=== PATIENT | male | born 1945 | race Caucasian/White ===

== ENCOUNTER 2017-02-09 19:57 | Observation (INO) ==
--- NOTE | 2017-02-09 20:14 | Emergency Department Note ---
Disposition Clinical Impression: Chest pain Qualifiers: Chest pain type: unspecified Qualified Code(s): R07.9 - Chest pain, unspecified Disposition: Admitted As Inpatient Condition: Undetermined Referrals: Aureliano Salamanca MD [Primary Care Provider] - Time of Disposition: 21:57 Chest Pain HPI - General Chief Complaint: ED Chest Pain Stated Complaint: chest pain Time Seen by Provider: 02/09/17 20:10 Source: patient, family Mode of arrival: ambulatory Limitations: no limitations Vital Signs Reviewed: Yes Nursing Notes Reviewed: Yes - History of Present Illness HPI Narrative: 71-year-old male with history of cardiac disease, hyperlipidemia, hypertension, diabetes arrives [facility] emergency department complaining of right sided chest discomfort after eating dinner this evening. The patient states he felt palpitations at the same time. The patient states is similar to his previous history of atrial fibrillation. The patient recently had a cardiac catheter with a stent placed roughly 3 weeks ago. The patient states, felt like his previous NV. The patient denies any other complaints at this time is resting comfortably in the room. The patient took 4 baby aspirin prior to arrival to the emergency department as well as 1 spray of his nitroglycerin spray. The patient states that did help his pain at that time. The patient is resting comfortably. Pt complaint: chest pain Onset (ago): hour(s) (1.5) Time: 19:30 Pain Location: substernal, right chest Severity: mild Severity scale (1-10): 2 Quality: tightness Pain Radiation: RUE Improves with: nothing Worsens with: nothing Associated symptoms: Reports: dyspnea, palpitations. Denies: diaphoresis Treatments prior to arrival chest pain: aspirin, nitroglycerin - Related Data On Oral Contraceptives: No Home Medications Medication Instructions Recorded Confirmed Atorvastatin [Lipitor] 40 mg PO HS 01/01/15 01/18/17 Canagliflozin [Invokana] 300 mg PO QAM 01/01/15 01/18/17 Esomeprazole Magnesium [Nexium] 40 mg PO QAM 01/01/15 01/18/17 Isosorbide MONOnitrate (24 HR) 30 mg PO BID 01/01/15 01/18/17 [Imdur] Glimepiride [Amaryl] 4 mg PO DAILY 10/08/15 01/18/17 Apixaban [Eliquis] 2.5 mg PO BID 01/18/17 01/18/17 Carvedilol 12.5 mg PO BID 01/18/17 01/18/17 Fenofibrate Nanocrystallized 48 mg PO DAILY 01/18/17 01/18/17 [Tricor] Gabapentin [Neurontin] 600 mg PO TID 01/18/17 01/18/17 Sitagliptin Phosphate [Januvia] 50 mg PO DAILY 01/18/17 01/18/17 Previous Rx's Medication Instructions Recorded Clopidogrel [Plavix] 75 mg PO DAILY #30 tablet 01/22/16 Aspirin 81 mg PO DAILY #30 01/20/17 Diltiazem CD (24hr) [Cardizem CD] 120 mg PO DAILY #30 01/20/17 Allergies Allergy/AdvReac Type Severity Reaction Status Date / Time bacitracin Allergy Intermediate Blister Verified 01/18/17 16:57 [From Neosporin ([id number])] Neomycin Allergy Intermediate Blister Verified 01/18/17 16:57 [From Neosporin ([id number])] polymyxin B Allergy Intermediate Blister Verified 01/18/17 16:57 [From Neosporin ([id number])] All systems ED: reviewed and negative except as stated. Constitutional: Denies: fever, chills Cardiovascular: Reports: chest pain, palpitations, dyspnea on exertion. Denies : edema, syncope Respiratory: Reports: dyspnea. Denies: cough, wheezes, hemoptysis, sputum production Gastrointestinal: Denies: abdominal pain, nausea, vomiting Genitourinary: Denies: urgency, dysuria Musculoskeletal: Denies: back pain Neurological: Denies: headache Chest Pain PMH - Past Medical History Medical history: Reports: arthritis, atrial fibrillation, cancer, coronary artery disease, diabetes, GERD, hyperlipidemia, hypertension, myocardial infarction Surgical history: Reports: angioplasty/stent, cataract, cholecystectomy, coronary bypass (CABG), other (AF ablation 2010 outside hospital) Psychiatric history: Reports: no psych history - Social History Smoking Status: Former smoker Alcohol use: Reports: none Drug use: Reports: none Physical Exam - General Limitations: no limitations General appearance: alert, in no apparent distress - Head Head exam: atraumatic, normocephalic, normal inspection - Eye Eye exam: Present: normal appearance, PERRL, EOMI - ENT ENT exam: normal exam, normal oropharynx, mucous membranes moist - Neck Neck exam: Present: normal inspection, full ROM, trachea midline - Chest Chest inspection: Present: normal inspection, symmetric chest wall rise - Respiratory Respiratory exam: Present: normal lung sounds bilaterally - Cardiovascular Cardiovascular exam: Present: regular rate, normal rhythm, normal heart sounds - Abdominal Exam Abdominal exam: Present: soft, Non-Tender. Absent: tenderness, distention, guarding, rebound, rigidity - Extremities Exam Extremities exam: Present: normal inspection, full ROM. Absent: tenderness, pedal edema Course Vital Signs Temperature 98.1 F 02/09/17 20:00 Pulse Rate 100 02/09/17 20:00 Respiratory Rate 16 02/09/17 20:00 Blood Pressure 164/89 02/09/17 20:00 O2 Sat by Pulse Oximetry 95 02/09/17 20:00 Temperature 98.1 F 02/09/17 20:00 Pulse Rate 93 02/09/17 20:47 Respiratory Rate 18 02/09/17 20:47 Blood Pressure 145/76 02/09/17 20:47 O2 Sat by Pulse Oximetry 94 02/09/17 20:47 Oxygen Delivery Oxygen Delivery Room Air Chest Pain - MDM Narrative Medical decision making narrative: Patient's symptoms are resolved with nitroglycerin. Given the patient's previous stent and history, and the relief of nitroglycerin we will admit the patient to the hospitalist for further care and workup. Patient made aware and agrees to plan. Active and no EKG changes noted from previous EKG. We will admit the patient to the hospitalists for ACS rule out, accepted by Dr. Marrero. - Medical Records Medical records reviewed: Yes I reviewed the patient's medical records. - Lab Data Lab results reviewed: Yes I reviewed the patient's lab results. Result diagrams: 02/09/17 20:49 02/09/17 20:49 Lab Results 02/09/17 02/09/17 02/09/17 Range/Units 20:49 20:49 20:49 WBC 9.6 (4.3-11.1) K/mcL RBC 4.64 (4.19-5.50) M/mcL Hgb 11.1 L (12.9-16.9) g/dL Hct 34.0 L (37.5-50.1) % MCV 73.3 L (83.0-100.0) fL MCH 23.9 L (28.0-33.3) pg MCHC 32.6 (31.6-35.5) g/dL RDW 17.6 H (11.5-14.5) % Plt Count 231 (140-400) K/mcL MPV 8.8 L (9.4-12.4) fL Immature Gran % 0.6 (0-4) % Seg Neutrophils % 73.0 % Lymphocytes % 16.8 % Monocytes % 7.1 % Eosinophils % 2.1 % Basophils % 0.4 % Neutrophils # 7.0 (1.6-8.9) K/mcL Lymphocytes # 1.6 (0.6-4.6) K/mcL Monocytes # 0.7 (0.0-1.3) K/mcL Eosinophils # 0.2 (0.0-0.6) K/mcL Basophils # 0.0 (0.0-0.2) K/mcL PT 14.0 H (9.4-12.1) Seconds INR 1.3 APTT 35.6 (26.0-36.0) Seconds Sodium 134 L (136-145) mEq/L Potassium 4.1 (3.5-4.5) mEq/L Chloride 100 (98-109) mEq/L Carbon Dioxide 21 (19-29) mEq/L BUN 19 (8-26) mg/dL Creatinine 1.44 H (0.72-1.25) mg/dL Est GFR ( Amer) 59 L (> 60) Est GFR (Non-Af Amer) 49 L (> 60) BUN/Creatinine Ratio 13 (6-26) Glucose 231 H (70-99) mg/dL Calculated Osmolality 288 (280-300) Calcium 9.8 (8.6-10.8) mg/dL Troponin I (0-0.03) ng/mL 02/09/17 Range/Units 20:49 WBC (4.3-11.1) K/mcL RBC (4.19-5.50) M/mcL Hgb (12.9-16.9) g/dL Hct (37.5-50.1) % MCV (83.0-100.0) fL MCH (28.0-33.3) pg MCHC (31.6-35.5) g/dL RDW (11.5-14.5) % Plt Count (140-400) K/mcL MPV (9.4-12.4) fL Immature Gran % (0-4) % Seg Neutrophils % % Lymphocytes % % Monocytes % % Eosinophils % % Basophils % % Neutrophils # (1.6-8.9) K/mcL Lymphocytes # (0.6-4.6) K/mcL Monocytes # (0.0-1.3) K/mcL Eosinophils # (0.0-0.6) K/mcL Basophils # (0.0-0.2) K/mcL PT (9.4-12.1) Seconds INR APTT (26.0-36.0) Seconds Sodium (136-145) mEq/L Potassium (3.5-4.5) mEq/L Chloride (98-109) mEq/L Carbon Dioxide (19-29) mEq/L BUN (8-26) mg/dL Creatinine (0.72-1.25) mg/dL Est GFR ( Amer) (> 60) Est GFR (Non-Af Amer) (> 60) BUN/Creatinine Ratio (6-26) Glucose (70-99) mg/dL Calculated Osmolality (280-300) Calcium (8.6-10.8) mg/dL Troponin I 0.01 (0-0.03) ng/mL - Radiology Data Radiology results reviewed: Yes I reviewed the patient's radiology results. - EKG Data EKG attestation: Yes I reviewed and interpreted this EKG. EKG results narrative: Heart rate 97 bpm. DC interval 192 ms. QTc 462 ms. Sinus rhythm with marketed right axis deviation and right bundle branch pattern noted on EKG. No ST elevation or ST depression noted. No consistent findings was Garcia criteria. Attestation Statement - Attestation Attestation: I examined this patient and my medical decision-making was reviewed with the Resident Physician. I agree with the documented findings, disposition and treatment plan as described except to the extent set forth below. Patient to ED complaining of chest pain. Right-sided onset this evening after eating. Improve with the nitroglycerin spray home. History coronary disease with last stent placement 3 weeks ago. On exam he is in no acute distress with clear lungs. Plan. Cardiac workup. EKG unchanged from prior. Likely observation.
[2017-02-09] MEDS ORDERED: Nitroglycerin 0.4 MG TAB.SUBL SL ONE (20:23)
[2017-02-09 20:55] LABS: Basophils % 0.4 %; Eosinophils # 0.2 K/mcL (0.0-0.6); Eosinophils % 2.1 %; Hemoglobin 11.1 g/dL (12.9-16.9); Immature Granulocytes % 0.6 % (0-4); Lymphocytes # 1.6 K/mcL (0.6-4.6); Lymphocytes % 16.8 %; Mean Corpuscular HGB Conc 32.6 g/dL (31.6-35.5); Mean Corpuscular Hemoglobin 23.9 pg (28.0-33.3); Mean Corpuscular Volume 73.3 fL (83.0-100.0); Mean Platelet Volume 8.8 fL (9.4-12.4); Monocytes # 0.7 K/mcL (0.0-1.3); Monocytes % 7.1 %; Platelet Count 231 K/mcL (140-400); Red Blood Count 4.64 M/mcL (4.19-5.50); Red Cell Distribution Width 17.6 % (11.5-14.5)
[2017-02-09 21:02] LABS: INR 1.3
[2017-02-09 21:05] LABS: Activated Partial Thrombo Time 35.6 Seconds (26.0-36.0)
[2017-02-09 21:09] LABS: Calcium 9.8 mg/dL (8.6-10.8); Potassium 4.1 mEq/L (3.5-4.5)
[2017-02-09] MEDS ORDERED: Naloxone 0.4 MG/ML INJ IVP PRN (23:08)
[2017-02-09] MEDS ORDERED: Dextrose Gel 15 GM PO PRN ×2 (23:10)
[2017-02-09] MEDS ORDERED: *HR* Dextrose 50 % in Water (Syg) 50 ML SYRINGE IVP PRN (23:10)
[2017-02-09] MEDS ORDERED: D5% in Water 1,000 ML IVC PRN (23:10)
[2017-02-09] MEDS ORDERED: Isosorbide MONOnitrate (24 HR) 30 MG TAB.ER.24H PO SCH (23:15)
[2017-02-09] MEDS ORDERED: APIXABAN 2.5 MG TABLET PO SCH ×3 (23:15→23:45)
[2017-02-09] MEDS ORDERED: LIPITOR 40 MG PO SCH (23:27)
--- NOTE | 2017-02-09 23:30 | Internal Med History&Physical ---
<Mine David M - Last Filed: 02/10/17 00:00> Date of Encounter: 02/10/17 Time of Encounter: 23:26 Assessment and Plan (1) Chest pain Current visit: Yes Status: Acute Patient reporting right sided chest pain accompanied by palpitations and relieved by nitro and aspirin this evening. EKG showed sinus rhythm with right bundle branch block and no ST elevations or depressions. Troponin was negative at 0.01. Patient had LHC 3 weeks ago with stent to SVG-1st diag. Echocardiogram at that time showed LVEF 45-50%, mild LV systolic dysfunction, moderate LV diastolic dysfunction and a small to moderate pericardial effusion at the right atrium. Continuous threat monitoring analyst serial troponins. echocardiogram to re-evaluate pericardial effusion cardiology consulted, will need to be called in the morning. NPO after midnight in case of possible testing per cardiology. Qualifiers: Chest pain type: precordial pain Qualified Code(s): R07.2 - Precordial pain (2) Coronary artery disease Current visit: Yes Status: Chronic Patient has CAD s/p CABG in 1999 and recent stents to Left main in May ( [facility]) and to the SVG-1st diag 3 weeks ago. He experienced chest pain today which was relieved by nitro and aspirin. Continue home doses of aspirin, plavix, atorvastatin, imdur. Qualifiers: Coronary Disease-Associated Artery/Lesion type: [place] artery [place] vs. transplanted heart: [place] heart Associated angina: with unstable angina Qualified Code(s): I25.110 - Atherosclerotic heart disease of [place] coronary artery with unstable angina pectoris (3) PAF (paroxysmal atrial fibrillation) Current visit: Yes Status: Acute Patient has history of paroxysmal atrial fibrillation, he is on diltiazem for rhythm control and Eliquis for anti-coagulation. EKG today shows sinus rhythm with right bundle branch block. Continuous threat monitoring analyst. Continue home doses of Eliquis and diltiazem. (4) Type 2 diabetes mellitus Current visit: Yes Status: Chronic Hold invokana, januvia and Amaryl. Given patient's CKD, should consider change to therapy, discuss with PCP as outpatient. Check Hgb A1c diabetic, heart healthy diet. Check blood sugars ACHS Sliding scale correction dose ACHS hypoglycemic protocol. Qualifiers: Diabetes mellitus complication status: with hyperglycemia Diabetes mellitus prison insulin use: without prison use Qualified Code(s): E11.65 - Type 2 diabetes mellitus with hyperglycemia (5) CKD (chronic kidney disease) Current visit: Yes Status: Acute Patient has CKD, but reports he does no follow with a intern retail. Creatinine of 1.44 today is consistent with recent values. Consider outpatient referral to Nephrology. Qualifiers: Chronic kidney disease stage: stage 3 (moderate) Qualified Code(s): N18.3 - Chronic kidney disease, stage 3 (moderate) (6) DVT prophylaxis Current visit: Yes Status: Acute anti-embolic stockings Patient on Eliquis for paroxysmal Afib, additional pharmacologic prophylaxis not warranted. Internal Medicine - H&P: HPI Chief complaint: chest pain Admitted From: Emergency Dept Plans for Post Hospital Care: Home History of present illness: Mr. Tiwari is a 71 year old male with history of hypertension, hyperlipidemia, atrial fibrillation chronic kidney disease, type 2 diabetes, coronary artery disease status post CABG and status post recent stent placements presented to the emergency department today with complaints of chest pain. Patient reports that he experienced right-sided chest pain after dinner this evening accompanied by palpitations. The pain radiated down his right arm. He describes the pain as sharp, and was relieved by aspirin and nitroglycerin he took at home. He is concerned about his atrial fibrillation since he was experiencing the palpitations. Patient denies any lightheadedness, nausea, vomiting, fever, chills or sweats. Patient reports mild headache on and off all week. He reports shortness of breath which he describes as chronic in nature and not worse from baseline. Patient was recently admitted 3 weeks ago at which time he had A. fib with RVR which required cardioversion and an NSTEMI resulting in left heart catheter with stent to one of his bypass grafts. Evaluation in the emergency department today including EKG which showed sinus rhythm with right bundle branch block and no ST elevations or depressions. Chest x-ray showed no acute cardiopulmonary abnormality. Troponin was negative at 0.01. Creatinine was elevated 1.44, but this seems to be consistent with his baseline. He is hyperglycemic with glucose of 231. On exam, patient alert and oriented, in no acute distress. Heart had regular rate and rhythm. Lungs are clear bilaterally to auscultation. Abdomen soft, obese, nontender, with positive bowel sounds. No peripheral edema. Past Med Surg Social Fam HX - Past Medical History Medical history: arthritis, atrial fibrillation, cancer, coronary artery disease , diabetes, GERD, hyperlipidemia, hypertension, myocardial infarction, renal disease Psychiatric history: no psych history - Past Surgical History Surgical History: angioplasty/stent, cataract, cholecystectomy, coronary bypass (CABG), other - Social History Smoking Status: Former smoker Smokeless Tobacco Status: No Alcohol use: none Drug use: none - Family History Father Adopted: No Family Member Ethnicity: Non- Living Status: Hx Family Cardiac Disorders: Yes (CAD) Hx Family Endocrine Disorder: Yes (Diabetes) Mother Living Status: Hx Family Endocrine Disorder: Yes (Diabetes) Internal Medicine - H&P: Meds Atorvastatin [Lipitor] 40 mg PO HS 01/01/15 [History] Canagliflozin [Invokana] 300 mg PO QAM 01/01/15 [History] Esomeprazole Magnesium [Nexium] 40 mg PO QAM 01/01/15 [History] Isosorbide MONOnitrate (24 HR) [Imdur] 30 mg PO BID 01/01/15 [History] Glimepiride [Amaryl] 4 mg PO DAILY 10/08/15 [History] Clopidogrel [Plavix] 75 mg PO DAILY #30 tablet 01/22/16 [Rx] Apixaban [Eliquis] 2.5 mg PO BID 01/18/17 [History] Carvedilol 12.5 mg PO BID 01/18/17 [History] Fenofibrate Nanocrystallized [Tricor] 48 mg PO DAILY 01/18/17 [History] Gabapentin [Neurontin] 600 mg PO TID 01/18/17 [History] Sitagliptin Phosphate [Januvia] 50 mg PO DAILY 01/18/17 [History] Aspirin 81 mg PO DAILY #30 01/20/17 [Rx] Diltiazem CD (24hr) [Cardizem CD] 120 mg PO DAILY #30 01/20/17 [Rx] 3 Allergy/AdvReac Type Severity Reaction Status Date / Time bacitracin Allergy Intermediate Blister Verified 01/18/17 16:57 [From Neosporin ([id number])] Neomycin Allergy Intermediate Blister Verified 01/18/17 16:57 [From Neosporin ([id number])] polymyxin B Allergy Intermediate Blister Verified 01/18/17 16:57 [From Neosporin ([id number])] All Systems PM: A 10-system review of systems was performed and is negative for pertinent findings except as documented above in the HPI. - Constitutional Constitutional: no chills, no fever(s), no night sweats - EENT Eyes: no change in vision, no discharge, no pain, no photophobia Ears: no ear discharge, no ear pain, no tinnitus Nose, mouth and throat: no dysphagia, no nasal discharge, no neck pain, no sore throat - Cardiovascular Cardiovascular ROS IM: chest pain, dyspnea, palpitations, no diaphoresis, no lightheadedness, no syncope - Respiratory Respiratory: dyspnea, no cough, no wheezing, no excessive phlegm production - Gastrointestinal Gastrointestinal: no abdominal pain, no diarrhea, no hematemesis, no hematochezia, no melena, no nausea, no vomiting - Musculoskeletal Musculoskeletal ROS IM: no numbness, no tingling - Integumentary Integumentary IM: no rash, no unusual bruising - Neurological Neurological ROS: headache(s), no confusion, no convulsions, no focal weakness, no numbness, no tingling, no tremor(s) - Hematologic/Lymphatic Hematologic/Lymphatic: no easy bruising - Constitutional Vitals: Temp Pulse Resp BP Pulse Ox 98.1 F 88 18 144/81 95 02/09/17 22:31 02/09/17 22:17 02/09/17 22:31 02/09/17 22:31 02/09/17 22:17 General appearance: Present: A&O X 3, morbidly obese, pleasant, no acute distress - Head Head exam: Present: atraumatic, normocephalic - Eye Eye exam: Present: PERRL, conjuntiva pink, sclera anicteric Pupils: Present: PERRL - Neck Neck exam general surgery: Present: supple, trachea midline. Absent: lymphadenopathy - Respiratory Respiratory exam: Present: CTAB. Absent: accessory muscle use, rales, rhonchi, wheezes - Cardiovascular Cardiovascular exam: Present: RRR, +S1, +S2. Absent: diastolic murmur, gallop, rubs, systolic murmur - GI/Abdominal GI/Abdominal exam: Present: normal bowel sounds, soft, no peritoneal signs. Absent: distended, tenderness - Extremities Exam Extremities exam: Present: warm, radial pulses palpable and symmetrical. Absent : calf tenderness, cyanotic, pedal edema - Neurological Exam Neurological exam: Present: CN II-XII intact, oriented X3, no focal deficits. Absent: pronater drift, facial droop, speech deficit - Skin Skin exam: Present: dry, intact Internal Med - H&P Results - Labs CBC & Chem 7: 02/09/17 20:49 02/09/17 20:49 Labs: All Lab Results (24 Hours) 02/09/17 02/09/17 02/09/17 Range/Units 20:49 20:49 20:49 WBC 9.6 (4.3-11.1) K/mcL RBC 4.64 (4.19-5.50) M/mcL Hgb 11.1 L (12.9-16.9) g/dL Hct 34.0 L (37.5-50.1) % MCV 73.3 L (83.0-100.0) fL MCH 23.9 L (28.0-33.3) pg MCHC 32.6 (31.6-35.5) g/dL RDW 17.6 H (11.5-14.5) % Plt Count 231 (140-400) K/mcL MPV 8.8 L (9.4-12.4) fL Immature Gran % 0.6 (0-4) % Seg Neutrophils % 73.0 % Lymphocytes % 16.8 % Monocytes % 7.1 % Eosinophils % 2.1 % Basophils % 0.4 % Neutrophils # 7.0 (1.6-8.9) K/mcL Lymphocytes # 1.6 (0.6-4.6) K/mcL Monocytes # 0.7 (0.0-1.3) K/mcL Eosinophils # 0.2 (0.0-0.6) K/mcL Basophils # 0.0 (0.0-0.2) K/mcL PT 14.0 H (9.4-12.1) Seconds INR 1.3 APTT 35.6 (26.0-36.0) Seconds Sodium 134 L (136-145) mEq/L Potassium 4.1 (3.5-4.5) mEq/L Chloride 100 (98-109) mEq/L Carbon Dioxide 21 (19-29) mEq/L BUN 19 (8-26) mg/dL Creatinine 1.44 H (0.72-1.25) mg/dL Est GFR ( Amer) 59 L (> 60) Est GFR (Non-Af Amer) 49 L (> 60) BUN/Creatinine Ratio 13 (6-26) Glucose 231 H (70-99) mg/dL Calculated Osmolality 288 (280-300) Calcium 9.8 (8.6-10.8) mg/dL Troponin I (0-0.03) ng/mL 02/09/17 Range/Units 20:49 WBC (4.3-11.1) K/mcL RBC (4.19-5.50) M/mcL Hgb (12.9-16.9) g/dL Hct (37.5-50.1) % MCV (83.0-100.0) fL MCH (28.0-33.3) pg MCHC (31.6-35.5) g/dL RDW (11.5-14.5) % Plt Count (140-400) K/mcL MPV (9.4-12.4) fL Immature Gran % (0-4) % Seg Neutrophils % % Lymphocytes % % Monocytes % % Eosinophils % % Basophils % % Neutrophils # (1.6-8.9) K/mcL Lymphocytes # (0.6-4.6) K/mcL Monocytes # (0.0-1.3) K/mcL Eosinophils # (0.0-0.6) K/mcL Basophils # (0.0-0.2) K/mcL PT (9.4-12.1) Seconds INR APTT (26.0-36.0) Seconds Sodium (136-145) mEq/L Potassium (3.5-4.5) mEq/L Chloride (98-109) mEq/L Carbon Dioxide (19-29) mEq/L BUN (8-26) mg/dL Creatinine (0.72-1.25) mg/dL Est GFR ( Amer) (> 60) Est GFR (Non-Af Amer) (> 60) BUN/Creatinine Ratio (6-26) Glucose (70-99) mg/dL Calculated Osmolality (280-300) Calcium (8.6-10.8) mg/dL Troponin I 0.01 (0-0.03) ng/mL - Diagnostic Studies Chest x-ray Additional comments: Chest X-Ray 02/09/17 20:23 IMPRESSION: No acute cardiopulmonary abnormality. D/ / Reinaldo Garcia MD / Reinaldo Garcia MD Interpreting Provider: Reinaldo Garcia MD <James Ryan - Last Filed: 02/10/17 04:17> Date of Encounter: 02/10/17 Time of Encounter: 02:40 - Cardiovascular Cardiovascular ROS IM: chest pain, dyspnea - Respiratory Respiratory: no cough, no hemoptysis, no chest congestion - Genitourinary Genitourinary ROS male: no dysuria, no flank pain, no hematuria - Musculoskeletal Musculoskeletal ROS IM: no arthralgias, no back pain - Neurological Neurological ROS: no focal weakness - Endocrine Endocrine IM: no polydipsia, no polyuria - Constitutional Vitals: Temp Pulse Resp BP Pulse Ox 98.2 F 83 16 161/79 97 02/09/17 23:38 02/09/17 23:38 02/09/17 23:38 02/09/17 23:38 02/09/17 23:38 General appearance: Present: A&O X 3, pleasant, no acute distress - Head Head exam: Present: normal inspection - Eye Eye exam: Present: PERRL. Absent: scleral icterus Pupils: Present: normal accommodation - ENT ENT exam: Present: mucous membranes dry, normal exam - Neck Neck exam general surgery: Present: supple. Absent: tenderness - Expanded Neck Exam Neck exam: Absent: carotid bruit - Respiratory Respiratory exam: Present: CTAB. Absent: rales, rhonchi, wheezes - Cardiovascular Cardiovascular exam: Present: RRR, +S1, +S2. Absent: systolic murmur - GI/Abdominal GI/Abdominal exam: Present: soft. Absent: tenderness - Back Exam Back exam: Absent: CVA tenderness (L), CVA tenderness (R) - Psychiatric Psychiatric exam: Present: normal affect, normal mood - Skin Skin exam: Present: dry, warm. Absent: rash Internal Med - H&P Results - Labs CBC & Chem 7: 02/09/17 20:49 02/09/17 20:49 - EKG Data -: EKG Interpreted by Myself EKG shows normal: sinus rhythm - EKG Data EKG comments: 02/10/17 04:12 NSR; no acute changes - Diagnostic Studies Chest x-ray Status: image reviewed by me (negative) - Attending Attestation I discussed the patient [place], PMH, ROS, lab data, and exam findings with Mine David CNP. I then saw and examined patient independently as well. Patient and confirm the above history. He is chest pain free now. He took aspirin and SL NTG en route to ER. By the time he arrived to ER, he was chest pain free. I reviewed his old records and recent ECHO report where he had a mild to moderate pericardial effusion. We will cycle troponins, repeat ECHO in the morning, and consult cardiology. He may need further cardiac work-up/ intervention. Other than my comments above and noted exam findings, I agree with Mine's assessment and plan.
[2017-02-09] MEDS: IMDUR 30 MG PO SCH (23:54)
[2017-02-09] MEDS: Gabapentin 300 MG CAPSULE PO SCH (23:55)
[2017-02-09] MEDS: COREG 25 MG PO SCH (23:59)
[2017-02-10 02:15] LABS: Hemoglobin A1C 6.5 %
[2017-02-10 04:15] LABS: Basophils # 0.1 K/mcL (0.0-0.2); Basophils % 0.7 %; Eosinophils # 0.2 K/mcL (0.0-0.6); Eosinophils % 2.7 %; Hematocrit 33.1 % (37.5-50.1); Hemoglobin 10.7 g/dL (12.9-16.9); Immature Granulocytes % 0.6 % (0-4); Lymphocytes # 1.7 K/mcL (0.6-4.6); Lymphocytes % 24.3 %; Mean Corpuscular HGB Conc 32.3 g/dL (31.6-35.5); Mean Corpuscular Hemoglobin 24.2 pg (28.0-33.3); Mean Corpuscular Volume 74.7 fL (83.0-100.0); Mean Platelet Volume 9.1 fL (9.4-12.4); Monocytes # 0.6 K/mcL (0.0-1.3); Monocytes % 8.4 %; Neutrophils # 4.5 K/mcL (1.6-8.9); Platelet Count 215 K/mcL (140-400); Red Blood Count 4.43 M/mcL (4.19-5.50); Segmented Neutrophils % 63.3 %
[2017-02-10 04:28] LABS: BUN/Creatinine Ratio 15 (6-26); Blood Urea Nitrogen 19 mg/dL (8-26); Calcium 9.4 mg/dL (8.6-10.8); Carbon Dioxide 25 mEq/L (19-29); Chloride 100 mEq/L (98-109); Glucose 176 mg/dL (70-99); Osmolality,Calculated 285 (280-300); Sodium 134 mEq/L (136-145); eGFR For African Americans > 60 (> 60); eGFR For Non-African Americans 57 (> 60)
[2017-02-10] MEDS ORDERED: Aspirin 325 MG TABLET PO ONE (04:46)
--- NOTE | 2017-02-10 04:52 | Event Note ---
Date of Encounter: 02/10/17 Time of Encounter: 04:49 Second serial troponin elevated from 0.01 to 0.14, patient denies CP and is resting comfortably in bed. Patient took last dose of Eliquis 2.5mg and ASA 325mg PO last night. Will order repeat EKG and start low dose Heparin drip. Trend serial troponin and await cardiology consultation.
[2017-02-10] MEDS ORDERED: NEXIUM 40MG PO SCH (06:30)
[2017-02-10] MEDS: COREG 25 MG PO SCH ×2 (08:16→16:22)
[2017-02-10] MEDS: Gabapentin 300 MG CAPSULE PO SCH ×2 (08:16→15:47)
[2017-02-10] MEDS: IMDUR 30 MG PO SCH (08:17)
[2017-02-10] MEDS: Insulin LISPRO 300 UNITS/3 ML VIAL SQ SCH ×3 (08:22→16:24)
[2017-02-10] MEDS ORDERED: 0.9 % Sodium Chloride 250 ML IVC ONE (08:34)
--- NOTE | 2017-02-10 08:57 | Cardiology Consult Note ---
Date of Encounter: 02/10/17 Time of Encounter: 08:55 Assessment and Plan (1) PAF (paroxysmal atrial fibrillation) Current Visit: Yes Status: Chronic Per Cardiology: Known history of paroxysmal atrial fibrillation. reviewed from last visit the patient presented with A. fib with RVR requiring 1 fibrillation for conversion. During hospital stay Cardizem CD 120 mg by mouth daily was initiated. Patient remains on Coreg 12 and half milligrams by mouth twice a day. No further events noted on telemetry. Patient appears to have brief episode of A. fib with RVR based on his presentation. Will increase Cardizem CD to 240 mg by mouth daily. Regarding long-term anticoagulation, currently taking Eliquis 2.5 mg by mouth twice a day-- reports following with Dr. Dominguez in currently taking aspirin and Plavix with his anticoagulation for one month since his stent. They report plans to eventually discontinue aspirin in the near future and have further discussion regarding increasing dose of his Eliquis. Assuming no significant findings on echo, would discontinue heparin drip and resume his anticoagulation. (2) Chest pain Current Visit: Yes Status: Acute Per Cardiology: Currently chest pain-free. Symptoms occurred and what appears to be setting of A. fib with RVR that lasted for about 10 minutes. Prior to event has not been having chest pain since recent stenting and not requiring nitroglycerin pills. Qualifiers: Chest pain type: precordial pain Qualified Code(s): R07.2 - Precordial pain (3) Troponin level elevated Current Visit: No Status: Acute Per Cardiology: Recent non-STEMI January 2017 with peak troponin 3.56. Initial troponin negative and second troponin mild elevation of 0.14 and now 0.09. Of note has mild troponin elevations January 2016 and December 2014 as well. Currently on IV heparin drip. Do not suspect non-STEMI, suspect demand ischemia in apparent setting of A. fib with RVR. Echo pending. Further recommendations pending echo results. (4) Coronary artery disease Current Visit: Yes Status: Chronic Per Cardiology: Known history of CAD with previous stenting and CABG 3 in 1999. Last heart catheterization in January 2017 in setting of non-STEMI showed patent CHATMAN to mid LAD, patent SVG to OM1, patent SVG to right PDA, SVG to diagonal 1 with 80- 90% lesion status post PTCA and bare-metal stent placement. Patient currently taking his home medications of Imdur 30 mg by mouth daily, Lipitor 40 mg by mouth daily, Coreg 12-1/2 mg by mouth twice a day, Plavix 75 mg by mouth daily, Cardizem CD 120 mg by mouth daily. Qualifiers: Coronary Disease-Associated Artery/Lesion type: [place] artery [place] vs. transplanted heart: [place] heart Associated angina: with unstable angina Qualified Code(s): I25.110 - Atherosclerotic heart disease of [place] coronary artery with unstable angina pectoris (5) CKD (chronic kidney disease) Current Visit: Yes Status: Chronic Per Cardiology: History of CK D stage IIIa, currently about baseline. Qualifiers: Chronic kidney disease stage: stage 3 (moderate) Qualified Code(s): N18.3 - Chronic kidney disease, stage 3 (moderate) Discussion w patient/family: The assessment and plan as outlined above was discussed with the patient and/or family members who expressed understanding and agreement. All questions were answered. Thank you for involving us in the care of your patient. Please call with any questions. History of Present Illness Consult date: 02/10/17 Requesting physician: James Ryan Consult reason: CP Chief complaint: R sided CP with HR 160's (I was in afib) History of present illness: Mr. Tiwari is a 71 year old male with a relevant past medical history of CAD with stenting and CABG, paroxysmal atrial fibrillation with ablation in 2009, hypertension, hyperlipidemia, diabetes mellitus type 2, GERD, CKD 3a. Recently seen by cardiology during hospital stay January 2017 and underwent left heart catheterization with bare metal stent to SVG to right PDA. Cardiology consult for chest pain and concerns of previous pericardial effusion. Patient seen today with at bedside. Reports all Dr. Dominguez after last hospitalization for his non-STEMI and stenting and since that visit has been asymptomatic until yesterday evening. He reports while eating dinner yesterday he developed sudden onset of right-sided chest tightness. He reports he checked his blood pressures systolically when the 150s initially noted a heart rate about 110 and repeat was in the 160s. He felt he was back in his A. fib. He reports symptoms lasted for a total of about 10 minutes and eventually subsided. He denies any recurrence during hospital stay. He reports compliance with medications and has not missed his Plavix or aspirin. He reports he continues on Eliquis 2.5 mg by mouth twice a day with pending discontinuation of aspirin in the next week. He denies any active bleeding or blood loss. He denies any recent infectious process. Has not utilized nitroglycerin. Past Med Surg Social Fam HX - Past Medical History Attestation: Yes The following information was validated with the patient. Source: patient, old records reviewed, obtained from family Medical history: arthritis, atrial fibrillation, cancer, coronary artery disease , diabetes, GERD, hyperlipidemia, hypertension, myocardial infarction, renal disease Psychiatric history: no psych history - Past Surgical History Surgical History: angioplasty/stent, cataract, cholecystectomy, coronary bypass (CABG), other - Social History Smoking Status: Former smoker Smokeless Tobacco Status: No Alcohol use: none Drug use: none - Family History Father Adopted: No Family Member Ethnicity: Non- Living Status: Hx Family Cardiac Disorders: Yes (CAD) Hx Family Endocrine Disorder: Yes (Diabetes) Mother Living Status: Hx Family Endocrine Disorder: Yes (Diabetes) Medications and Allergies Atorvastatin [Lipitor] 40 mg PO HS 01/01/15 [History] Canagliflozin [Invokana] 300 mg PO QAM 01/01/15 [History] Esomeprazole Magnesium [Nexium] 40 mg PO QAM 01/01/15 [History] Isosorbide MONOnitrate (24 HR) [Imdur] 30 mg PO BID 01/01/15 [History] Glimepiride [Amaryl] 4 mg PO DAILY 10/08/15 [History] Clopidogrel [Plavix] 75 mg PO DAILY #30 tablet 01/22/16 [Rx] Apixaban [Eliquis] 2.5 mg PO BID 01/18/17 [History] Carvedilol 12.5 mg PO BID 01/18/17 [History] Fenofibrate Nanocrystallized [Tricor] 48 mg PO DAILY 01/18/17 [History] Gabapentin [Neurontin] 600 mg PO TID 01/18/17 [History] Sitagliptin Phosphate [Januvia] 50 mg PO DAILY 01/18/17 [History] Aspirin 81 mg PO DAILY #30 01/20/17 [Rx] Diltiazem CD (24hr) [Cardizem CD] 120 mg PO DAILY #30 01/20/17 [Rx] 3 Allergy/AdvReac Type Severity Reaction Status Date / Time bacitracin Allergy Intermediate Blister Verified 01/18/17 16:57 [From Neosporin ([id number])] Neomycin Allergy Intermediate Blister Verified 01/18/17 16:57 [From Neosporin ([id number])] polymyxin B Allergy Intermediate Blister Verified 01/18/17 16:57 [From Neosporin ([id number]-[id number]-[id number])] All Systems Review: A 10-system review of systems was performed and is negative for pertinent findings except as documented above in the HPI. - Cardiovascular Cardiovascular: as per HPI, chest pain at rest, irregular heart rhythm, rapid heart rate Physical Examination Vital Signs, Last 4 Hours Temp Pulse Resp BP Pulse Ox 02/10/17 06:58 97.4 F L 77 18 93/60 96 General: Conversant, No Apparent Distress HEENT: Atraumatic, Normocephaly, Mucus Membranes Moist Neck: No JVD, Normal carotid pulses Cardiac: Reg Rate and Rhythm, Normal S1 and S2, No Murmur Lungs: Normal Breath Sounds, No Wheeze, Rales, Rhonchi Neuro: Alert and responsive, No focal deficits noted Abdomen: Soft, Non-Tender Skin: No rashes noted on visualized skin Musculoskeletal: No Chest Wall Tenderness Extremities: No Clubbing, No Cyanosis, No Edema, Normal Pulses Results 02/10/17 03:41 02/10/17 03:41 Lab Results Laboratory Tests 01/20/17 02/09/17 02/09/17 05:23 20:49 20:49 INR 1.3 Creatinine 1.44 H Est GFR (Non-Af Amer) 52 L 49 L Magnesium 2.0 Troponin I 02/09/17 02/10/17 02/10/17 20:49 03:41 03:41 INR Creatinine 1.25 Est GFR (Non-Af Amer) 57 L Magnesium Troponin I 0.01 0.14 H* ITS Impressions Chest X-Ray 02/09/17 20:23 IMPRESSION: No acute cardiopulmonary abnormality. D/ / Reinaldo Garcia MD / Reinaldo Garcia MD Interpreting Provider: Reinaldo Garcia MD Active Medications Dextrose/Water (Dextrose 50% (Syg)) 25 ml IVP AD PRN PRN Reason: Hypoglycemia Stop: 08/11/17 23:11 Docusate Sodium (Colace) 100 mg PO BID PRN PRN Reason: Constipation Stop: 08/11/17 23:09 Gabapentin (Neurontin) 600 mg PO TID KAELA Stop: 08/11/17 23:16 Last Admin: 02/10/17 08:16 Dose: Not Given Glucagon (Glucagen) 1 mg IM ONCE PRN PRN Reason: Hypoglycemia Stop: 08/11/17 23:11 Glucose (Gluctose) 15 gm PO ONCE PRN PRN Reason: Hypoglycemia Stop: 08/11/17 23:11 Glucose (Gluctose) 30 gm PO ONCE PRN PRN Reason: Hypoglycemia Stop: 08/11/17 23:11 Heparin Sodium (Porcine) (Heparin) 4,000 unit IVP ONCE ONE Stop: 02/10/17 11:01 Heparin Sodium (Porcine) (Heparin) 4,000 unit IVP Q6HR PRN PRN Reason: SEE COMMENTS Stop: 08/12/17 11:01 Heparin Sodium (Porcine) (Heparin) 2,000 unit IVP Q6H PRN PRN Reason: SEE COMMENTS Stop: 08/12/17 11:01 Dextrose (Dextrose 5%) 1,000 mls @ 100 mls/hr IVC .Q10H PRN PRN Reason: HYPOGLYCEMIA Stop: 08/11/17 23:11 Heparin Sodium/Dextrose (Heparin 25,000 Unit/500 Ml D5w) 25,000 unit in 500 mls @ 20.044 mls/hr IVC .Q24H KAELA; 9 UNIT/KG/HR PRN Reason: Protocol Stop: 08/12/17 11:01 Insulin Human Lispro (Humalog) 0 units SQ TIDAC KAELA PRN Reason: Protocol Stop: 08/12/17 07:31 Last Admin: 02/10/17 08:22 Dose: 2 units Insulin Human Lispro (Humalog) 0 units SQ HS KAELA PRN Reason: Protocol Stop: 08/12/17 21:01 Naloxone HCl (Narcan) 0.4 mg IVP Q2MIN PRN PRN Reason: Opioid Reversal Stop: 08/11/17 23:09 Pharmacy Profile Note (Patient Taking Own Medication) 1 each PO DAILY KAELA Stop: 08/12/17 09:01 Last Admin: 02/10/17 08:17 Dose: 1 each Pharmacy Profile Note (Patient Taking Own Medication) 1 each PO DAILY KAELA Stop: 08/12/17 09:01 Last Admin: 02/10/17 08:18 Dose: 1 each Pharmacy Profile Note (Patient Taking Own Medication) 1 each PO DAILY KAELA Stop: 08/12/17 09:01 Last Admin: 02/10/17 08:17 Dose: 1 each Pharmacy Profile Note (Patient Taking Own Medication) 1 each PO 0630 KAELA Stop: 08/12/17 06:31 Last Admin: 02/10/17 06:10 Dose: 1 each Pharmacy Profile Note (Patient Taking Own Medication) 1 each PO DAILY KAELA Stop: 08/12/17 09:01 Last Admin: 02/10/17 08:18 Dose: 1 each Pharmacy Profile Note (Patient Taking Own Medication) 1 each PO HS KAELA Stop: 08/11/17 23:28 Last Admin: 02/09/17 23:54 Dose: 1 each Pharmacy Profile Note (Patient Taking Own Medication) 1 each PO BID KAELA Stop: 08/11/17 23:16 Last Admin: 02/10/17 08:17 Dose: 1 each Pharmacy Profile Note (Patient Taking Own Medication) 0.5 each PO BIDWM KAELA Stop: 08/11/17 23:46 Last Admin: 02/10/17 08:16 Dose: Not Given - Imaging and Cardiology Chest Xray: report reviewed Echo: pending, report reviewed Cardiac cath: report reviewed - EKG Interpretation EKG results cardiology: personally reviewed (ECG shows sinus rhythm with right bundle-branch block, comparable to baseline ECG.), normal ECG, sinus rhythm, no diagnostic ischemia, other (24-hour telemetry shows heart rate 78, sinus rhythm , no significant events noted) Consult Discharge Plan - Plan Referrals: Aureliano Salamanca MD [Primary Care Provider] - 02/16/17 2:00 pm
[2017-02-10] MEDS ORDERED: Aspirin 81 MG TAB.CHEW PO SCH (09:00)
[2017-02-10] MEDS ORDERED: DILTIAZEM 120 MG PO SCH (09:00)
[2017-02-10] MEDS ORDERED: ASPIRIN 81 MG PO SCH (09:00)
[2017-02-10] MEDS ORDERED: FENOFIBRATE 48 MG PO SCH (09:00)
[2017-02-10] MEDS ORDERED: *HR* Heparin 5,000 UNIT/ML VIAL IVP ONE (11:00)
[2017-02-10] MEDS ORDERED: *HR* Heparin 5,000 UNIT/ML VIAL IVP PRN ×2 (11:00)
[2017-02-10] MEDS ORDERED: Heparin 25,000 UNIT/500 ML D5W 25,000 UNIT/500 ML MLS IVC SCH (11:00)
[2017-02-10 14:55] VITALS: BP 135/71
--- NOTE | 2017-02-10 16:28 | Discharge Summary ---
Date of Encounter: 02/10/17 Time of Encounter: 16:24 - Discharge Medications Home Medications: Atorvastatin [Lipitor] 40 mg PO HS 01/01/15 [History] Canagliflozin [Invokana] 300 mg PO QAM 01/01/15 [History] Esomeprazole Magnesium [Nexium] 40 mg PO QAM 01/01/15 [History] Isosorbide MONOnitrate (24 HR) [Imdur] 30 mg PO BID 01/01/15 [History] Glimepiride [Amaryl] 4 mg PO DAILY 10/08/15 [History] Clopidogrel [Plavix] 75 mg PO DAILY #30 tablet 01/22/16 [Rx] Apixaban [Eliquis] 2.5 mg PO BID 01/18/17 [History] Carvedilol 12.5 mg PO BID 01/18/17 [History] Fenofibrate Nanocrystallized [Tricor] 48 mg PO DAILY 01/18/17 [History] Gabapentin [Neurontin] 600 mg PO TID 01/18/17 [History] Sitagliptin Phosphate [Januvia] 50 mg PO DAILY 01/18/17 [History] Aspirin 81 mg PO DAILY #30 01/20/17 [Rx] Diltiazem CD (24hr) [Cardizem CD] 120 mg PO DAILY #30 01/20/17 [Rx] Allergies/Adverse Reactions: 3 Allergy/AdvReac Type Severity Reaction Status Date / Time bacitracin Allergy Intermediate Blister Verified 01/18/17 16:57 [From Neosporin ([id number])] Neomycin Allergy Intermediate Blister Verified 01/18/17 16:57 [From Neosporin (eon-voe-awmbf)] polymyxin B Allergy Intermediate Blister Verified 01/18/17 16:57 [From Neosporin ([id number]-hzt-[id number])] Procedures/tests Complete & Pending: Procedures Performed prior 72 hours Category Date Time Status ECG 12 lead ECG [ECG] Routine Y 02/09/17 20:02 Completed EKG [ECG 12 lead ECG] [ECG] Stat Y 02/10/17 04:46 Completed EV limited echocardiogram Routine Y 02/09/17 23:57 Completed Date of admission: 02/09/17 22:21 Primary care physician: Aureliano Salamanca MD Consults: 02/09/17 23:57 Consult to Cardiology [CONS] Routine Comment: Consulting Provider: Cardiology Kathy Reason for Consult: 71M with chest pain, had LHC with stent to bypass graft 3 weeks ago. also small - moderate pericardial effusion seen on echo 3 weeks ago. Call Completed: No 02/10/17 11:18 Consult to Environmental Services Worker [CONS] Routine Reason for SW Consult: Re-admit Discharging clinician: Susan Zarate Anticipated date of discharge: 02/10/17 - Patient Status Condition: Undetermined - Discharge Instructions Follow Up With: Aureliano Salamanca MD [Primary Care Provider] - 02/16/17 2:00 pm Forms: ED Satisfaction Letter Hospital course: Mr. Tiwari is a 71 year old male - Time Spent with Patient Total time spent providing and/or coordinating discharge services: - Constitutional Vitals: Temp Pulse Resp BP Pulse Ox 97.5 F L 81 20 135/71 96 02/10/17 14:52 02/10/17 14:52 02/10/17 14:52 02/10/17 14:52 02/10/17 14:52 General appearance: Present: A&O X 3, pleasant, no acute distress
--- NOTE | 2017-02-10 16:57 | Event Note ---
Date of Encounter: 02/10/17 Time of Encounter: 16:29 Jon Tiwari is a 71-year-old male with past medical history CAD status post recent PCI, A. fib on Xarelto, diabetes and suspected CTD who presented to [facility] on 02/10/2017 with complaints of chest pain. He was placed in observation status for ACS rule out. He was evaluated by cardiology and underwent a repeat echo which showed no significant changes. Cardiology suspects breakthrough episode of A. fib is the cause of chest pain and troponin leak. His home Cardizem was increased and he was discharged home in stable condition with outpatient cardiology follow-up 1. CAD: with previous stenting and CABG 3 in 1999. [facility] 01/2017 in setting of non -STEMI showed patent CHATMAN to mid LAD, patent SVG to OM1, patent SVG to right PDA , SVG to diagonal 1 with 80-90% lesion status post PTCA and bare-metal stent placement. Troponin peaked at 0.14 and trended down. Evaluated by cardiology who suspected troponin leak secondary to breakthrough episode of A. fib. No further cardiac workup indicated at this time. Continue home ASA, Plavix, Xarelto, nitrate, BB. Will need to follow-up with cardiology in 2-3 weeks 2. A-fib: Required cardioversion during 01/2017 hospitalization. Patient reported palpitations prior to episode of chest pain. Repeat echo 02/10/17 with EF 40-45%, stable pericardial effusion. Evaluated by cardiology who suspects breakthrough episode of A. fib. Home diltiazem increase. Played a follow-up with cardiology in 2-3 weeks. 3. Diabetes: Hgb A1c 6.5%. Continue home medication regimen 4. DVT prophylaxis: Xarelto
--- NOTE | 2017-02-10 17:01 | Discharge Summary ---
Date of Encounter: 02/10/17 Time of Encounter: 16:57 - Discharge Diagnosis (1) Afib Priority: Primary Status: Chronic Comments: Jon Tiwari is a 71-year-old male with past medical history CAD status post recent PCI, A. fib on Xarelto, diabetes and suspected CTD who presented to [facility] on 02/10/2017 with complaints of chest pain. He was placed in observation status for ACS rule out. He was evaluated by cardiology and underwent a repeat echo which showed no significant changes. Cardiology suspects breakthrough episode of A. fib is the cause of chest pain and troponin leak. His home Cardizem was increased and he was discharged home in stable condition with outpatient cardiology follow-up 1. CAD: with previous stenting and CABG 3 in 1999. [facility] 01/2017 in setting of non -STEMI showed patent CHATMAN to mid LAD, patent SVG to OM1, patent SVG to right PDA , SVG to diagonal 1 with 80-90% lesion status post PTCA and bare-metal stent placement. Troponin peaked at 0.14 and trended down. Evaluated by cardiology who suspected troponin leak secondary to breakthrough episode of A. fib. No further cardiac workup indicated at this time. Continue home ASA, Plavix, Xarelto, nitrate, BB. Will need to follow-up with cardiology in 2-3 weeks 2. A-fib: Required cardioversion during 01/2017 hospitalization. Patient reported palpitations prior to episode of chest pain. Repeat echo 02/10/17 with EF 40-45%, stable pericardial effusion. Evaluated by cardiology who suspects breakthrough episode of A. fib. Home diltiazem increase. Played a follow-up with cardiology in 2-3 weeks. 3. Diabetes: Hgb A1c 6.5%. Continue home medication regimen 4. DVT prophylaxis: Xarelto Qualifiers: Atrial fibrillation type: paroxysmal Qualified Code(s): I48.0 - Paroxysmal atrial fibrillation (2) Chest pain Priority: Primary Status: Acute Qualifiers: Chest pain type: precordial pain Qualified Code(s): R07.2 - Precordial pain (3) NSTEMI (non-ST elevated myocardial infarction) Priority: Primary Status: Acute - Discharge Medications Prescriptions: Diltiazem CD (24hr) [Cardizem CD] 180 mg PO DAILY #30 cap.er.24h Home Medications: Atorvastatin [Lipitor] 40 mg PO HS 01/01/15 [History] Canagliflozin [Invokana] 300 mg PO QAM 01/01/15 [History] Esomeprazole Magnesium [Nexium] 40 mg PO QAM 01/01/15 [History] Isosorbide MONOnitrate (24 HR) [Imdur] 30 mg PO BID 01/01/15 [History] Glimepiride [Amaryl] 4 mg PO DAILY 10/08/15 [History] Clopidogrel [Plavix] 75 mg PO DAILY #30 tablet 01/22/16 [Rx] Apixaban [Eliquis] 2.5 mg PO BID 01/18/17 [History] Carvedilol 12.5 mg PO BID 01/18/17 [History] Fenofibrate Nanocrystallized [Tricor] 48 mg PO DAILY 01/18/17 [History] Gabapentin [Neurontin] 600 mg PO TID 01/18/17 [History] Sitagliptin Phosphate [Januvia] 50 mg PO DAILY 01/18/17 [History] Aspirin 81 mg PO DAILY #30 01/20/17 [Rx] Diltiazem CD (24hr) [Cardizem CD] 120 mg PO DAILY #30 01/20/17 [Rx] Diltiazem CD (24hr) [Cardizem CD] 180 mg PO DAILY #30 cap.er.24h 02/10/17 [Rx] Allergies/Adverse Reactions: 3 Allergy/AdvReac Type Severity Reaction Status Date / Time bacitracin Allergy Intermediate Blister Verified 01/18/17 16:57 [From Neosporin ([id number])] Neomycin Allergy Intermediate Blister Verified 01/18/17 16:57 [From Neosporin ([id number]-auf-[id number])] polymyxin B Allergy Intermediate Blister Verified 01/18/17 16:57 [From Neosporin (gma-idl-[id number])] Procedures/tests Complete & Pending: Procedures Performed prior 72 hours Category Date Time Status ECG 12 lead ECG [ECG] Routine Y 02/09/17 20:02 Completed EKG [ECG 12 lead ECG] [ECG] Stat Y 02/10/17 04:46 Completed EV limited echocardiogram Routine Y 02/09/17 23:57 Completed Date of admission: 02/09/17 22:21 Primary care physician: Aureliano Salamanca MD Consults: 02/09/17 23:57 Consult to Cardiology [CONS] Routine Comment: Consulting Provider: Cardiology Kathy Reason for Consult: 71M with chest pain, had LHC with stent to bypass graft 3 weeks ago. also small - moderate pericardial effusion seen on echo 3 weeks ago. Call Completed: No 02/10/17 11:18 Consult to Fancy Stitcher [CONS] Routine Reason for SW Consult: Re-admit Discharging clinician: Susan Zarate Anticipated date of discharge: 02/10/17 - Patient Status Disposition: Home, Self-Care Condition: Good Functional capacity at discharge: independent ambulation Overall status at discharge: patient is back to baseline - Discharge Instructions Follow Up With: Aureliano Salamanca MD [Primary Care Provider] - 02/16/17 2:00 pm Forms: ED Satisfaction Letter - Diet and Activity Activity: resume usual activities as tolerated Diet: low fat, low cholesterol Interval History: Patient was admitted earlier today for chest pain. Please see full H&P for further details. Hospital course: See assessment and plan for hospital course - Time Spent with Patient Total time spent providing and/or coordinating discharge services: Less than 30 minutes - Constitutional Vitals: Temp Pulse Resp BP Pulse Ox 97.5 F L 81 20 135/71 96 02/10/17 14:52 02/10/17 14:52 02/10/17 14:52 02/10/17 14:52 02/10/17 14:52 General appearance: Present: A&O X 3, morbidly obese, pleasant, no acute distress - Head Head exam: Present: atraumatic, normocephalic - Eye Eye exam: Present: PERRL, conjuntiva pink, sclera anicteric Pupils: Present: PERRL - Neck Neck exam general surgery: Present: supple, trachea midline. Absent: lymphadenopathy - Respiratory Respiratory exam: Present: CTAB. Absent: accessory muscle use, rales, rhonchi, wheezes - Cardiovascular Cardiovascular exam: Present: RRR, +S1, +S2. Absent: diastolic murmur, gallop, rubs, systolic murmur - GI/Abdominal GI/Abdominal exam: Present: normal bowel sounds, soft, no peritoneal signs. Absent: distended, tenderness - Extremities Exam Extremities exam: Present: warm, radial pulses palpable and symmetrical. Absent : calf tenderness, cyanotic, pedal edema - Neurological Exam Neurological exam: Present: CN II-XII intact, oriented X3, no focal deficits. Absent: pronater drift, facial droop, speech deficit - Skin Skin exam: Present: dry, intact
[2017-02-10] MEDS ORDERED: Insulin LISPRO 300 UNITS/3 ML VIAL SQ SCH (21:00)
--- NOTE | 2017-02-11 08:30 | Electrocardiograph Report ---
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
[2017-02-11] MEDS ORDERED: Diltiazem CD (24hr) 180 MG CAPSULE PO SCH (09:00)
--- NOTE | 2017-02-11 09:07 | Electrocardiograph Report ---
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
== END 2017-02-10 18:30 | disposition home or self-care (01) ==
LOC: EMEROO 19:57 → 3BNU 19:57
PROVIDERS: ADMIT Pediatrics; ATTEND Registered Nurse

== ENCOUNTER 2017-09-15 10:38 | Observation (INO) ==
--- NOTE | 2017-09-15 10:58 | Emergency Department Note ---
Disposition Clinical Impression: Symptomatic bradycardia, Prolonged QT interval Disposition: Admitted As Inpatient Condition: Fair General Adult HPI - General Chief complaint: ED Chest Pain Stated complaint: NATALI,Chest congestion Time Seen by Provider: 09/15/17 10:45 Source: patient, EMS Limitations: language barrier - History of Present Illness Pain Scale: 0 - Related Data Home Medications Medication Instructions Recorded Confirmed Atorvastatin [Lipitor] 40 mg PO HS 01/01/15 09/15/17 Canagliflozin [Invokana] 300 mg PO QAM 01/01/15 09/15/17 Esomeprazole Magnesium [Nexium] 40 mg PO HS 01/01/15 09/15/17 Isosorbide MONOnitrate (24 HR) 30 mg PO BID 01/01/15 09/15/17 [Imdur] Glimepiride [Amaryl] 4 mg PO HS 10/08/15 09/15/17 Carvedilol 12.5 mg PO BID 01/18/17 09/15/17 Fenofibrate Nanocrystallized 48 mg PO DAILY 01/18/17 09/15/17 [Tricor] Gabapentin [Neurontin] 600 mg PO TID 01/18/17 09/15/17 Sitagliptin Phosphate [Januvia] 50 mg PO DAILY 01/18/17 09/15/17 Amiodarone [Cordarone] 200 mg PO BID 09/15/17 09/15/17 Apixaban [Eliquis] 5 mg PO BID 09/15/17 09/15/17 Azithromycin [Azithromycin 6-Tab 250 mg PO PER PKG DI 09/15/17 09/15/17 Pack] Bumetanide [Bumex] 1 mg PO DAILY 09/15/17 09/15/17 Finasteride [Proscar] 5 mg PO HS 09/15/17 09/15/17 Potassium Chloride [Klor-Con 10] 10 meq PO HS 09/15/17 09/15/17 Previous Rx's Medication Instructions Recorded Clopidogrel [Plavix] 75 mg PO DAILY #30 tablet 01/22/16 Allergies Allergy/AdvReac Type Severity Reaction Status Date / Time bacitracin Allergy Intermediate Blister Verified 09/15/17 13:52 [From Neosporin ([id number])] Neomycin Allergy Intermediate Blister Verified 09/15/17 13:52 [From Neosporin ([id number])] polymyxin B Allergy Intermediate Blister Verified 09/15/17 13:52 [From Neosporin ([id number])] Past Medical History - Past Medical History Medical history: Reports: arthritis, atrial fibrillation, cancer, coronary artery disease, diabetes, GERD, hypertension, myocardial infarction Surgical history: Reports: angioplasty/stent, cataract, cholecystectomy, coronary bypass (CABG), other Psychiatric history: Reports: no psych history - Social History Smoking Status: Former smoker Smokeless Tobacco Status: No Alcohol use: Reports: none Drug use: Reports: none Physical Exam - General Limitations: language barrier General appearance: alert, in no apparent distress Course Vital Signs Temperature 97.9 F 09/15/17 10:40 Pulse Rate 90 09/15/17 10:40 Respiratory Rate 22 09/15/17 10:40 Blood Pressure 123/61 09/15/17 10:40 O2 Sat by Pulse Oximetry 95 09/15/17 10:40 Temperature 97.9 F 09/15/17 10:50 Pulse Rate 57 09/15/17 13:02 Respiratory Rate 20 09/15/17 13:02 Blood Pressure 136/68 09/15/17 13:02 O2 Sat by Pulse Oximetry 97 09/15/17 13:02 Oxygen Delivery Oxygen Delivery Room Air Medical Decision Making - Lab Data Result diagrams: 09/15/17 11:15 09/15/17 11:15 Lab Results 09/15/17 09/15/17 09/15/17 Range/Units 11:15 11:15 11:15 WBC 7.2 (4.3-11.1) K/mcL RBC 4.86 (4.19-5.50) M/mcL Hgb 12.7 L (12.9-16.9) g/dL Hct 38.0 (37.5-50.1) % MCV 78.2 L (83.0-100.0) fL MCH 26.1 L (28.0-33.3) pg MCHC 33.4 (31.6-35.5) g/dL RDW 17.1 H (11.5-14.5) % Plt Count 217 (140-400) K/mcL MPV 9.6 (9.4-12.4) fL Immature Gran % 0.7 (0-4) % Seg Neutrophils % 67.8 % Lymphocytes % 22.3 % Monocytes % 5.2 % Eosinophils % 3.2 % Basophils % 0.8 % Neutrophils # 4.9 (1.6-8.9) K/mcL Lymphocytes # 1.6 (0.6-4.6) K/mcL Monocytes # 0.4 (0.0-1.3) K/mcL Eosinophils # 0.2 (0.0-0.6) K/mcL Basophils # 0.1 (0.0-0.2) K/mcL PT 15.9 H (9.4-12.1) Seconds INR 1.5 APTT 34.8 (26.0-36.0) Seconds D-Dimer < 215 (0-500) ng/mLFEU Sodium (136-145) mEq/L Potassium (3.5-5.1) mEq/L Chloride (98-107) mEq/L Carbon Dioxide (23-29) mEq/L BUN (8-23) mg/dL Creatinine (0.70-1.30) mg/dL Est GFR ( Amer) (> 60) Est GFR (Non-Af Amer) (> 60) BUN/Creatinine Ratio (6-26) Glucose (70-105) mg/dL Calculated Osmolality (280-300) Calcium (8.6-10.3) mg/dL Magnesium (1.6-2.6) mg/dL Troponin I (< 0.04) ng/mL B-Natriuretic Peptide 160 H (Less than 100) pg/mL TSH (0.340-5.600) mcIU/mL 09/15/17 09/15/17 Range/Units 11:15 15:17 WBC (4.3-11.1) K/mcL RBC (4.19-5.50) M/mcL Hgb (12.9-16.9) g/dL Hct (37.5-50.1) % MCV (83.0-100.0) fL MCH (28.0-33.3) pg MCHC (31.6-35.5) g/dL RDW (11.5-14.5) % Plt Count (140-400) K/mcL MPV (9.4-12.4) fL Immature Gran % (0-4) % Seg Neutrophils % % Lymphocytes % % Monocytes % % Eosinophils % % Basophils % % Neutrophils # (1.6-8.9) K/mcL Lymphocytes # (0.6-4.6) K/mcL Monocytes # (0.0-1.3) K/mcL Eosinophils # (0.0-0.6) K/mcL Basophils # (0.0-0.2) K/mcL PT (9.4-12.1) Seconds INR APTT (26.0-36.0) Seconds D-Dimer (0-500) ng/mLFEU Sodium 135 L (136-145) mEq/L Potassium 4.0 (3.5-5.1) mEq/L Chloride 102 (98-107) mEq/L Carbon Dioxide 24 (23-29) mEq/L BUN 24 H (8-23) mg/dL Creatinine 1.33 H (0.70-1.30) mg/dL Est GFR ( Amer) > 60 (> 60) Est GFR (Non-Af Amer) 53 L (> 60) BUN/Creatinine Ratio 18 (6-26) Glucose 221 H (70-105) mg/dL Calculated Osmolality 291 (280-300) Calcium 8.9 (8.6-10.3) mg/dL Magnesium 2.3 (1.6-2.6) mg/dL Troponin I < 0.03 < 0.03 (< 0.04) ng/mL B-Natriuretic Peptide (Less than 100) pg/mL TSH 4.472 (0.340-5.600) mcIU/mL Attestation Statement - Attestation Attestation: I examined this patient and my medical decision-making was reviewed with the EDUCATIONAL THERAPIST/PA/Advanced Practice Nurse/Resident Physician. I agree with the documented findings, disposition and treatment plan as described except to the extent set forth below. I did see the patient and also spoke with his and reviewed the previous record and the patient does have a history of significant cardiac disease and presents today with shortness of breath and chest pain which began this morning at home around 7:30 and he has been treated with Zithromax for a productive cough for the last 4 days without improvement in symptoms. He denies any radiation to the back. He denies any pleuritic aspect of the chest pain. According to his and sounds like he does have a history of a pericardial effusion in the past. No pain or swelling of the lower extremities. EKG is been done at this time and additional test results including blood work and chest x-ray are pending. The patient will be watched closely on the media monitor and pulse oximeter. 1058 I did review the EKG showing sinus bradycardia with right bundle branch block and there are new inferior lateral T-wave inversions concerning for ischemia 1102 I did review the repeat EKG showing sinus bradycardia with a rate of 59 bpm as well as continued anterior ST depression. Patient will be admitted for further evaluation. 1322
--- NOTE | 2017-09-15 11:41 | Emergency Department Note ---
Disposition Clinical Impression: Symptomatic bradycardia, Prolonged QT interval Disposition: Admitted As Inpatient Condition: Fair Referrals: Aureliano Salamanca MD [Primary Care Provider] - Forms: ED Satisfaction Letter Time of Disposition: 13:17 Chest Pain HPI - General Chief Complaint: ED Chest Pain Stated Complaint: NATALI,Chest congestion Time Seen by Provider: 09/15/17 10:45 Source: patient, EMS Limitations: language barrier Vital Signs Reviewed: Yes Nursing Notes Reviewed: Yes - History of Present Illness HPI Narrative: Patient presents to the ED with the chief complaint of fatigue, cough and chest pain. Family reports that the patient has been having chest congestion for the last 2 weeks. Has had a mild non-productive cough. Was prescribed azithromycin last week and is on day 3 of this, but is not feeling any better. Denies any fever or chills. States that he just feels very weak and rundown. Is having some left-sided chest discomfort that is nonradiating, pleuritic, intermittent. Has a history of coronary artery disease, but states this is completely different. No history of DVT, PE or malignancy. States that he just does not feel well. No abdominal pain, nausea, vomiting, diarrhea or rash. Severity scale (1-10): 0 - Related Data Home Medications Medication Instructions Recorded Confirmed Atorvastatin [Lipitor] 40 mg PO HS 01/01/15 02/09/17 Canagliflozin [Invokana] 300 mg PO QAM 01/01/15 02/09/17 Esomeprazole Magnesium [Nexium] 40 mg PO QAM 01/01/15 02/09/17 Isosorbide MONOnitrate (24 HR) 30 mg PO BID 01/01/15 02/09/17 [Imdur] Glimepiride [Amaryl] 4 mg PO DAILY 10/08/15 02/09/17 Carvedilol 12.5 mg PO BID 01/18/17 02/09/17 Fenofibrate Nanocrystallized 48 mg PO DAILY 01/18/17 02/09/17 [Tricor] Gabapentin [Neurontin] 600 mg PO TID 01/18/17 02/09/17 Sitagliptin Phosphate [Januvia] 50 mg PO DAILY 01/18/17 02/09/17 Amiodarone [Cordarone] 200 mg PO BID 09/15/17 09/15/17 Apixaban [Eliquis] 5 mg PO BID 09/15/17 09/15/17 Bumetanide [Bumex] 1 mg PO DAILY 09/15/17 09/15/17 Finasteride [Proscar] 5 mg PO HS 09/15/17 09/15/17 Potassium Chloride [Klor-Con 10] 10 meq PO HS 09/15/17 09/15/17 Previous Rx's Medication Instructions Recorded Clopidogrel [Plavix] 75 mg PO DAILY #30 tablet 01/22/16 Aspirin 81 mg PO DAILY #30 01/20/17 Allergies Allergy/AdvReac Type Severity Reaction Status Date / Time bacitracin Allergy Intermediate Blister Verified 09/15/17 13:52 [From Neosporin ([id number])] Neomycin Allergy Intermediate Blister Verified 09/15/17 13:52 [From Neosporin ([id number]-pit-[id number])] polymyxin B Allergy Intermediate Blister Verified 09/15/17 13:52 [From Neosporin ([id number]-uoh-xzikw)] Review of Systems: As reviewed in the HPI. All other systems reviewed are negative or normal. Chest Pain PMH - Past Medical History Medical history: Reports: arthritis, atrial fibrillation, cancer, coronary artery disease, diabetes, GERD, hypertension, myocardial infarction Surgical history: Reports: angioplasty/stent, cataract, cholecystectomy, coronary bypass (CABG), other Psychiatric history: Reports: no psych history - Social History Smoking Status: Former smoker Alcohol use: Reports: none Drug use: Reports: none Physical Exam CONSTITUTIONAL: [well appearing in no acute distress] SKIN: [Warm, dry, and intact without rash] EYES: [extraocular movements are grossly intact, clear conjunctiva] HENT: [Normocephalic, atraumatic, moist mucus membranes] NECK: [no obvious swelling, normal range of motion] PULMONARY: [normal chest rise and fall, no respiratory distress or stridor, no wheezes or rales CARDIOVASCULAR: [Bradycardia, distal extremities are warm and well perfused] GASTROINSTESTINAL: [nondistended, non-tender] GENITOURINARY: [deferred] NEUROLOGIC: [normal speech, moves all extremities] MUSCULOSKELETAL: [no gross deformities, atraumatic] PSYCHIATRIC: [normal mood and affect] - General Limitations: language barrier General appearance: alert, in no apparent distress Course Course Narrative: Patient presenting with fatigue, cough, chest pain. Was treated with azithromycin and states he has felt worse since starting that. We will get cardiac workup and a chest x-ray to evaluate for pneumonia. Most concerning is his EKG does show prolonged QTC at 551. Being placed on azithromycin can prolonged QT interval and is now also bradycardic. We will place him on the pacing pads in case he does start to decline. His blood pressure is stable, but he does remain bradycardic. He overall looks well and does not seem to be symptomatic currently. - Reevaluation(s) Reevaluation #1: Patient's workup is back and we do not find any significant abnormalities and his lab work. However, he has had persistent bradycardia between the mid 30s and 60s. He is asymptomatic when he is above 60, but he states when his heart rate drops into the 30s or 40s. He has that feeling of weakness and shortness of breath. We do have him hooked up to the pacer pads. His blood pressure has remained normal. He has not been hypotensive. He does not get diaphoretic or altered with bradycardia. He states that he has seen a plastics fabricator in the past and they have told him he may end up needing a pacemaker at some point, so this was not necessarily new to them. He was just unaware his heart rate was at low. Patient admitted to the hospitalist service under Dr. Jorge. He did request that we speak with cardiology, so we have paged Dr. Feldman at [phone]. Reevaluation #2: Spoke with the on-call plastics fabricator, Dr. Feldman. He did recommend holding Cardizem and beta gavino until they can evaluate him. Patient may end up needing a pacemaker placed. Patient's blood pressure does remain stable. Patient admitted and stable for transfer to the floor. Vital Signs Temperature 97.9 F 09/15/17 10:40 Pulse Rate 90 09/15/17 10:40 Respiratory Rate 22 09/15/17 10:40 Blood Pressure 123/61 09/15/17 10:40 O2 Sat by Pulse Oximetry 95 09/15/17 10:40 Temperature 97.9 F 09/15/17 10:50 Pulse Rate 57 09/15/17 13:02 Respiratory Rate 20 09/15/17 13:02 Blood Pressure 136/68 09/15/17 13:02 O2 Sat by Pulse Oximetry 97 05/10/18 13:02 Oxygen Delivery Oxygen Delivery Room Air Chest Pain - Medical Records Medical records reviewed: Yes I reviewed the patient's medical records. - Lab Data Lab results reviewed: Yes I reviewed the patient's lab results. Result diagrams: 09/15/17 11:15 09/15/17 11:15 Lab Results 09/15/17 09/15/17 09/15/17 Range/Units 11:15 11:15 11:15 WBC 7.2 (4.3-11.1) K/mcL RBC 4.86 (4.19-5.50) M/mcL Hgb 12.7 L (12.9-16.9) g/dL Hct 38.0 (37.5-50.1) % MCV 78.2 L (83.0-100.0) fL MCH 26.1 L (28.0-33.3) pg MCHC 33.4 (31.6-35.5) g/dL RDW 17.1 H (11.5-14.5) % Plt Count 217 (140-400) K/mcL MPV 9.6 (9.4-12.4) fL Immature Gran % 0.7 (0-4) % Seg Neutrophils % 67.8 % Lymphocytes % 22.3 % Monocytes % 5.2 % Eosinophils % 3.2 % Basophils % 0.8 % Neutrophils # 4.9 (1.6-8.9) K/mcL Lymphocytes # 1.6 (0.6-4.6) K/mcL Monocytes # 0.4 (0.0-1.3) K/mcL Eosinophils # 0.2 (0.0-0.6) K/mcL Basophils # 0.1 (0.0-0.2) K/mcL PT 15.9 H (9.4-12.1) Seconds INR 1.5 APTT 34.8 (26.0-36.0) Seconds D-Dimer < 215 (0-500) ng/mLFEU Sodium (136-145) mEq/L Potassium (3.5-5.1) mEq/L Chloride (98-107) mEq/L Carbon Dioxide (23-29) mEq/L BUN (8-23) mg/dL Creatinine (0.70-1.30) mg/dL Est GFR ( Amer) (> 60) Est GFR (Non-Af Amer) (> 60) BUN/Creatinine Ratio (6-26) Glucose (70-105) mg/dL Calculated Osmolality (280-300) Calcium (8.6-10.3) mg/dL Magnesium (1.6-2.6) mg/dL Troponin I (< 0.04) ng/mL B-Natriuretic Peptide 160 H (Less than 100) pg/mL TSH (0.340-5.600) mcIU/mL 09/15/17 Range/Units 11:15 WBC (4.3-11.1) K/mcL RBC (4.19-5.50) M/mcL Hgb (12.9-16.9) g/dL Hct (37.5-50.1) % MCV (83.0-100.0) fL MCH (28.0-33.3) pg MCHC (31.6-35.5) g/dL RDW (11.5-14.5) % Plt Count (140-400) K/mcL MPV (9.4-12.4) fL Immature Gran % (0-4) % Seg Neutrophils % % Lymphocytes % % Monocytes % % Eosinophils % % Basophils % % Neutrophils # (1.6-8.9) K/mcL Lymphocytes # (0.6-4.6) K/mcL Monocytes # (0.0-1.3) K/mcL Eosinophils # (0.0-0.6) K/mcL Basophils # (0.0-0.2) K/mcL PT (9.4-12.1) Seconds INR APTT (26.0-36.0) Seconds D-Dimer (0-500) ng/mLFEU Sodium 135 L (136-145) mEq/L Potassium 4.0 (3.5-5.1) mEq/L Chloride 102 (98-107) mEq/L Carbon Dioxide 24 (23-29) mEq/L BUN 24 H (8-23) mg/dL Creatinine 1.33 H (0.70-1.30) mg/dL Est GFR ( Amer) > 60 (> 60) Est GFR (Non-Af Amer) 53 L (> 60) BUN/Creatinine Ratio 18 (6-26) Glucose 221 H (70-105) mg/dL Calculated Osmolality 291 (280-300) Calcium 8.9 (8.6-10.3) mg/dL Magnesium 2.3 (1.6-2.6) mg/dL Troponin I < 0.03 (< 0.04) ng/mL B-Natriuretic Peptide (Less than 100) pg/mL TSH 4.472 (0.340-5.600) mcIU/mL - Radiology Data Radiology results reviewed: Yes I reviewed the patient's radiology results. - EKG Data EKG attestation: Yes I reviewed and interpreted this EKG. EKG results narrative: Sinus bradycardia, rate 47, [place] interval 185, QRS 190, QTC 551, right axis deviation, right bundle branch block, similar morphology to previous, but the QTC is widened S.B.Zeke - Gonzalo.Lenny Situation: Demographics, MOA Background: Presenting Complaint, Relevant PMH, Meds, & Allergies Assessment: Vital Signs, Course and respsone to treatment, Exam Concerns, Patient/Family Expectation, Pertinant Lab Results, Outstanding Labs Recommendation: Recommendation based on pending studies, treatments, or consults S.B.A.RTyshawn Report Given to: Dr. Ania Hancock Repor Time: 13:18
[2017-09-15 12:28] LABS: Basophils # 0.1 K/mcL (0.0-0.2); Basophils % 0.8 %; Eosinophils # 0.2 K/mcL (0.0-0.6); Eosinophils % 3.2 %; Hemoglobin 12.7 g/dL (12.9-16.9); Immature Granulocytes % 0.7 % (0-4); Lymphocytes # 1.6 K/mcL (0.6-4.6); Lymphocytes % 22.3 %; Mean Corpuscular HGB Conc 33.4 g/dL (31.6-35.5); Mean Corpuscular Hemoglobin 26.1 pg (28.0-33.3); Mean Corpuscular Volume 78.2 fL (83.0-100.0); Mean Platelet Volume 9.6 fL (9.4-12.4); Monocytes # 0.4 K/mcL (0.0-1.3); Monocytes % 5.2 %; Neutrophils # 4.9 K/mcL (1.6-8.9); Platelet Count 217 K/mcL (140-400); Red Blood Count 4.86 M/mcL (4.19-5.50); Red Cell Distribution Width 17.1 % (11.5-14.5); Segmented Neutrophils % 67.8 %
[2017-09-15 12:31] LABS: Troponin I < 0.03 ng/mL (< 0.04)
[2017-09-15 12:39] LABS: BUN/Creatinine Ratio 18 (6-26); Blood Urea Nitrogen 24 mg/dL (8-23); Calcium 8.9 mg/dL (8.6-10.3); Carbon Dioxide 24 mEq/L (23-29); Chloride 102 mEq/L (98-107); Glucose 221 mg/dL (70-105); Magnesium 2.3 mg/dL (1.6-2.6); Osmolality,Calculated 291 (280-300); Sodium 135 mEq/L (136-145); eGFR For African Americans > 60 (> 60); eGFR For Non-African Americans 53 (> 60)
[2017-09-15 12:43] LABS: INR 1.5; Prothrombin Time 15.9 Seconds (9.4-12.1)
[2017-09-15 12:44] LABS: Thyroid Stimulating Hormone 4.472 mcIU/mL (0.340-5.600)
[2017-09-15 12:45] LABS: Activated Partial Thrombo Time 34.8 Seconds (26.0-36.0)
[2017-09-15 12:52] LABS: D-Dimer < 215 ng/mLFEU (0-500)
--- NOTE | 2017-09-15 13:38 | Electrocardiograph Report ---
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
[2017-09-15] MEDS ORDERED: Naloxone 0.4 MG/ML INJ IVP PRN (13:54)
[2017-09-15] MEDS ORDERED: Dextrose Gel 15 GM/37.5 ML TUBE PO PRN ×2 (14:00)
[2017-09-15] MEDS ORDERED: D5% in Water 1,000 ML IVC PRN (14:00)
[2017-09-15] MEDS ORDERED: *HR* Dextrose 50 % in Water (Syg) 50 ML SYRINGE IVP PRN (14:00)
--- NOTE | 2017-09-15 14:02 | Internal Med History&Physical ---
Date of Encounter: 09/15/17 Time of Encounter: 14:01 Internal Medicine - H&P: HPI Chief complaint: chest pain and dizziness Admitted From: Emergency Dept Plans for Post Hospital Care: Home History of present illness: Mr. Tiwari is a 72 year old male Past Med Surg Social Fam HX - Past Medical History Medical history: arthritis, atrial fibrillation, cancer, coronary artery disease , diabetes, GERD, hypertension, myocardial infarction Psychiatric history: no psych history - Past Surgical History Surgical History: angioplasty/stent, cataract, cholecystectomy, coronary bypass (CABG), other - Social History Smoking Status: Former smoker Smokeless Tobacco Status: No Alcohol use: none Drug use: none - Family History Father Adopted: No Family Member Ethnicity: Non- Living Status: Hx Family Cardiac Disorders: Yes (CAD) Hx Family Endocrine Disorder: Yes (Diabetes) Mother Living Status: Hx Family Endocrine Disorder: Yes (Diabetes) Internal Medicine - H&P: Meds Atorvastatin [Lipitor] 40 mg PO HS 01/01/15 [History] Canagliflozin [Invokana] 300 mg PO QAM 01/01/15 [History] Esomeprazole Magnesium [Nexium] 40 mg PO HS 01/01/15 [History] Isosorbide MONOnitrate (24 HR) [Imdur] 30 mg PO BID 01/01/15 [History] Glimepiride [Amaryl] 4 mg PO HS 10/08/15 [History] Clopidogrel [Plavix] 75 mg PO DAILY #30 tablet 01/22/16 [Rx] Carvedilol 12.5 mg PO BID 01/18/17 [History] Fenofibrate Nanocrystallized [Tricor] 48 mg PO DAILY 01/18/17 [History] Gabapentin [Neurontin] 600 mg PO TID 01/18/17 [History] Sitagliptin Phosphate [Januvia] 50 mg PO DAILY 01/18/17 [History] Amiodarone [Cordarone] 200 mg PO BID 09/15/17 [History] Apixaban [Eliquis] 5 mg PO BID 09/15/17 [History] Azithromycin [Azithromycin 6-Tab Pack] 250 mg PO PER PKG DI 09/15/17 [History] Bumetanide [Bumex] 1 mg PO DAILY 09/15/17 [History] Finasteride [Proscar] 5 mg PO HS 09/15/17 [History] Potassium Chloride [Klor-Con 10] 10 meq PO HS 09/15/17 [History] 3 Allergy/AdvReac Type Severity Reaction Status Date / Time bacitracin Allergy Intermediate Blister Verified 09/15/17 13:52 [From Neosporin ([id number]-knv-[id number])] Neomycin Allergy Intermediate Blister Verified 09/15/17 13:52 [From Neosporin (chz-rha-vncgy)] polymyxin B Allergy Intermediate Blister Verified 09/15/17 13:52 [From Neosporin (hiz-ogk-oepaf)] All Systems PM: A 10-system review of systems was performed and is negative for pertinent findings except as documented above in the HPI. - Constitutional Vitals: Temp Pulse Resp BP Pulse Ox 97.9 F 57 20 136/68 97 09/15/17 10:50 09/15/17 13:02 09/15/17 13:02 09/15/17 13:02 09/15/17 13:02 Internal Med - H&P Results - Labs CBC & Chem 7: 09/15/17 11:15 09/15/17 11:15 Labs: Short CBC 09/15/17 Range/Units 11:15 WBC 7.2 (4.3-11.1) K/mcL Hgb 12.7 L (12.9-16.9) g/dL Hct 38.0 (37.5-50.1) % Plt Count 217 (140-400) K/mcL Neutrophils # 4.9 (1.6-8.9) K/mcL BMP 09/15/17 11:15 Sodium 135 L Potassium 4.0 Chloride 102 Carbon Dioxide 24 BUN 24 H Creatinine 1.33 H Glucose 221 H Calcium 8.9 Cardiac Enzymes 09/15/17 Range/Units 11:15 Troponin I < 0.03 (< 0.04) ng/mL - Impressions ITS Impressions Chest X-Ray 09/15/17 12:04 IMPRESSION: 1. Stable mild enlargement of the cardiac silhouette. No superimposed acute pulmonary abnormality. D/ / Rufino Ba MD / Rufino Ba MD Interpreting Provider: Rufino Ba MD - Assessment and plan (1) Symptomatic bradycardia Current Visit: Yes Status: Acute Assessment and plan: Presented with dizziness and noted that patient's heart rate was less than 50. Patient is known to have A. fib and multiple daniel blockers. Plan: Admit as observation. Cardiology consult. Hold Cardizem/beta gavino. Await for washout. Temporary pacer pads on the patient and atropine at bedside I examined this patient in the emergency department room 25. Plan of care extent to the patient. Patient verbalized understanding (2) Chest pain Current Visit: No Status: Acute Assessment and plan: Patient is off and on chest pain. We will cycle troponin. We will closely monitor patient's EKG Qualifiers: Chest pain type: unspecified Qualified Code(s): R07.9 - Chest pain, unspecified (3) Coronary artery disease Current Visit: No Status: Chronic Assessment and plan: Known to have a coronary artery disease. Coronary artery bypass graft 3 in 1999 Patient had a heart catheter in 01/2017 Presently on Plavix/statin/Imdur Qualifiers: Coronary Disease-Associated Artery/Lesion type: [place] artery [place] vs. transplanted heart: [place] heart Associated angina: without angina Qualified Code(s): I25.10 - Atherosclerotic heart disease of [place] coronary artery without angina pectoris (4) Hypertension Current Visit: No Status: Chronic Assessment and plan: We will resume oral antihypertensive medication Qualifiers: Hypertension type: essential hypertension Qualified Code(s): I10 - Essential (primary) hypertension (5) Type 2 diabetes mellitus Current Visit: No Status: Chronic Assessment and plan: Type 2 diabetes mellitus We will start insulin which is a home dose. We will follow the recommendations from subcutaneous tenderness insulin order set Qualifiers: Diabetes mellitus senior living insulin use: with senior living use Diabetes mellitus complication status: with unspecified complications Qualified Code(s) : E11.8 - Type 2 diabetes mellitus with unspecified complications; Z79.4 - halfway (current) use of insulin (6) DVT prophylaxis Current Visit: No Status: Acute Assessment and plan: Eliquis Prolonged QT likely secondary to azithromycin. Medical decision making: This patient is a moderate to severe risk of worsening in spite of being on appropriate medication due to the underlying complex comorbid conditions - Time Spent With Patient Total time spent is greater than 50% in coordination of care (as documented) at patient's floor/unit and/or counseling patient:
--- NOTE | 2017-09-15 15:12 | Cardiology Consult Note ---
Date of Encounter: 09/15/17 Time of Encounter: 15:08 Assessment and Plan (1) Symptomatic bradycardia Current Visit: Yes Status: Acute Presented with symptomatic bradycardia--chest pressure and dyspnea when HR is 46 or below, per pt. Occasional dizziness on standing, denies syncope. On Coreg 12.5mg BID at home, last dose this AM. Hold AV daniel blockers, allow washout. At bedside, lowest HR I saw was 59 and pt is currently asymptomatic. Reports jaw skinner in [place] mentioned he may need a PPM at some point. Follows with Dr. Dominguez when in [place], no mention of PPM in his prior notes. K, Mag and TSH within normal range. TTE 02/2017 EF 45-50%. Recheck TTE. Allow BB washout and continue to monitor. No urgent need for PPM at this time. (2) Coronary artery disease Current Visit: No Status: Chronic Known CAD with previous stenting and CABG 3 in 1999. LHC 01/2017 in setting of non-STEMI showed patent CHATMAN to mid LAD, patent SVG to OM1, patent SVG to right PDA, SVG to diagonal 1 with 80-90% lesion status post PTCA and bare-metal stent placement. Continue Plavix, Statin, Imdur. No BB due to bradycardia. Is not on ASA since he is also on Eliquis for PAF. Qualifiers: Coronary Disease-Associated Artery/Lesion type: [place] artery [place] vs. transplanted heart: [place] heart Associated angina: without angina Qualified Code(s): I25.10 - Atherosclerotic heart disease of [place] coronary artery without angina pectoris (3) PAF (paroxysmal atrial fibrillation) Current Visit: No Status: Chronic Known hx of PAF and prior ablation in 2009. Recurrent episode of A. fib with RVR requiring DCCV in 2017. Currently sinus bradycardia. Stop BB. Continue to monitor HR. Anticoagulated on Eliquis. Will discuss with Dr. Feldman on whether or not to hold in the event a procedure is needed. (4) Prolonged QT interval Current Visit: Yes Status: Acute Recently started on Azithromycin for possible sinus infection. QTc currently 553ms. Stop Azithromycin and hold any other QT prolonging medications. Baseline QTc 02/10/17 494ms. Continue to monitor closely. Discussion w patient/family: The assessment and plan as outlined above was discussed with the patient and/or family members who expressed understanding and agreement. All questions were answered. Thank you for involving us in the care of your patient. Please call with any questions. I will discuss all the above with Dr. Feldman and make changes as necessary. History of Present Illness Consult date: 09/15/17 Requesting physician: Demarcus Bear Consult reason: symptomatic bradycardia Chief complaint: chest pain, dyspnea History of present illness: Mr. Tiwari is a 72 year old male with PMH of CAD, prior 4 vessel CABG, PCI, HTN , HLD, AF (prior AF ablation at [facility], 2009) on Eliquis, RBBB , and DM type II. He also spends time in [place] and follows with a jaw skinner there. Pt reports he began experiencing chest pressure and dyspnea this morning, intermittent, prompting ED evaluation. He was found to be bradycardic on presentation, HR as low as 30s. He has been watching the monitor and states he starts having chest pressure and dyspnea when HR is 46 or lower. HR at bedside is upper 50s-low 60s and pt is asymptomatic currently. Pt states his jaw skinner in [place] mentioned he may need a pacemaker at some point, but that has never been mentioned in [facility] records. He reports being on Coreg 12.5mg BID at home, last dose was this morning. QTc also found to be prolonged, 553ms. He was recently started on Azithromycin for URI, last dose yesterday evening. Pt denies exertional chest pain, denies LE edema. He reports occasional dizziness, only when standing too fast. Previous studies: TTE 01/20/2017: LVEF 45-50%. Mild to moderate dilated LV. Moderate diastolic dysfunction. Normal RV size and function. Moderate LA enlargement. Mild MR. Small to moderate pericardial effusion adjacent to RA. No tamponade. Limited TTE 02/09/2017: LVEF 40-45%. Probable small to moderate pericardial effusion adjacent to the right atrium is not well visualized. Suboptimal image quality. [facility] 01/19/2017: LM patent stents, nl. LAD ostial 100% stenosis. D1 100% stenosis. Cx ostial 100% stenosis. RCA mid 100% stenosis. CHATMAN-mLAD patent. SVG-OM1 patent. SVG-rPDA patent. SVG-D1 90-99% stenosis (BMS x1 placed). Past Med Surg Social Fam HX - Past Medical History Medical history: arthritis, atrial fibrillation, cancer, coronary artery disease , diabetes, GERD, hypertension, myocardial infarction Psychiatric history: no psych history - Past Surgical History Surgical History: angioplasty/stent, cataract, cholecystectomy, coronary bypass (CABG), other - Social History Smoking Status: Former smoker Smokeless Tobacco Status: No Alcohol use: none Drug use: none - Family History Father Adopted: No Family Member Ethnicity: Non- Living Status: Hx Family Cardiac Disorders: Yes (CAD) Hx Family Endocrine Disorder: Yes (Diabetes) Mother Living Status: Hx Family Endocrine Disorder: Yes (Diabetes) Medications and Allergies Atorvastatin [Lipitor] 40 mg PO HS 01/01/15 [History] Canagliflozin [Invokana] 300 mg PO QAM 01/01/15 [History] Esomeprazole Magnesium [Nexium] 40 mg PO HS 01/01/15 [History] Isosorbide MONOnitrate (24 HR) [Imdur] 30 mg PO BID 01/01/15 [History] Glimepiride [Amaryl] 4 mg PO HS 10/08/15 [History] Clopidogrel [Plavix] 75 mg PO DAILY #30 tablet 01/22/16 [Rx] Carvedilol 12.5 mg PO BID 01/18/17 [History] Fenofibrate Nanocrystallized [Tricor] 48 mg PO DAILY 01/18/17 [History] Gabapentin [Neurontin] 600 mg PO TID 01/18/17 [History] Sitagliptin Phosphate [Januvia] 50 mg PO DAILY 01/18/17 [History] Amiodarone [Cordarone] 200 mg PO BID 09/15/17 [History] Apixaban [Eliquis] 5 mg PO BID 09/15/17 [History] Azithromycin [Azithromycin 6-Tab Pack] 250 mg PO PER PKG DI 09/15/17 [History] Bumetanide [Bumex] 1 mg PO DAILY 09/15/17 [History] Finasteride [Proscar] 5 mg PO HS 09/15/17 [History] Potassium Chloride [Klor-Con 10] 10 meq PO HS 09/15/17 [History] 3 Allergy/AdvReac Type Severity Reaction Status Date / Time bacitracin Allergy Intermediate Blister Verified 09/15/17 13:52 [From Neosporin ([id number])] Neomycin Allergy Intermediate Blister Verified 09/15/17 13:52 [From Neosporin ([id number])] polymyxin B Allergy Intermediate Blister Verified 09/15/17 13:52 [From Neosporin ([id number])] All Systems Review: The remainder of the systems were reviewed and are negative - Cardiovascular Cardiovascular: as per HPI, chest pain at rest, dyspnea at rest, dyspnea on exertion - Respiratory Respiratory: dyspnea Physical Examination Vital Signs, Last 4 Hours Pulse Resp BP Pulse Ox 09/15/17 13:02 57 20 136/68 97 09/15/17 11:55 48 20 113/56 98 Vital Signs Temp Pulse Resp BP Pulse Ox 09/15/17 13:02 57 20 136/68 97 09/15/17 11:55 48 20 113/56 98 09/15/17 10:56 46 18 129/65 96 09/15/17 10:50 97.9 F 90 22 123/61 95 09/15/17 10:40 97.9 F 90 22 123/61 95 Intake and Output 09/14/17 09/15/17 09/15/17 23:59 07:59 15:59 Other: Weight 116.12 kg Patient Weight 09/15/17 23:59 Weight 116.12 kg General: Conversant, No Apparent Distress HEENT: Atraumatic, Normocephaly, Mucus Membranes Moist Neck: No JVD, Normal carotid pulses Cardiac: Reg Rate and Rhythm, Normal S1 and S2, No Murmur Lungs: Normal Breath Sounds, No Wheeze, Rales, Rhonchi Neuro: Alert and responsive, No focal deficits noted Abdomen: Soft, Non-Tender Skin: No rashes noted on visualized skin Musculoskeletal: No Chest Wall Tenderness Extremities: No Clubbing, No Cyanosis, No Edema, Normal Pulses Results 09/15/17 11:15 09/15/17 11:15 Lab Results 09/15/17 09/15/17 09/15/17 11:15 11:15 11:15 WBC 7.2 Hgb 12.7 L Hct 38.0 Plt Count 217 INR 1.5 APTT 34.8 D-Dimer < 215 Sodium Potassium Chloride Carbon Dioxide BUN Creatinine Glucose Calcium Magnesium Troponin I B-Natriuretic Peptide 160 H TSH 09/15/17 11:15 WBC Hgb Hct Plt Count INR APTT D-Dimer Sodium 135 L Potassium 4.0 Chloride 102 Carbon Dioxide 24 BUN 24 H Creatinine 1.33 H Glucose 221 H Calcium 8.9 Magnesium 2.3 Troponin I < 0.03 B-Natriuretic Peptide TSH 4.472 Short CBC 09/15/17 Range/Units 11:15 WBC 7.2 (4.3-11.1) K/mcL Hgb 12.7 L (12.9-16.9) g/dL Hct 38.0 (37.5-50.1) % Plt Count 217 (140-400) K/mcL Neutrophils # 4.9 (1.6-8.9) K/mcL BMP 09/15/17 Range/Units 11:15 Sodium 135 L (136-145) mEq/L Potassium 4.0 (3.5-5.1) mEq/L Chloride 102 (98-107) mEq/L Carbon Dioxide 24 (23-29) mEq/L BUN 24 H (8-23) mg/dL Creatinine 1.33 H (0.70-1.30) mg/dL Glucose 221 H (70-105) mg/dL Calcium 8.9 (8.6-10.3) mg/dL Cardiac Enzymes 09/15/17 Range/Units 11:15 Troponin I < 0.03 (< 0.04) ng/mL Impressions Chest X-Ray 09/15/17 12:04 IMPRESSION: 1. Stable mild enlargement of the cardiac silhouette. No superimposed acute pulmonary abnormality. D/ / Rufino Ba MD / Rufino Ba MD Interpreting Provider: Rufino Ba MD Active Medications Apixaban (Eliquis) 5 mg PO BID [facility] Stop: 03/17/18 21:01 Aspirin (Aspirin) 81 mg PO DAILY [facility] Stop: 03/18/18 09:01 Atorvastatin Calcium (Lipitor) 40 mg PO HS [facility] Stop: 03/17/18 21:01 Bumetanide (Bumex) 1 mg PO DAILY [facility] Stop: 03/18/18 09:01 Clopidogrel Bisulfate (Plavix) 75 mg PO DAILY [facility] Stop: 03/18/18 09:01 Dextrose/Water (Dextrose 50% (Syg)) 25 ml IVP AD PRN PRN Reason: Hypoglycemia Stop: 03/17/18 14:01 Fenofibrate (Tricor) 54 mg PO DAILY [facility] Stop: 03/18/18 09:01 Finasteride (Proscar) 5 mg PO HS [facility] PRN Reason: Protocol Stop: 03/17/18 21:01 Glimepiride (Amaryl) 4 mg PO DAILY [facility] Stop: 03/18/18 09:01 Glucagon (Glucagen) 1 mg IM ONCE PRN PRN Reason: Hypoglycemia Stop: 03/17/18 14:01 Glucose (Gluctose) 15 gm PO ONCE PRN PRN Reason: Hypoglycemia Stop: 03/17/18 14:01 Glucose (Gluctose) 30 gm PO ONCE PRN PRN Reason: Hypoglycemia Stop: 03/17/18 14:01 Dextrose (Dextrose 5%) 1,000 mls @ 100 mls/hr IVC .Q10H PRN PRN Reason: HYPOGLYCEMIA Stop: 03/17/18 14:01 Insulin Human Lispro (Humalog) 0 units SQ TIDAC [facility] PRN Reason: Protocol Stop: 03/17/18 16:31 Isosorbide Mononitrate (Imdur) 30 mg PO BID [facility] Stop: 03/17/18 21:01 Naloxone HCl (Narcan) 0.4 mg IVP Q2MIN PRN PRN Reason: SEE COMMENTS Stop: 03/17/18 13:55 Omeprazole (Prilosec) 20 mg PO QAM [facility] Stop: 03/18/18 09:01 Pharmacy Profile Note (Patient Taking Own Medication) 0 each PO QAM [facility] Stop: 03/18/18 09:01 Potassium Chloride (Potassium Chloride) 10 meq PO HS [facility] Stop: 03/17/18 21:01 Sitagliptin Phosphate (Januvia) 50 mg PO DAILY [facility] Stop: 03/18/18 09:01 - Imaging and Cardiology Echo: report reviewed Cardiac cath: report reviewed - EKG Interpretation EKG results cardiology: personally reviewed (Sinus rambo, HR 47, QTc 551ms. Sinus rambo, HR 59, QTc 553ms.) Consult Discharge Plan - Plan Referrals: Aureliano Salamanca MD [Primary Care Provider] -
[2017-09-15] MEDS: Insulin LISPRO 300 UNITS/3 ML VIAL SQ SCH (18:48)
[2017-09-15] MEDS ORDERED: *HR* Atropine Sulfate 1 MG/10 ML SYRINGE ONE (19:12)
[2017-09-15] MEDS: Finasteride 5 MG TABLET PO SCH (22:11)
[2017-09-15] MEDS: Isosorbide MONOnitrate (24 HR) 30 MG TAB.ER.24H PO SCH (22:12)
[2017-09-15] MEDS: Apixaban 5 MG TABLET PO SCH (22:12)
[2017-09-16 01:58] LABS: Basophils % 0.6 %; Eosinophils # 0.4 K/mcL (0.0-0.6); Eosinophils % 5.8 %; Hematocrit 37.3 % (37.5-50.1); Hemoglobin 12.6 g/dL (12.9-16.9); Immature Granulocytes % 0.8 % (0-4); Lymphocytes # 1.8 K/mcL (0.6-4.6); Lymphocytes % 28.8 %; Mean Corpuscular HGB Conc 33.8 g/dL (31.6-35.5); Mean Corpuscular Volume 76.9 fL (83.0-100.0); Monocytes # 0.4 K/mcL (0.0-1.3); Monocytes % 6.6 %; Neutrophils # 3.5 K/mcL (1.6-8.9); Platelet Count 171 K/mcL (140-400); Red Blood Count 4.85 M/mcL (4.19-5.50); Red Cell Distribution Width 16.7 % (11.5-14.5); Segmented Neutrophils % 57.4 %
[2017-09-16 02:13] LABS: Alanine Aminotransferase 28 Units/L (7-52); Albumin 3.9 g/dL (3.5-5.7); Albumin/Globulin Ratio 1.6 (1.1-2.2); Alkaline Phosphatase 50 Units/L (34-104); Aspartate Amino Transferase 21 Units/L (13-39); BUN/Creatinine Ratio 18 (6-26); Bilirubin,Total 0.7 mg/dL (0.3-1.0); Blood Urea Nitrogen 23 mg/dL (8-23); Carbon Dioxide 27 mEq/L (23-29); Chloride 102 mEq/L (98-107); Chol/HDL Ratio 4.3 (0-4.9); Cholesterol 128 mg/dL (< 200); Globulin 2.4 g/dL (2.4-3.5); Glucose 158 mg/dL (70-105); HDL Cholesterol 30 mg/dL (40-59); LDL Cholesterol,Calculated 59 mg/dL (0-99); Magnesium 2.2 mg/dL (1.6-2.6); Osmolality,Calculated 287 (280-300); Phosphorous 3.5 mg/dL (2.7-4.5); Potassium 3.7 mEq/L (3.5-5.1); Sodium 135 mEq/L (136-145); Total Protein 6.3 g/dL (6.4-8.9); Triglycerides 195 mg/dL (< 150); eGFR For African Americans > 60 (> 60); eGFR For Non-African Americans 56 (> 60)
[2017-09-16 02:52] LABS: INR 1.4; Prothrombin Time 15.4 Seconds (9.4-12.1)
[2017-09-16 02:54] LABS: Activated Partial Thrombo Time 34.2 Seconds (26.0-36.0)
[2017-09-16] MEDS: Insulin LISPRO 300 UNITS/3 ML VIAL SQ SCH ×3 (07:27→16:43)
[2017-09-16] MEDS: Fenofibrate 54 MG TABLET PO SCH (07:44)
[2017-09-16] MEDS: Bumetanide 1 MG TABLET PO SCH (07:44)
[2017-09-16] MEDS: *HR* SitaGLIPtin 25 MG TABLET PO SCH (07:44)
[2017-09-16] MEDS: *HR* Glimepiride 4 MG TABLET PO SCH (07:44)
[2017-09-16] MEDS: Isosorbide MONOnitrate (24 HR) 30 MG TAB.ER.24H PO SCH ×2 (07:44→20:06)
[2017-09-16] MEDS: Apixaban 5 MG TABLET PO SCH (07:44)
[2017-09-16] MEDS ORDERED: Perflutren Lipid Microsphere 1.3 ML in 0.9 % Sodium Chloride 8.7 ML IVP ONE (08:34)
[2017-09-16] MEDS ORDERED: Aspirin 81 MG TAB.CHEW PO SCH (09:00)
[2017-09-16] MEDS ORDERED: (Canagliflozin [Invokana] 300 MG) PO SCH (09:00)
--- NOTE | 2017-09-16 10:08 | Cardiology Progress Note ---
Date of Encounter: 09/16/17 Time of Encounter: 10:02 Assessment and Plan (1) Symptomatic bradycardia Current Visit: Yes Status: Acute Presented with symptomatic bradycardia--chest pressure and dyspnea when HR mid 40s or below, per pt. Occasional dizziness on standing, denies syncope. On Coreg 12.5mg BID at home, last dose 09/15/17 AM. Hold AV daniel blockers, allow washout. At bedside HR 70s and pt is currently asymptomatic. 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 Follows with Dr. Dominguez when in [place], no mention of PPM in his prior notes. K, Mag and TSH within normal range. TTE 02/2017 EF 45-50%. Recheck TTE, pending. Allow BB washout and continue to monitor. No urgent need for PPM at this time. Recommend keeping at least another 24 hours for monitoring of HR. (2) Coronary artery disease Current Visit: No Status: Chronic Known CAD with previous stenting and CABG 3 in 1999. LHC 01/2017 in setting of non-STEMI showed patent CHATMAN to mid LAD, patent SVG to OM1, patent SVG to right PDA, SVG to diagonal 1 with 80-90% lesion status post PTCA and bare-metal stent placement. Continue Plavix, Statin, Imdur. No BB due to bradycardia. Is not on ASA since he is also on Eliquis for PAF. Qualifiers: Coronary Disease-Associated Artery/Lesion type: [place] artery [place] vs. transplanted heart: [place] heart Associated angina: without angina Qualified Code(s): I25.10 - Atherosclerotic heart disease of [place] coronary artery without angina pectoris (3) PAF (paroxysmal atrial fibrillation) Current Visit: No Status: Chronic Known hx of PAF and prior ablation in 2009. Recurrent episode of A. fib with RVR requiring DCCV in 2017. Currently sinus rhythm, stopped BB due to bradycardia. Continue to monitor HR. Anticoagulated on Eliquis. Will recommend outpt follow-up with Dr. Pavan Garcia given his PAF hx and bradycardia. (4) Prolonged QT interval Current Visit: Yes Status: Acute Recently started on Azithromycin for possible sinus infection. QTc currently 553ms 09/15/17. Stop Azithromycin and hold any other QT prolonging medications. Baseline QTc 02/10/17 494ms. Continue to monitor closely. Recheck EKG today. Will follow-up on repeat EKG. Discussion w patient/family: The assessment and plan as outlined above was discussed with the patient and/or family members who expressed understanding and agreement. All questions were answered. Thank you for involving us in the care of your patient. Please call with any questions. I will discuss all the above with Dr. Feldman and make changes as necessary. Subjective Principal diagnosis: Symptomatic bradycardia Interval history: Pt reports feeling much better today, still occasional dyspnea and chest pressure overnight. 12 hr tele AVG HR 65, lowest HR noted 55bpm, SR. Echo pending. Troponins negative x 4. Objective Vital Signs, Last 4 Hours Temp Pulse Resp BP Pulse Ox 09/16/17 06:38 98.1 F 70 16 145/77 93 Vital Signs Temp Pulse Resp BP Pulse Ox 09/16/17 06:38 98.1 F 70 16 145/77 93 09/16/17 03:44 98 F 64 16 128/75 98 09/16/17 00:03 62 09/15/17 23:26 98.3 F 72 17 156/78 97 09/15/17 19:59 97.3 F L 64 19 159/83 95 09/15/17 17:35 97.8 F 67 19 152/82 97 09/15/17 16:58 18 158/72 09/15/17 13:02 57 20 136/68 97 09/15/17 11:55 48 20 113/56 98 09/15/17 10:56 46 18 129/65 96 09/15/17 10:50 97.9 F 90 22 123/61 95 09/15/17 10:40 97.9 F 90 22 123/61 95 Intake and Output 09/15/17 09/16/17 09/16/17 23:59 07:59 15:59 Output Total 1225 / 1225 450 / 450 250 / 250 Balance -1225 / -1225 -450 / -450 -250 / -250 Output: Urine 1225 / 1225 450 / 450 250 / 250 Other: Meal NPO Percent of Meal Consumed 0% Weight 114.8 kg Blood Glucose* 154 130 Patient Weight 09/16/17 23:59 Weight 114.8 kg General: Conversant, No Apparent Distress HEENT: Atraumatic, Normocephaly, Mucus Membranes Moist Neck: No JVD, Normal carotid pulses Cardiac: Reg Rate and Rhythm, Normal S1 and S2, No Murmur Lungs: Normal Breath Sounds, No Wheeze, Rales, Rhonchi Neuro: Alert and responsive, No focal deficits noted Abdomen: Soft, Non-Tender Skin: No rashes noted on visualized skin Musculoskeletal: No Chest Wall Tenderness Extremities: No Clubbing, No Cyanosis, No Edema, Normal Pulses Results 09/16/17 01:40 09/16/17 01:40 Lab Results 09/15/17 09/16/17 09/16/17 21:32 01:40 01:40 WBC 6.2 Hgb 12.6 L Hct 37.3 L Plt Count 171 INR APTT Sodium Potassium Chloride Carbon Dioxide BUN Creatinine Glucose Calcium Magnesium Total Bilirubin AST ALT Alkaline Phosphatase Troponin I < 0.03 < 0.03 B-Natriuretic Peptide 09/16/17 09/16/17 09/16/17 01:40 01:40 01:40 WBC Hgb Hct Plt Count INR 1.4 APTT 34.2 Sodium 135 L Potassium 3.7 Chloride 102 Carbon Dioxide 27 BUN 23 Creatinine 1.27 Glucose 158 H Calcium 9.0 Magnesium 2.2 Total Bilirubin 0.7 AST 21 ALT 28 Alkaline Phosphatase 50 Troponin I B-Natriuretic Peptide 114 H Short CBC 09/16/17 09/15/17 Range/Units 01:40 11:15 WBC 6.2 7.2 (4.3-11.1) K/mcL Hgb 12.6 L 12.7 L (12.9-16.9) g/dL Hct 37.3 L 38.0 (37.5-50.1) % Plt Count 171 217 (140-400) K/mcL Neutrophils # 3.5 4.9 (1.6-8.9) K/mcL BMP 09/16/17 09/15/17 Range/Units 01:40 11:15 Sodium 135 L 135 L (136-145) mEq/L Potassium 3.7 4.0 (3.5-5.1) mEq/L Chloride 102 102 (98-107) mEq/L Carbon Dioxide 27 24 (23-29) mEq/L BUN 23 24 H (8-23) mg/dL Creatinine 1.27 1.33 H (0.70-1.30) mg/dL Glucose 158 H 221 H (70-105) mg/dL Calcium 9.0 8.9 (8.6-10.3) mg/dL Cardiac Enzymes 09/16/17 09/15/17 09/15/17 Range/Units 01:40 21:32 15:17 Troponin I < 0.03 < 0.03 < 0.03 (< 0.04) ng/mL 09/15/17 Range/Units 11:15 Troponin I < 0.03 (< 0.04) ng/mL Liver Function 09/16/17 Range/Units 01:40 Total Bilirubin 0.7 (0.3-1.0) mg/dL AST 21 (13-39) Units/L ALT 28 (7-52) Units/L Alkaline Phosphatase 50 (34-104) Units/L Albumin 3.9 (3.5-5.7) g/dL Impressions Chest X-Ray 09/15/17 12:04 IMPRESSION: 1. Stable mild enlargement of the cardiac silhouette. No superimposed acute pulmonary abnormality. D/ / Rufino Ba MD / Rufino Ba MD Interpreting Provider: Rufino Ba MD Active Medications Apixaban (Eliquis) 5 mg PO BID [facility] Stop: 03/17/18 21:01 Last Admin: 09/16/17 07:44 Dose: 5 mg Atorvastatin Calcium (Lipitor) 40 mg PO HS [facility] Stop: 03/17/18 21:01 Last Admin: 09/15/17 22:12 Dose: 40 mg Bumetanide (Bumex) 1 mg PO DAILY [facility] Stop: 03/18/18 09:01 Last Admin: 09/16/17 07:44 Dose: 1 mg Clopidogrel Bisulfate (Plavix) 75 mg PO DAILY [facility] Stop: 03/18/18 09:01 Last Admin: 09/16/17 07:44 Dose: 75 mg Dextrose/Water (Dextrose 50% (Syg)) 25 ml IVP AD PRN PRN Reason: Hypoglycemia Stop: 03/17/18 14:01 Fenofibrate (Tricor) 54 mg PO DAILY [facility] Stop: 03/18/18 09:01 Last Admin: 09/16/17 07:44 Dose: 54 mg Finasteride (Proscar) 5 mg PO HS [facility] PRN Reason: Protocol Stop: 03/17/18 21:01 Last Admin: 09/15/17 22:11 Dose: 5 mg Glimepiride (Amaryl) 4 mg PO DAILY [facility] Stop: 03/18/18 09:01 Last Admin: 09/16/17 07:44 Dose: 4 mg Glucagon (Glucagen) 1 mg IM ONCE PRN PRN Reason: Hypoglycemia Stop: 03/17/18 14:01 Glucose (Gluctose) 15 gm PO ONCE PRN PRN Reason: Hypoglycemia Stop: 03/17/18 14:01 Glucose (Gluctose) 30 gm PO ONCE PRN PRN Reason: Hypoglycemia Stop: 03/17/18 14:01 Dextrose (Dextrose 5%) 1,000 mls @ 100 mls/hr IVC .Q10H PRN PRN Reason: HYPOGLYCEMIA Stop: 03/17/18 14:01 Insulin Human Lispro (Humalog) 0 units SQ TIDAC [facility] PRN Reason: Protocol Stop: 03/17/18 16:31 Last Admin: 09/16/17 07:27 Dose: Not Given Isosorbide Mononitrate (Imdur) 30 mg PO BID [facility] Stop: 03/17/18 21:01 Last Admin: 09/16/17 07:44 Dose: 30 mg Naloxone HCl (Narcan) 0.4 mg IVP Q2MIN PRN PRN Reason: SEE COMMENTS Stop: 03/17/18 13:55 Omeprazole (Prilosec) 20 mg PO QAM [facility] Stop: 03/18/18 09:01 Last Admin: 09/16/17 07:44 Dose: Not Given Pharmacy Profile Note (Patient Taking Own Medication) 1 each PO HS [facility] Stop: 03/18/18 21:01 Potassium Chloride (Potassium Chloride) 10 meq PO HS [facility] Stop: 03/17/18 21:01 Last Admin: 09/15/17 22:11 Dose: 10 meq Sitagliptin Phosphate (Januvia) 50 mg PO DAILY [facility] Stop: 03/18/18 09:01 Last Admin: 09/16/17 07:44 Dose: 50 mg - Imaging and Cardiology Echo: pending - EKG Interpretation EKG results cardiology: other (12 hr tele AVG HR 65, SR, lowest HR 55) Consult Discharge Plan - Plan Referrals: Aureliano Salamanca MD [Primary Care Provider] -
--- NOTE | 2017-09-16 13:33 | Internal Med Progress Note ---
Date of Encounter: 09/16/17 Time of Encounter: 13:30 - Assessment and plan (1) Symptomatic bradycardia Current Visit: Yes Status: Acute Assessment and plan: Symptomatic bradycardia likely secondary to carvedilol next The patient mentions that he has been taking amiodarone 200 mg twice a day since the winter Presented with dizziness and noted that patient's heart rate was less than 50. Carvedilol is on hold, cardiology recommending to start Cardizem, further recommendations appreciated Takes Eliquis Stopped taking azithromycin due to prolonged QT (2) Coronary artery disease Current Visit: No Status: Chronic Assessment and plan: coronary artery disease. CABG 3 in 1999 Patient had a heart catheter in 01/2017 Presently on Plavix/statin/Imdur Qualifiers: Coronary Disease-Associated Artery/Lesion type: [place] artery [place] vs. transplanted heart: [place] heart Associated angina: without angina Qualified Code(s): I25.10 - Atherosclerotic heart disease of [place] coronary artery without angina pectoris (3) Hypertension Current Visit: No Status: Chronic Assessment and plan: Stable Qualifiers: Hypertension type: essential hypertension Qualified Code(s): I10 - Essential (primary) hypertension (4) Chest pain Current Visit: No Status: Acute Assessment and plan: Patient is off and on chest pain. Possibly related to abdominal hernia Qualifiers: Chest pain type: unspecified Qualified Code(s): R07.9 - Chest pain, unspecified (5) Type 2 diabetes mellitus Current Visit: No Status: Chronic Assessment and plan: Insulin Sliding scale Qualifiers: Diabetes mellitus termite treater helper insulin use: with prison use Diabetes mellitus complication status: with unspecified complications Qualified Code(s) : E11.8 - Type 2 diabetes mellitus with unspecified complications; Z79.4 - [facility] (current) use of insulin - Time Spent With Patient Total time spent is greater than 50% in coordination of care (as documented) at patient's floor/unit and/or counseling patient: - Subjective Interval history: Denies any dizziness, note chest pain at the moment no abdominal pain, no dysuria, no diarrhea no fevers, mild cough - Constitutional Vitals: Temp Pulse Resp BP Pulse Ox 98.8 F 76 16 120/78 96 09/16/17 11:16 09/16/17 11:16 09/16/17 11:16 09/16/17 11:16 05/11/18 11:16 General appearance: Present: A&O X 3 - Head Head exam: Present: atraumatic, normocephalic - Eye Eye exam: Present: PERRL, conjuntiva pink, sclera anicteric Pupils: Present: PERRL - Neck Neck exam general surgery: Present: supple, trachea midline. Absent: lymphadenopathy - Respiratory Respiratory exam: Present: CTAB. Absent: accessory muscle use, rales, rhonchi, wheezes Additional comments: Abdominal hernia not incarcerated - Cardiovascular Cardiovascular exam: Present: RRR, +S1, +S2. Absent: diastolic murmur, gallop, rubs, systolic murmur - GI/Abdominal GI/Abdominal exam: Present: normal bowel sounds, soft, no peritoneal signs. Absent: distended, tenderness - Extremities Exam Extremities exam: Present: warm, radial pulses palpable and symmetrical. Absent : calf tenderness, cyanotic, pedal edema - Neurological Exam Neurological exam: Present: CN II-XII intact, oriented X3, no focal deficits. Absent: pronater drift, facial droop, speech deficit - Skin Skin exam: Present: dry, intact Internal Medicine: Result - Labs CBC & Chem 7: 09/16/17 01:40 09/16/17 01:40 Labs: Short CBC 09/16/17 Range/Units 01:40 WBC 6.2 (4.3-11.1) K/mcL Hgb 12.6 L (12.9-16.9) g/dL Hct 37.3 L (37.5-50.1) % Plt Count 171 (140-400) K/mcL Neutrophils # 3.5 (1.6-8.9) K/mcL BMP 09/16/17 01:40 Sodium 135 L Potassium 3.7 Chloride 102 Carbon Dioxide 27 BUN 23 Creatinine 1.27 Glucose 158 H Calcium 9.0 Cardiac Enzymes 09/15/17 09/16/17 Range/Units 21:32 01:40 Troponin I < 0.03 < 0.03 (< 0.04) ng/mL Liver Function 09/16/17 Range/Units 01:40 Total Bilirubin 0.7 (0.3-1.0) mg/dL AST 21 (13-39) Units/L ALT 28 (7-52) Units/L Alkaline Phosphatase 50 (34-104) Units/L Albumin 3.9 (3.5-5.7) g/dL - ABG Interpretation ABG results: PT/INR, D-dimer PT 15.4 Seconds (9.4-12.1) H 09/16/17 01:40 D-Dimer < 215 ng/mLFEU (0-500) 09/15/17 11:15 - Impressions Impressions Echocardiogram 09/16/17 15:26 Impressions: LVEF 40-45%. Mildly dilated left ventricle. Moderate left ventricular diastolic dysfunction. Atypical septal motion consistent with post-operative status. Normal right ventricular structure and function. Mild mitral regurgitation. No evidence of pulmonary hypertension. Left Ventricular Wall Motion: Rest Echo Findings The apex, apical inferior, mid inferior, basal inferior, apical anterior, mid anterior, basal anterior, apical septal, mid inferior septal, basal inferior septal, apical lateral, mid anterior lateral, basal anterior lateral, mid anterior septal, mid inferior lateral, basal anterior septal and basal inferior lateral trotter were hypokinetic. Findings: Study Quality * Technically adequate exam. ECG Findings * Sinus rhythm with BBB. Left Ventricle * LVEF 40-45%. * Mildly dilated left ventricle. * Moderate left ventricular diastolic dysfunction. * Atypical septal motion consistent with post-operative status. Right Ventricle * Normal right ventricular structure and function. Left Atrium * Severely dilated left atrium. Right Atrium * Normal right atrial size. Aortic Valve * Aortic valve not well visualized. * Mildly calcified aortic valve leaflets. * No aortic regurgitation. * No aortic stenosis. Mitral Valve * Mild mitral annular calcification * Mild mitral regurgitation. * No mitral stenosis. Tricuspid Valve * Normal tricuspid valve structure and function. * Trace tricuspid regurgitation. * No evidence of pulmonary hypertension. Pulmonic Valve * Pulmonic valve is not well visualized. * No pulmonic regurgitation. Aorta * Normally sized aortic root. Pericardium * The pericardium appears normal. IVC * Normal IVC dimensions and inspiratory collapse. Pulmonary Artery * Normal visualized portions of the main pulmonary artery. Consult Discharge Plan - Plan Referrals: Aureliano Salamanca MD [Primary Care Provider] - 09/21/17 2:45 pm
[2017-09-16] MEDS: Finasteride 5 MG TABLET PO SCH (20:06)
[2017-09-16] MEDS: (Canagliflozin [Invokana] 300 MG) PO SCH (20:06)
--- NOTE | 2017-09-17 07:59 | Electrocardiograph Report ---
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
[2017-09-17] MEDS: Fenofibrate 54 MG TABLET PO SCH (08:18)
[2017-09-17] MEDS: Bumetanide 1 MG TABLET PO SCH (08:18)
[2017-09-17] MEDS: *HR* Glimepiride 4 MG TABLET PO SCH (08:18)
[2017-09-17] MEDS: Insulin LISPRO 300 UNITS/3 ML VIAL SQ SCH ×3 (08:18→17:16)
[2017-09-17] MEDS: Isosorbide MONOnitrate (24 HR) 30 MG TAB.ER.24H PO SCH ×2 (08:18→21:56)
[2017-09-17] MEDS: *HR* SitaGLIPtin 25 MG TABLET PO SCH (08:18)
--- NOTE | 2017-09-17 09:15 | Cardiology Progress Note ---
Date of Encounter: 09/17/17 Time of Encounter: 09:13 Assessment and Plan (1) Symptomatic bradycardia Current Visit: Yes Status: Acute Presented with symptomatic bradycardia--chest pressure and dyspnea when HR mid 40s or below, per pt. Occasional dizziness on standing, denies syncope. Was on Coreg 12.5mg BID at home and Amiodarone 200mg BID, last doses 09/15/17 AM. Allowed washout of BB and HR improved. Discussed with Dr. Feldman yesterday. Given is PAF hx, started Cardizem 30mg TID and HR is tolerateing well. Will transition to PO Cardizem CD 120mg daily. At bedside HR 70s and pt is currently asymptomatic. 24 hr AVG HR 75, no bradycardia or pauses. Reports principle industrial hygienist in [place] mentioned he may need a PPM at some point. Follows with Dr. Dominguez when in [place]. K, Mag and TSH within normal range. TTE 02/2017 EF 40-45%. Repeat TTE unchanged, EF 40-45%. Cardiology signing off. Reconsult PRN. Will coordinate close outpt follow-up with EP. Recommend repeating EKG this afternoon and if QTc is stable, okay to d/ c home. (2) Coronary artery disease Current Visit: No Status: Chronic Known CAD with previous stenting and CABG 3 in 1999. LHC 01/2017 in setting of non-STEMI showed patent CHATMAN to mid LAD, patent SVG to OM1, patent SVG to right PDA, SVG to diagonal 1 with 80-90% lesion status post PTCA and bare-metal stent placement. Continue Plavix, Statin, Imdur. No BB due to bradycardia. Is not on ASA since he is also on Eliquis for PAF. Qualifiers: Coronary Disease-Associated Artery/Lesion type: [place] artery [place] vs. transplanted heart: [place] heart Associated angina: without angina Qualified Code(s): I25.10 - Atherosclerotic heart disease of [place] coronary artery without angina pectoris (3) PAF (paroxysmal atrial fibrillation) Current Visit: No Status: Chronic Known hx of PAF and prior ablation in 2009. Recurrent episode of A. fib with RVR requiring DCCV in 2017. Was started on Amiodarone 200mg BID by [place] principle industrial hygienist 2-3 months ago. Per pt, was started on Amiodarone due to another medication failing, but unable to give me the name of medication. Will request records from [place]. Currently sinus rhythm, stopped BB due to bradycardia and stopped Amiodarone due to QTc prolongation. Started low dose CCB, Cardizem CD 120mg daily. Anticoagulated on Eliquis. Will recommend outpt follow-up with Dr. Pavan Garcia. (4) Prolonged QT interval Current Visit: Yes Status: Acute Recently started on Azithromycin for possible sinus infection. Was started on Amiodarone by [place] principle industrial hygienist 2-3 months ago. QTc 553ms on admission 09/15/17. Stopped and Amiodarone, hold any other QT prolonging medications. Baseline QTc 02/10/17 494ms. Continue to monitor closely. Repeat EKG today QTc 534ms. I discussed and reviewed with Dr. Feldman. Does not recommend resuming Amiodarone. Repeat EKG this afternoon and if QTc stable, okay to d/c home. Close outpt follow-up with EP. Discussion w patient/family: The assessment and plan as outlined above was discussed with the patient and/or family members who expressed understanding and agreement. All questions were answered. Thank you for involving us in the care of your patient. Please call with any questions. I will discuss all the above with Dr. Feldman and make changes as necessary. Subjective Principal diagnosis: Symptomatic bradycardia Interval history: Pt reports feeling better today, one episode chest pressure overnight that relieved with belching. 24 hr tele AVG HR 75, no bradycardic events. No significant pauses. QTc remains prolonged, but stable and improved since admission--QTc 545ms today. TTE resulted-- LVEF 40-45%. Mildly dilated left ventricle. Moderate LVDD. Mild MR. EF unchanged from limited echo 02/2017. Objective Vital Signs, Last 4 Hours Temp Pulse Resp BP Pulse Ox 09/17/17 07:58 98.3 F 77 16 131/77 93 Vital Signs Temp Pulse Resp BP Pulse Ox 09/17/17 07:58 98.3 F 77 16 131/77 93 09/17/17 03:43 98.5 F 73 16 127/63 97 09/17/17 00:00 71 09/16/17 23:36 98.3 F 72 16 125/63 92 09/16/17 20:00 73 09/16/17 19:40 97.4 F L 77 16 149/83 93 09/16/17 16:11 98.7 F 75 16 145/81 97 09/16/17 11:16 98.8 F 76 16 120/78 96 09/16/17 11:15 93 Intake and Output 09/16/17 09/17/17 09/17/17 23:59 07:59 15:59 Intake Total 480 / 480 200 / 200 120 / 120 Balance 480 / 480 200 / 200 120 / 120 Intake: Oral 480 / 480 200 / 200 120 / 120 Other: Meal Dinner Percent of Meal Consumed 100% Weight 110.6 kg Blood Glucose* 149 153 Patient Weight 09/17/17 23:59 Weight 110.6 kg General: Conversant, No Apparent Distress HEENT: Atraumatic, Normocephaly, Mucus Membranes Moist Neck: No JVD, Normal carotid pulses Cardiac: Reg Rate and Rhythm, Normal S1 and S2, No Murmur Lungs: Normal Breath Sounds, No Wheeze, Rales, Rhonchi Neuro: Alert and responsive, No focal deficits noted Abdomen: Soft, Non-Tender Skin: No rashes noted on visualized skin Musculoskeletal: No Chest Wall Tenderness Extremities: No Clubbing, No Cyanosis, No Edema, Normal Pulses Results 09/16/17 01:40 09/16/17 01:40 Impressions Echocardiogram 09/16/17 15:26 Impressions: LVEF 40-45%. Mildly dilated left ventricle. Moderate left ventricular diastolic dysfunction. Atypical septal motion consistent with post-operative status. Normal right ventricular structure and function. Mild mitral regurgitation. No evidence of pulmonary hypertension. Left Ventricular Wall Motion: Rest Echo Findings The apex, apical inferior, mid inferior, basal inferior, apical anterior, mid anterior, basal anterior, apical septal, mid inferior septal, basal inferior septal, apical lateral, mid anterior lateral, basal anterior lateral, mid anterior septal, mid inferior lateral, basal anterior septal and basal inferior lateral trotter were hypokinetic. Findings: Study Quality * Technically adequate exam. ECG Findings * Sinus rhythm with BBB. Left Ventricle * LVEF 40-45%. * Mildly dilated left ventricle. * Moderate left ventricular diastolic dysfunction. * Atypical septal motion consistent with post-operative status. Right Ventricle * Normal right ventricular structure and function. Left Atrium * Severely dilated left atrium. Right Atrium * Normal right atrial size. Aortic Valve * Aortic valve not well visualized. * Mildly calcified aortic valve leaflets. * No aortic regurgitation. * No aortic stenosis. Mitral Valve * Mild mitral annular calcification * Mild mitral regurgitation. * No mitral stenosis. Tricuspid Valve * Normal tricuspid valve structure and function. * Trace tricuspid regurgitation. * No evidence of pulmonary hypertension. Pulmonic Valve * Pulmonic valve is not well visualized. * No pulmonic regurgitation. Aorta * Normally sized aortic root. Pericardium * The pericardium appears normal. IVC * Normal IVC dimensions and inspiratory collapse. Pulmonary Artery * Normal visualized portions of the main pulmonary artery. Active Medications Apixaban (Eliquis) 5 mg PO BID [facility] Stop: 03/17/18 21:01 Last Admin: 09/16/17 07:44 Dose: 5 mg Atorvastatin Calcium (Lipitor) 40 mg PO HS [facility] Stop: 03/17/18 21:01 Last Admin: 09/16/17 20:06 Dose: 40 mg Bumetanide (Bumex) 1 mg PO DAILY [facility] Stop: 03/18/18 09:01 Last Admin: 09/17/17 08:18 Dose: 1 mg Clopidogrel Bisulfate (Plavix) 75 mg PO DAILY [facility] Stop: 03/18/18 09:01 Last Admin: 09/17/17 08:18 Dose: 75 mg Dextrose/Water (Dextrose 50% (Syg)) 25 ml IVP AD PRN PRN Reason: Hypoglycemia Stop: 03/17/18 14:01 Diltiazem HCl (Cardizem) 30 mg PO Q8H [facility] Stop: 03/18/18 11:31 Last Admin: 09/17/17 04:02 Dose: 30 mg Fenofibrate (Tricor) 54 mg PO DAILY [facility] Stop: 03/18/18 09:01 Last Admin: 09/17/17 08:18 Dose: 54 mg Finasteride (Proscar) 5 mg PO HS [facility] PRN Reason: Protocol Stop: 03/17/18 21:01 Last Admin: 09/16/17 20:06 Dose: 5 mg Glimepiride (Amaryl) 4 mg PO DAILY [facility] Stop: 03/18/18 09:01 Last Admin: 09/17/17 08:18 Dose: 4 mg Glucagon (Glucagen) 1 mg IM ONCE PRN PRN Reason: Hypoglycemia Stop: 03/17/18 14:01 Glucose (Gluctose) 15 gm PO ONCE PRN PRN Reason: Hypoglycemia Stop: 03/17/18 14:01 Glucose (Gluctose) 30 gm PO ONCE PRN PRN Reason: Hypoglycemia Stop: 03/17/18 14:01 Dextrose (Dextrose 5%) 1,000 mls @ 100 mls/hr IVC .Q10H PRN PRN Reason: HYPOGLYCEMIA Stop: 03/17/18 14:01 Insulin Human Lispro (Humalog) 0 units SQ TIDAC [facility] PRN Reason: Protocol Stop: 03/17/18 16:31 Last Admin: 09/17/17 08:18 Dose: 2 units Isosorbide Mononitrate (Imdur) 30 mg PO BID [facility] Stop: 03/17/18 21:01 Last Admin: 09/17/17 08:18 Dose: 30 mg Naloxone HCl (Narcan) 0.4 mg IVP Q2MIN PRN PRN Reason: SEE COMMENTS Stop: 03/17/18 13:55 Omeprazole (Prilosec) 20 mg PO QAM [facility] Stop: 03/18/18 09:01 Last Admin: 09/17/17 08:19 Dose: Not Given Pharmacy Profile Note (Patient Taking Own Medication) 1 each PO HS [facility] Stop: 03/18/18 21:01 Last Admin: 09/16/17 20:06 Dose: 1 each Potassium Chloride (Potassium Chloride) 10 meq PO HS [facility] Stop: 03/17/18 21:01 Last Admin: 09/16/17 20:06 Dose: 10 meq Sitagliptin Phosphate (Januvia) 50 mg PO DAILY [facility] Stop: 03/18/18 09:01 Last Admin: 09/17/17 08:18 Dose: 50 mg - Imaging and Cardiology Echo: report reviewed - EKG Interpretation EKG results cardiology: other (24 hr tele AVG HR 75, no bradycardic events or pauses.) Consult Discharge Plan - Plan Referrals: Aureliano Salamanca MD [Primary Care Provider] - 09/21/17 2:45 pm
[2017-09-17] MEDS: Diltiazem CD (24hr) 120 MG CAPSULE PO SCH (12:03)
[2017-09-17] MEDS: Apixaban 5 MG TABLET PO SCH ×2 (12:03→21:56)
--- NOTE | 2017-09-17 13:39 | Event Note ---
Date of Encounter: 09/17/17 Time of Encounter: 13:37 - Cardiology Event Note Repeated EKG this afternoon. AM EKG QT/QTc 507/534ms. Repeat QT/QTc 514/544ms. Given increase in QT/QTc, recommend keep pt for further monitoring and repeat EKG in AM. Allow Azithromycin to washout longer. Was also on Amiodarone, which will be in his system for months. Will recheck EKG in AM and make further recs at that time.
--- NOTE | 2017-09-17 13:57 | Internal Med Progress Note ---
Date of Encounter: 09/17/17 Time of Encounter: 13:55 - Assessment and plan (1) Symptomatic bradycardia Current Visit: Yes Status: Acute Assessment and plan: Symptomatic bradycardia likely secondary to carvedilol next Was taking amiodarone 200 mg twice a day since the winter Presented with dizziness and noted that patient's heart rate was less than 50. Carvedilol and amiodarone where discontinued, cardiology recommending to start Cardizem, AM EKG QT/QTc 507/534ms. Repeat QT/ QTc 514/544ms, we will observe on telemetry one more day May discharge in the morning if QT is less prolonged Takes [place] Stopped taking azithromycin due to prolonged QT (2) Coronary artery disease Current Visit: No Status: Chronic Assessment and plan: coronary artery disease. CABG 3 in 1999 Patient had a heart catheter in 01/2017 Presently on Plavix/statin/Imdur Qualifiers: Coronary Disease-Associated Artery/Lesion type: [place] artery [place] vs. transplanted heart: [place] heart Associated angina: without angina Qualified Code(s): I25.10 - Atherosclerotic heart disease of [place] coronary artery without angina pectoris (3) Hypertension Current Visit: No Status: Chronic Assessment and plan: Stable Qualifiers: Hypertension type: essential hypertension Qualified Code(s): I10 - Essential (primary) hypertension (4) Chest pain Current Visit: No Status: Acute Assessment and plan: Patient is off and on chest pain. Possibly related to abdominal hernia Qualifiers: Chest pain type: unspecified Qualified Code(s): R07.9 - Chest pain, unspecified (5) Type 2 diabetes mellitus Current Visit: No Status: Chronic Assessment and plan: Insulin Sliding scale Qualifiers: Diabetes mellitus mcc insulin use: with mcc use Diabetes mellitus complication status: with unspecified complications Qualified Code(s) : E11.8 - Type 2 diabetes mellitus with unspecified complications; Z79.4 - senior living (current) use of insulin - Time Spent With Patient Total time spent is greater than 50% in coordination of care (as documented) at patient's floor/unit and/or counseling patient: - Subjective Interval history: No complaints. Denies any dizziness, note chest pain at the moment no abdominal pain, no dysuria, no diarrhea no fevers, mild cough - Constitutional Vitals: Temp Pulse Resp BP Pulse Ox 97.4 F L 81 16 152/87 94 09/17/17 11:34 09/17/17 11:34 09/17/17 11:34 09/17/17 11:34 09/17/17 11:34 General appearance: Present: A&O X 3 Exam: - Head Head exam: Present: atraumatic, normocephalic - Eye Eye exam: Present: PERRL, conjuntiva pink, sclera anicteric Pupils: Present: PERRL - Neck Neck exam general surgery: Present: supple, trachea midline. Absent: lymphadenopathy - Respiratory Respiratory exam: Present: CTAB. Absent: accessory muscle use, rales, rhonchi, wheezes Additional comments: Abdominal hernia not incarcerated - Cardiovascular Cardiovascular exam: Present: RRR, +S1, +S2. Absent: diastolic murmur, gallop, rubs, systolic murmur - GI/Abdominal GI/Abdominal exam: Present: normal bowel sounds, soft, no peritoneal signs. Absent: distended, tenderness - Extremities Exam Extremities exam: Present: warm, radial pulses palpable and symmetrical. Absent : calf tenderness, cyanotic, pedal edema - Neurological Exam Neurological exam: Present: CN II-XII intact, oriented X3, no focal deficits. Absent: pronater drift, facial droop, speech deficit - Skin Skin exam: Present: dry, intact Internal Medicine: Result - Labs CBC & Chem 7: 09/16/17 01:40 09/16/17 01:40 - ABG Interpretation ABG results: PT/INR, D-dimer PT 15.4 Seconds (9.4-12.1) H 09/16/17 01:40 D-Dimer < 215 ng/mLFEU (0-500) 09/15/17 11:15 Consult Discharge Plan - Plan Referrals: Aureliano Salamanca MD [Primary Care Provider] - 09/21/17 2:45 pm
[2017-09-17] MEDS: Finasteride 5 MG TABLET PO SCH (21:56)
[2017-09-17] MEDS: (Canagliflozin [Invokana] 300 MG) PO SCH (23:33)
[2017-09-18] MEDS: Insulin LISPRO 300 UNITS/3 ML VIAL SQ SCH (08:09)
[2017-09-18] MEDS: *HR* SitaGLIPtin 25 MG TABLET PO SCH (08:09)
[2017-09-18] MEDS: Apixaban 5 MG TABLET PO SCH (08:10)
[2017-09-18] MEDS: *HR* Glimepiride 4 MG TABLET PO SCH (08:10)
[2017-09-18] MEDS: Bumetanide 1 MG TABLET PO SCH (08:10)
[2017-09-18] MEDS: Diltiazem CD (24hr) 120 MG CAPSULE PO SCH (08:10)
[2017-09-18] MEDS: Fenofibrate 54 MG TABLET PO SCH (08:10)
[2017-09-18] MEDS: Isosorbide MONOnitrate (24 HR) 30 MG TAB.ER.24H PO SCH (08:10)
--- NOTE | 2017-09-18 09:32 | Event Note ---
Date of Encounter: 09/18/17 Time of Encounter: 09:29 - Cardiology Event Note Repeat EKG this AM shows QT/QTc has improved--496/529ms today, was 514/544ms yesterday afternoon. Okay to d/c home from cardiac standpoint. Continue low dose Cardizem. Cardiology signing off. Reconsult PRN. Close outpt follow up coordinated.
--- NOTE | 2017-09-18 10:15 | Cardiology Progress Note ---
Date of Encounter: 09/18/17 Time of Encounter: 10:15 Assessment and Plan (1) Afib Current Visit: No Status: Chronic Continue anticoagulation and cardizem rate control, fu with EP outpt Qualifiers: Atrial fibrillation type: paroxysmal Qualified Code(s): I48.0 - Paroxysmal atrial fibrillation (2) Prolonged QT interval Current Visit: Yes Status: Acute Recently started on Azithromycin for possible sinus infection. Was started on Amiodarone by [place] log clerk 2-3 months ago. QTc 553ms on admission 09/15/17. Stopped amiodarone, azithromycin washout. QTC decreased today, asymptomatic. Stable for dc home on low dose cardizem. Discussion w patient/family: The assessment and plan as outlined above was discussed with the patient and/or family members who expressed understanding and agreement. All questions were answered. Thank you for involving us in the care of your patient. Please call with any questions. Subjective Principal diagnosis: Symptomatic bradycardia Interval history: felt well overnight without chest/jaw/arm discomfort nor palpitations Objective Vital Signs, Last 4 Hours Temp Pulse Resp BP Pulse Ox 09/18/17 08:15 81 09/18/17 07:21 98.0 F 81 18 132/80 96 General: Conversant HEENT: Atraumatic Neck: No JVD Cardiac: Reg Rate and Rhythm Lungs: Normal Breath Sounds Neuro: Alert and responsive Abdomen: Soft Skin: No rashes noted on visualized skin Musculoskeletal: No Chest Wall Tenderness Extremities: No Edema Results 09/16/17 01:40 09/16/17 01:40 - EKG Interpretation EKG results cardiology: personally reviewed (QTC decreased) Consult Discharge Plan - Plan Referrals: Aureliano Salamanca MD [Primary Care Provider] - 09/21/17 2:45 pm
[2017-09-18 11:18] VITALS: BP 131/87
--- NOTE | 2017-09-18 12:02 | Discharge Summary ---
- NOTES TO OUTPATIENT PROVIDER Notes to Outpatient Provider: Stop taking carvedilol and amiodarone. Continue Cardizem (diltiazem) 120 mg daily. Follow-up with cardiology within the next 2 weeks. Follow-up with primary care physician within the next 7 days. Orders not resulted at time of discharge: Pending orders 09/16/17 09:57 EKG [ECG 12 lead ECG] [ECG] Routine 09/17/17 06:00 EKG [ECG 12 lead ECG] [ECG] AM 0600 09/17/17 14:00 EKG [ECG 12 lead ECG] [ECG] Routine 09/18/17 06:00 EKG [ECG 12 lead ECG] [ECG] AM 0600 Date of Encounter: 09/18/17 Time of Encounter: 12:00 - Discharge Diagnosis (1) Symptomatic bradycardia Priority: Primary Status: Acute Assessment and Plan: Symptomatic bradycardia likely secondary to carvedilol (2) Coronary artery disease Priority: Secondary Status: Chronic Assessment and Plan: coronary artery disease. CABG 3 in 1999 Patient had a heart catheter in 01/2017 Presently on Plavix/statin/Imdur Qualifiers: Coronary Disease-Associated Artery/Lesion type: [place] artery [place] vs. transplanted heart: [place] heart Associated angina: without angina Qualified Code(s): I25.10 - Atherosclerotic heart disease of [place] coronary artery without angina pectoris (3) Hypertension Priority: Secondary Status: Chronic Qualifiers: Hypertension type: essential hypertension Qualified Code(s): I10 - Essential (primary) hypertension (4) Chest pain Priority: Secondary Status: Acute Qualifiers: Chest pain type: unspecified Qualified Code(s): R07.9 - Chest pain, unspecified (5) Type 2 diabetes mellitus Priority: Secondary Status: Chronic Qualifiers: Diabetes mellitus snf insulin use: without intermediate accountant use Diabetes mellitus complication status: with unspecified complications Qualified Code(s) : E11.8 - Type 2 diabetes mellitus with unspecified complications Hospital course: Mr. Tiwari is a 72 year old male with PMH of CAD, prior 4 vessel CABG, PCI, HTN , HLD, AF (prior AF ablation at [facility], 2009) on Eliquis, RBBB , and DM type II not insulin-dependent. 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 Pt reported he began experiencing chest pressure and dyspnea , intermittent, prompting ED evaluation. He was found to be bradycardic on presentation, HR as low as 30s. He has been watching the monitor and states he starts having chest pressure and dyspnea when HR is 46 or lower. HR at bedside is upper 50s-low 60s and pt is asymptomatic currently. Pt states his aluminum fabrication supervisor in [place] mentioned he may need a pacemaker at some point, but that has never been mentioned in [facility] records. He reported being on Coreg 12.5mg BID at home and Amiodarone 200 mg BID. QTc also found to be prolonged, 553ms. He was recently started on Azithromycin for URI, last dose given prior to admission. Was taking amiodarone 200 mg twice a day since the winter Carvedilol and amiodarone where discontinued, Cardiology recommended to continue only Cardizem Takes Yazmin Stopped taking azithromycin due to prolonged QT Stable to be discharged per Cardiology TTE 01/20/2017: LVEF 45-50%. Mild to moderate dilated LV. Moderate diastolic dysfunction. Normal RV size and function. Moderate LA enlargement. Mild MR. Small to moderate pericardial effusion adjacent to RA. No tamponade. Limited TTE 02/09/2017: LVEF 40-45%. Probable small to moderate pericardial effusion adjacent to the right atrium is not well visualized. Suboptimal image quality. [facility] 01/19/2017: LM patent stents, nl. LAD ostial 100% stenosis. D1 100% stenosis. Cx ostial 100% stenosis. RCA mid 100% stenosis. CHATMAN-mLAD patent. SVG-OM1 patent. SVG-rPDA patent. SVG-D1 90-99% stenosis (BMS x1 placed). - Time Spent with Patient Total time spent providing and/or coordinating discharge services: Greater than 30 minutes (40 min) - Discharge Medications Prescriptions: Diltiazem CD (24hr) [Cardizem CD] 120 mg PO DAILY #30 cap.er.24h Home Medications: Atorvastatin [Lipitor] 40 mg PO HS 01/01/15 [History] Canagliflozin [Invokana] 300 mg PO QAM 01/01/15 [History] Esomeprazole Magnesium [Nexium] 40 mg PO HS 01/01/15 [History] Isosorbide MONOnitrate (24 HR) [Imdur] 30 mg PO BID 01/01/15 [History] Glimepiride [Amaryl] 4 mg PO HS 10/08/15 [History] Clopidogrel [Plavix] 75 mg PO DAILY #30 tablet 01/22/16 [Rx] Fenofibrate Nanocrystallized [Tricor] 48 mg PO DAILY 01/18/17 [History] Gabapentin [Neurontin] 600 mg PO TID 01/18/17 [History] Sitagliptin Phosphate [Januvia] 50 mg PO DAILY 01/18/17 [History] Apixaban [Eliquis] 5 mg PO BID 09/15/17 [History] Bumetanide [Bumex] 1 mg PO DAILY 09/15/17 [History] Finasteride [Proscar] 5 mg PO HS 09/15/17 [History] Potassium Chloride [Klor-Con 10] 10 meq PO HS 09/15/17 [History] Diltiazem CD (24hr) [Cardizem CD] 120 mg PO DAILY #30 cap.er.24h 09/18/17 [Rx] Allergies/Adverse Reactions: 3 Allergy/AdvReac Type Severity Reaction Status Date / Time bacitracin Allergy Intermediate Blister Verified 09/15/17 13:52 [From Neosporin ([id number])] Neomycin Allergy Intermediate Blister Verified 09/15/17 13:52 [From Neosporin ([id number])] polymyxin B Allergy Intermediate Blister Verified 09/15/17 13:52 [From Neosporin ([id number])] Date of admission: 09/15/17 15:45 Primary care physician: Aureliano Salamanca MD Consults: 09/17/17 13:35 Consult to Cardiology [CONS] Routine Comment: Consulting Provider: [facility] [place] Reason for Consult: Per Dr. Hopson, QTC prolongation Call Completed: Yes - Constitutional Vitals: Temp Pulse Resp BP Pulse Ox 98.1 F 88 17 131/87 96 09/18/17 11:16 09/18/17 11:16 09/18/17 11:16 09/18/17 11:16 09/18/17 11:16 General appearance: Present: A&O X 3 Exam: - Head Head exam: Present: atraumatic, normocephalic - Eye Eye exam: Present: PERRL, conjuntiva pink, sclera anicteric Pupils: Present: PERRL - Neck Neck exam general surgery: Present: supple, trachea midline. Absent: lymphadenopathy - Respiratory Respiratory exam: Present: CTAB. Absent: accessory muscle use, rales, rhonchi, wheezes Additional comments: Abdominal hernia not incarcerated - Cardiovascular Cardiovascular exam: Present: RRR, +S1, +S2. Absent: diastolic murmur, gallop, rubs, systolic murmur - GI/Abdominal GI/Abdominal exam: Present: normal bowel sounds, soft, no peritoneal signs. Absent: distended, tenderness - Extremities Exam Extremities exam: Present: warm, radial pulses palpable and symmetrical. Absent : calf tenderness, cyanotic, pedal edema - Neurological Exam Neurological exam: Present: CN II-XII intact, oriented X3, no focal deficits. Absent: pronater drift, facial droop, speech deficit - Skin Skin exam: Present: dry, intact - Patient Status Disposition: Home, Self-Care Condition: Fair Overall status at discharge: patient is back to baseline - Discharge Instructions Follow Up With: Aureliano Salamanca MD [Primary Care Provider] - 09/21/17 2:45 pm - Diet and Activity Activity: increase activity as tolerated Diet: diabetic diet
--- NOTE | 2017-09-19 13:12 | Electrocardiograph Report ---
[place] [id number] Test Date: 2017-09-17 Pat Name: Jon Tiwari Department: 110 Room: 2A Gender: M Promotions Assistant: [id number] : 1945 Requested By: Sterling Turner Order Number: [id number] Reading MD: Darinel Feldman Measurements Intervals [place] Rate: 74 P: 15 TX: 223 QRS: 247 QRSD: 193 T: 53 QT: 507 QTc: 534 Interpretive Statements SINUS RHYTHM WITH FIRST DEGREE AV BLOCK MARKED RIGHT AXIS DEVIATION RIGHT BUNDLE BRANCH BLOCK Electronically Signed On 09-19-2017 9:05:39 EDT by Darinel Feldman
--- NOTE | 2017-09-19 13:12 | Electrocardiograph Report ---
[place] [address] Test Date: 2017-09-16 Pat Name: Jon Tiwari Department: 110 Room: 2A Gender: M Outreach Worker: : 1945 Requested By: Sterling Turner Order Number: [id number] Reading MD: Darinel Feldman Measurements Intervals [place] Rate: 73 P: [place]: 0 QRS: 241 QRSD: 193 T: 32 QT: 509 QTc: 535 Interpretive Statements SINUS RHYTHM MARKED RIGHT AXIS DEVIATION RIGHT BUNDLE BRANCH BLOCK Electronically Signed On 09-19-2017 8:59:54 EDT by Darinel Feldman
--- NOTE | 2017-09-19 13:14 | Electrocardiograph Report ---
[place] [address] Test Date: 2017-09-17 Pat Name: Jon Tiwari Department: 110 Room: 2A Gender: M Disc Sander: : 1945 Requested By: Sterling Turner Order Number: [id number] Reading MD: Darinel Feldman Measurements Intervals [place] Rate: 77 P: -82 CT: 160 QRS: 253 QRSD: 190 T: 58 QT: 512 QTc: 544 Interpretive Statements SINUS RHYTHM MARKED RIGHT AXIS DEVIATION RIGHT BUNDLE BRANCH BLOCK Electronically Signed On 09-19-2017 10:00:26 EDT by Darinel Feldman
--- NOTE | 2017-09-19 13:15 | Electrocardiograph Report ---
[address] [address] Test Date: 2017-09-18 Pat Name: Jon Tiwari Department: 112 Room: 2A Gender: M Triple Valve Tester: : 1945 Requested By: Sterling Turner Order Number: [id number] Reading MD: Darinel Feldman Measurements Intervals [place] Rate: 78 P: 71 TN: 239 QRS: 244 QRSD: 197 T: 51 QT: 496 QTc: 529 Interpretive Statements SINUS RHYTHM WITH FIRST DEGREE AV BLOCK WITH OCCASIONAL SUPRAVENTRICULAR PREMATURE COMPLEXES MARKED RIGHT AXIS DEVIATION RIGHT BUNDLE BRANCH BLOCK Electronically Signed On 09-19-2017 10:08:58 EDT by Darinel Feldman
== END 2017-09-18 13:15 | disposition home or self-care (01) ==
LOC: EMEROO 10:38 → 2NNU 10:38 → 2ANU 09-17 21:21
PROVIDERS: ADMIT Hospitalist; ATTEND Hospitalist

== ENCOUNTER 2017-10-21 19:13 | Observation (INO) ==
[2017-10-21 20:20] LABS: Activated Partial Thrombo Time 37.4 Seconds (26.0-36.0); INR 1.3; Prothrombin Time 13.8 Seconds (9.4-12.1)
[2017-10-21 20:35] LABS: BUN/Creatinine Ratio 16 (6-26); Blood Urea Nitrogen 22 mg/dL (8-23); Calcium 9.2 mg/dL (8.6-10.3); Carbon Dioxide 22 mEq/L (23-29); Chloride 98 mEq/L (98-107); Glucose 285 mg/dL (70-105); Osmolality,Calculated 292 (280-300); Potassium 3.3 mEq/L (3.5-5.1); Sodium 134 mEq/L (136-145); eGFR For African Americans > 60 (> 60); eGFR For Non-African Americans 51 (> 60)
[2017-10-21 20:36] LABS: Troponin I 0.03 ng/mL (< 0.04)
--- NOTE | 2017-10-21 20:44 | Emergency Department Note ---
Disposition Clinical Impression: Chest pain Qualifiers: Chest pain type: unspecified Qualified Code(s): R07.9 - Chest pain, unspecified Disposition: Admitted As Inpatient Time of Disposition: 23:23 General Adult HPI - General Chief complaint: ED Chest Pain Stated complaint: chest pain Time Seen by Provider: 10/21/17 19:16 Source: patient Limitations: no limitations - History of Present Illness Pain Scale: 2 - Related Data Home Medications Medication Instructions Recorded Confirmed Atorvastatin [Lipitor] 40 mg PO HS 01/01/15 10/21/17 Canagliflozin [Invokana] 300 mg PO QAM 01/01/15 10/21/17 Esomeprazole Magnesium [Nexium] 40 mg PO HS 01/01/15 10/21/17 Isosorbide MONOnitrate (24 HR) 30 mg PO BID 01/01/15 10/21/17 [Imdur] Glimepiride [Amaryl] 4 mg PO HS 10/08/15 10/21/17 Fenofibrate Nanocrystallized 48 mg PO DAILY 01/18/17 10/21/17 [Tricor] Gabapentin [Neurontin] 600 mg PO TID 01/18/17 10/21/17 Sitagliptin Phosphate [Januvia] 50 mg PO DAILY 01/18/17 10/21/17 Apixaban [Eliquis] 5 mg PO BID 09/15/17 10/21/17 Bumetanide [Bumex] 1 mg PO DAILY 09/15/17 10/21/17 Finasteride [Proscar] 5 mg PO HS 09/15/17 10/21/17 Potassium Chloride [Klor-Con 10] 10 meq PO HS 09/15/17 10/21/17 Previous Rx's Medication Instructions Recorded Clopidogrel [Plavix] 75 mg PO DAILY #30 tablet 01/22/16 Diltiazem CD (24hr) [Cardizem CD] 120 mg PO DAILY #30 cap.er.24h 09/18/17 Allergies Allergy/AdvReac Type Severity Reaction Status Date / Time bacitracin Allergy Intermediate Blister Verified 10/05/17 01:26 [From Neosporin ([id number]-[id number])] Neomycin Allergy Intermediate Blister Verified 10/05/17 01:26 [From Neosporin ([id number]-lew-[id number])] polymyxin B Allergy Intermediate Blister Verified 10/05/17 01:26 [From Neosporin ([id number])] azithromycin AdvReac See Verified 10/21/17 19:37 Comments Past Medical History - Past Medical History Medical history: Reports: arthritis, atrial fibrillation, cancer, coronary artery disease, diabetes, GERD, hypertension, myocardial infarction Surgical history: Reports: angioplasty/stent, cataract, cholecystectomy, coronary bypass (CABG), other Psychiatric history: Reports: no psych history - Social History Smoking Status: Former smoker Smokeless Tobacco Status: No Alcohol use: Reports: none Drug use: Reports: none Physical Exam - General Limitations: no limitations General appearance: alert, in no apparent distress Course Vital Signs Temperature 98.0 F 10/21/17 19:19 Pulse Rate 93 10/21/17 19:19 Respiratory Rate 16 10/21/17 19:19 Blood Pressure 149/89 10/21/17 19:19 O2 Sat by Pulse Oximetry 95 10/21/17 19:19 Temperature 98.0 F 10/21/17 19:19 Pulse Rate 87 10/21/17 21:33 Respiratory Rate 18 10/21/17 21:33 Blood Pressure 143/84 10/21/17 21:33 O2 Sat by Pulse Oximetry 95 10/21/17 21:33 Oxygen Delivery Oxygen Delivery Room Air Medical Decision Making - Lab Data Result diagrams: 10/21/17 19:50 Lab Results 10/21/17 10/21/17 10/21/17 Range/Units 19:50 19:50 19:50 PT 13.8 H (9.4-12.1) Seconds INR 1.3 APTT 37.4 H (26.0-36.0) Seconds Sodium 134 L (136-145) mEq/L Potassium 3.3 L (3.5-5.1) mEq/L Chloride 98 (98-107) mEq/L Carbon Dioxide 22 L (23-29) mEq/L BUN 22 (8-23) mg/dL Creatinine 1.39 H (0.70-1.30) mg/dL Est GFR ( Amer) > 60 (> 60) Est GFR (Non-Af Amer) 51 L (> 60) BUN/Creatinine Ratio 16 (6-26) Glucose 285 H (70-105) mg/dL Calculated Osmolality 292 (280-300) Calcium 9.2 (8.6-10.3) mg/dL Troponin I 0.03 (< 0.04) ng/mL B-Natriuretic Peptide 152 H (Less than 100) pg/mL TSH 4.979 (0.340-5.600) mcIU/mL 10/21/17 Range/Units 21:52 PT (9.4-12.1) Seconds INR APTT (26.0-36.0) Seconds Sodium (136-145) mEq/L Potassium (3.5-5.1) mEq/L Chloride (98-107) mEq/L Carbon Dioxide (23-29) mEq/L BUN (8-23) mg/dL Creatinine (0.70-1.30) mg/dL Est GFR ( Amer) (> 60) Est GFR (Non-Af Amer) (> 60) BUN/Creatinine Ratio (6-26) Glucose (70-105) mg/dL Calculated Osmolality (280-300) Calcium (8.6-10.3) mg/dL Troponin I 0.04 H* (< 0.04) ng/mL B-Natriuretic Peptide (Less than 100) pg/mL TSH (0.340-5.600) mcIU/mL Attestation Statement - Attestation Attestation: I examined this patient and my medical decision-making was reviewed with the Resident Physician. I agree with the documented findings, disposition and treatment plan as described except to the extent set forth below. Patient to the ED complaining of an episode of tachycardia and pain in his back. It is since resolved. Patient just saw his leach tank tender today who changed his medications, but he has not yet filled them. Patient has a history of A. fib but is usually in sinus rhythm. On examination he does not appear to be in acute distress. Heart regular rate and rhythm. His lungs are clear. Plan. Cardiac workup and monitoring. The patient's initial evaluation was negative. His EKG was unchanged from baseline. Did agree upon a repeat troponin check with the discharge if it was negative. His troponin elevated at 0.04. He is provided with an aspirin and admitted to medicine for further cardiac workup.
[2017-10-21 20:50] LABS: Thyroid Stimulating Hormone 4.979 mcIU/mL (0.340-5.600)
--- NOTE | 2017-10-21 21:36 | Emergency Department Note ---
Disposition Clinical Impression: Elevated troponin Chest pain Qualifiers: Chest pain type: unspecified Qualified Code(s): R07.9 - Chest pain, unspecified Disposition: Admitted As Inpatient Condition: Good Referrals: Aureliano Salamanca MD [Primary Care Provider] - Forms: ED Satisfaction Letter General Adult HPI - General Chief complaint: ED Chest Pain Stated complaint: chest pain Time Seen by Provider: 10/21/17 19:16 Source: patient Limitations: no limitations Nursing Notes Reviewed: Yes Vital Signs Reviewed: Yes - History of Present Illness HPI Narrative: 72-year-old male presents to emergency department after having an episode of back pain that radiated over to the left side of his chest with palpitations. This happened earlier today. Patient was at his cardiology office for beforehand. Patient states that his pulse was in the 150s. Patient has known history of paroxysmal atrial fibrillation. States that he has been under a lot of stress lately. Patient denies any current active chest pain. Patient has known stents as well as having a CABG. Pain Scale: 0 - Related Data Home Medications Medication Instructions Recorded Confirmed Atorvastatin [Lipitor] 40 mg PO HS 01/01/15 10/21/17 Canagliflozin [Invokana] 300 mg PO QAM 01/01/15 10/21/17 Esomeprazole Magnesium [Nexium] 40 mg PO HS 01/01/15 10/21/17 Isosorbide MONOnitrate (24 HR) 30 mg PO BID 01/01/15 10/21/17 [Imdur] Glimepiride [Amaryl] 4 mg PO HS 10/08/15 10/21/17 Fenofibrate Nanocrystallized 48 mg PO DAILY 01/18/17 10/21/17 [Tricor] Gabapentin [Neurontin] 600 mg PO TID 01/18/17 10/21/17 Sitagliptin Phosphate [Januvia] 50 mg PO DAILY 01/18/17 10/21/17 Apixaban [Eliquis] 5 mg PO BID 09/15/17 10/21/17 Bumetanide [Bumex] 1 mg PO DAILY 09/15/17 10/21/17 Finasteride [Proscar] 5 mg PO HS 09/15/17 10/21/17 Potassium Chloride [Klor-Con 10] 10 meq PO HS 09/15/17 10/21/17 Previous Rx's Medication Instructions Recorded Clopidogrel [Plavix] 75 mg PO DAILY #30 tablet 01/22/16 Diltiazem CD (24hr) [Cardizem CD] 120 mg PO DAILY #30 cap.er.24h 09/18/17 Allergies Allergy/AdvReac Type Severity Reaction Status Date / Time bacitracin Allergy Intermediate Blister Verified 10/05/17 01:26 [From Neosporin (czy-lnh-eslkl)] Neomycin Allergy Intermediate Blister Verified 10/05/17 01:26 [From Neosporin ([id number]-[id number])] polymyxin B Allergy Intermediate Blister Verified 10/05/17 01:26 [From Neosporin ([id number]-[id number])] azithromycin AdvReac See Verified 10/21/17 19:37 Comments All systems ED: reviewed and negative except as stated. Review of Systems: As Per HPI Constitutional: Denies: fever Cardiovascular: Reports: chest pain Respiratory: Denies: cough, dyspnea Gastrointestinal: Denies: abdominal pain, nausea, vomiting Musculoskeletal: Reports: back pain Neurological: Denies: headache Endocrine: Denies: fatigue Past Medical History - Past Medical History Medical history: Reports: arthritis, atrial fibrillation, cancer, coronary artery disease, diabetes, GERD, hypertension, myocardial infarction Surgical history: Reports: angioplasty/stent, cataract, cholecystectomy, coronary bypass (CABG), other Psychiatric history: Reports: no psych history - Social History Smoking Status: Former smoker Smokeless Tobacco Status: No Alcohol use: Reports: none Drug use: Reports: none Physical Exam - General Limitations: no limitations General appearance: alert, in no apparent distress - Head Head exam: atraumatic, normocephalic - Eye Eye exam: Present: EOMI. Absent: scleral icterus, conjunctival injection - ENT ENT exam: normal exam, normal oropharynx - Neck Neck exam: Present: trachea midline. Absent: tenderness, meningismus - Chest Chest inspection: Present: normal inspection, symmetric chest wall rise - Respiratory Respiratory exam: Present: normal lung sounds bilaterally. Absent: respiratory distress - Cardiovascular Cardiovascular exam: Present: regular rate, normal rhythm, normal heart sounds - Abdominal Exam Abdominal exam: Present: soft, Non-Tender. Absent: distention, guarding, rebound, rigidity - Extremities Exam Extremities exam: Present: full ROM. Absent: tenderness - Back Exam Back exam: Present: full ROM - Neurological Exam Neurological exam: Present: alert, oriented X3 - Psychiatric Psychiatric exam: Present: normal affect, normal mood - Skin Skin exam: Present: warm, dry, intact, normal color Course Vital Signs Temperature 98.0 F 10/21/17 19:19 Pulse Rate 93 10/21/17 19:19 Respiratory Rate 16 10/21/17 19:19 Blood Pressure 149/89 10/21/17 19:19 O2 Sat by Pulse Oximetry 95 10/21/17 19:19 Temperature 98.0 F 10/21/17 19:19 Pulse Rate 87 10/21/17 21:33 Respiratory Rate 18 10/21/17 21:33 Blood Pressure 143/84 10/21/17 21:33 O2 Sat by Pulse Oximetry 95 10/21/17 21:33 Oxygen Delivery Oxygen Delivery Room Air Medical Decision Making - MDM Narrative Medical decision making narrative: 72-year-old male presents to the emergency department with concern for back pain radiating over to the left side of his chest, with subjective heart rate going into the 150s. EKG did not reveal any evidence of any abnormality. Patient was in sinus rhythm here. Initial troponin was 0.03. Chest x-ray was normal. We obtained a repeat troponin a couple hours later. This was elevated 0.04. I spoke with patient at bedside and discussed admission as he has an elevated troponin needs further evaluation. I told the patient that the most likely cause for his elevated troponin is most likely demand ischemia, however, because he was not in atrial fibrillation upon arrival here in the emergency department, it was safest to admit him for further observation, trending the troponin, within the hospital. Patient mildly hypokalemic here with a potassium at 3.3. I have her places. Patient agreed with plan. Patient hemodynamically stable and not in any distress at time of admission. Patient was given aspirin here in the emergency department. Chest X-Ray 10/21/17 19:17 IMPRESSION: Stable portable study. D/ / Lashanda Yu Cha, MD / Lashanda Yu Cha, MD Interpreting Provider: Lashanda Yu Cha, MD Vital Signs Temperature 98.0 F 10/21/17 19:19 Pulse Rate 93 10/21/17 19:19 Respiratory Rate 16 10/21/17 19:19 Blood Pressure 149/89 10/21/17 19:19 O2 Sat by Pulse Oximetry 95 10/21/17 19:19 Temperature 98.0 F 10/21/17 19:19 Pulse Rate 87 10/21/17 21:33 Respiratory Rate 18 10/21/17 21:33 Blood Pressure 143/84 10/21/17 21:33 O2 Sat by Pulse Oximetry 95 10/21/17 21:33 Oxygen Delivery Oxygen Delivery Room Air - Lab Data Result diagrams: 10/21/17 19:50 Lab Results 10/21/17 10/21/17 10/21/17 Range/Units 19:50 19:50 19:50 PT 13.8 H (9.4-12.1) Seconds INR 1.3 APTT 37.4 H (26.0-36.0) Seconds Sodium 134 L (136-145) mEq/L Potassium 3.3 L (3.5-5.1) mEq/L Chloride 98 (98-107) mEq/L Carbon Dioxide 22 L (23-29) mEq/L BUN 22 (8-23) mg/dL Creatinine 1.39 H (0.70-1.30) mg/dL Est GFR ( Amer) > 60 (> 60) Est GFR (Non-Af Amer) 51 L (> 60) BUN/Creatinine Ratio 16 (6-26) Glucose 285 H (70-105) mg/dL Calculated Osmolality 292 (280-300) Calcium 9.2 (8.6-10.3) mg/dL Troponin I 0.03 (< 0.04) ng/mL B-Natriuretic Peptide 152 H (Less than 100) pg/mL TSH 4.979 (0.340-5.600) mcIU/mL 10/21/17 Range/Units 21:52 PT (9.4-12.1) Seconds INR APTT (26.0-36.0) Seconds Sodium (136-145) mEq/L Potassium (3.5-5.1) mEq/L Chloride (98-107) mEq/L Carbon Dioxide (23-29) mEq/L BUN (8-23) mg/dL Creatinine (0.70-1.30) mg/dL Est GFR ( Amer) (> 60) Est GFR (Non-Af Amer) (> 60) BUN/Creatinine Ratio (6-26) Glucose (70-105) mg/dL Calculated Osmolality (280-300) Calcium (8.6-10.3) mg/dL Troponin I 0.04 H* (< 0.04) ng/mL B-Natriuretic Peptide (Less than 100) pg/mL TSH (0.340-5.600) mcIU/mL - EKG Data EKG #1 EKG attestation: Yes I reviewed and interpreted this EKG. EKG results narrative: 19:22 Ventricular rate 92 bpm, appearing to 171 ms, QRS duration 194 ms, QT 442 ms, QTC 492 ms, right axis deviation. There are no ischemic ST changes noted on this electrocardiogram. This EKG is the same as the previous one obtained on 10/05/2017.
[2017-10-21] MEDS ORDERED: 0.9 % Sodium Chloride 1,000 ML IVC ONE (22:58)
[2017-10-21] MEDS ORDERED: Aspirin 325 MG TABLET PO ONE (23:08)
[2017-10-22] MEDS ORDERED: Naloxone 0.4 MG/ML INJ IVP PRN (02:46)
[2017-10-22] MEDS ORDERED: Acetaminophen 325 MG TABLET PO PRN (02:46)
--- NOTE | 2017-10-22 04:47 | Internal Med History&Physical ---
Date of Encounter: 10/22/17 Time of Encounter: 05:37 Internal Medicine - H&P: HPI Admitted From: Emergency Dept Plans for Post Hospital Care: Home History of present illness: Mr. Tiwari is a 72 year old male afib, SVT, HTN, NSTEMI, prolonged QT, and DM- II. Pt states around 3: 30 pm today he developed acute onset left shoulder and back discomfort. Pt reports that discomfort is similar to when he has a fib. He checked his HR at home and it was in the 140's. Pt denies chets pain or SOB at this time. at bedside states they where at his physician yesterday and hey where informed every thing was fine. Pt reports bloating and abdominal distention. States he has out pt appointment with [facility] in a week to further evaluate symptoms. In ED Troponin <0.03 then 0.04. CXR no acute disease. EKG. EKG showed SR and no ST or T wave abnormalities. CBC reviewed and hgb 13.4. PT 12.8, INR 1.2. Na 137, K 3.8, BUn 22. Creat 1.22 Past Med Surg Social Fam HX - Past Medical History Medical history: arthritis, atrial fibrillation, cancer, coronary artery disease , diabetes, GERD, hypertension, myocardial infarction Additional medical history: skin cancer Psychiatric history: no psych history - Past Surgical History Surgical History: angioplasty/stent, cataract, cholecystectomy, coronary bypass (CABG), other Additional surgical history: 4 cardiac stents - Social History Smoking Status: Former smoker Smokeless Tobacco Status: No Alcohol use: none Drug use: none - Family History Father Adopted: No Family Member Ethnicity: Non- Living Status: Hx Family Cardiac Disorders: Yes (CAD) Hx Family Endocrine Disorder: Yes (Diabetes) Mother Living Status: Hx Family Endocrine Disorder: Yes (Diabetes) Internal Medicine - H&P: Meds Atorvastatin [Lipitor] 40 mg PO HS 01/01/15 [History] Canagliflozin [Invokana] 300 mg PO QAM 01/01/15 [History] Esomeprazole Magnesium [Nexium] 40 mg PO HS 01/01/15 [History] Isosorbide MONOnitrate (24 HR) [Imdur] 30 mg PO BID 01/01/15 [History] Glimepiride [Amaryl] 4 mg PO DAILY 10/08/15 [History] Clopidogrel [Plavix] 75 mg PO DAILY #30 tablet 01/22/16 [Rx] Fenofibrate Nanocrystallized [Tricor] 48 mg PO DAILY 01/18/17 [History] Gabapentin [Neurontin] 600 mg PO TID 01/18/17 [History] Sitagliptin Phosphate [Januvia] 50 mg PO DAILY 01/18/17 [History] Apixaban [Eliquis] 5 mg PO BID 09/15/17 [History] Bumetanide [Bumex] 1 mg PO DAILY 09/15/17 [History] Finasteride [Proscar] 5 mg PO HS 09/15/17 [History] Potassium Chloride [Klor-Con 10] 10 meq PO BID 09/15/17 [History] Diltiazem CD (24hr) [Cardizem CD] 120 mg PO DAILY #30 cap.er.24h 09/18/17 [Rx] Amiodarone HCl [Pacerone] 200 mg PO DAILY 10/22/17 [History] Esomeprazole Magnesium [Nexium] 40 mg PO DAILY 10/22/17 [History] Fenofibrate 48 mg PO DAILY 10/22/17 [History] Ferrous Fumarate/Ascorbic Acid [April-Sequels 65-25 mg Caplet] 1 each PO DAILY 10/22/17 [History] Finasteride [Proscar] 5 mg PO DAILY 10/22/17 [History] Sucralfate [Carafate] 1 gm PO 0730,1630 10/22/17 [History] 3 Allergy/AdvReac Type Severity Reaction Status Date / Time bacitracin Allergy Intermediate Blister Verified 10/05/17 01:26 [From Neosporin ([id number])] Neomycin Allergy Intermediate Blister Verified 10/05/17 01:26 [From Neosporin ([id number])] polymyxin B Allergy Intermediate Blister Verified 10/05/17 01:26 [From Neosporin ([id number])] azithromycin AdvReac See Verified 10/21/17 19:37 Comments All Systems PM: A 10-system review of systems was performed and is negative for pertinent findings except as documented above in the HPI. - Constitutional Vitals: Temp Pulse Resp BP Pulse Ox 97.9 F 86 18 132/77 94 10/22/17 03:42 10/22/17 03:42 10/22/17 03:42 10/22/17 03:42 10/22/17 03:42 General appearance: Present: A&O X 3, morbidly obese, no acute distress - Head Head exam: Present: atraumatic, normocephalic - Eye Eye exam: Present: PERRL, conjuntiva pink, sclera anicteric Pupils: Present: PERRL - Neck Neck exam general surgery: Present: supple, trachea midline. Absent: lymphadenopathy - Respiratory Respiratory exam: Present: CTAB. Absent: accessory muscle use, rales, rhonchi, wheezes - Cardiovascular Cardiovascular exam: Present: RRR, +S1, +S2. Absent: diastolic murmur, gallop, rubs, systolic murmur - GI/Abdominal GI/Abdominal exam: Present: distended, normal bowel sounds, soft, no peritoneal signs. Absent: tenderness - Extremities Exam Extremities exam: Present: warm, radial pulses palpable and symmetrical. Absent : calf tenderness, cyanotic, pedal edema - Neurological Exam Neurological exam: Present: CN II-XII intact, oriented X3, no focal deficits. Absent: pronater drift, facial droop, speech deficit - Skin Skin exam: Present: dry, intact Internal Med - H&P Results - Labs CBC & Chem 7: 10/22/17 04:12 10/22/17 04:12 Labs: Cardiac Enzymes 10/22/17 Range/Units 01:53 Troponin I 0.05 H* (< 0.04) ng/mL - Assessment and plan (1) Chest pain Current Visit: No Status: Acute Assessment and plan: No chest pain at this time. Cycling troponin. Resuming Plavix and other cardiac meds. Qualifiers: Qualified Code(s): R07.9 - Chest pain, unspecified (2) Coronary artery disease Current Visit: No Status: Chronic Assessment and plan: s/p CABG and stents. On statin and Plavix Qualifiers: Coronary Disease-Associated Artery/Lesion type: [place] artery [place] vs. transplanted heart: quechan heart Associated angina: without angina Qualified Code(s): I25.10 - Atherosclerotic heart disease of [place] coronary artery without angina pectoris (3) Type 2 diabetes mellitus Current Visit: No Status: Chronic Assessment and plan: Will resume home diabetic medication and monitor. On Amaryl and Januvia Qualifiers: Diabetes mellitus longterm insulin use: without longterm use Diabetes mellitus complication status: with unspecified complications Qualified Code(s) : E11.8 - Type 2 diabetes mellitus with unspecified complications (4) PAF (paroxysmal atrial fibrillation) Current Visit: No Status: Chronic Assessment and plan: On Eliquis, Amiodarone, Cardizem. Will monitor on tele overnight. - Time Spent With Patient Total time spent is greater than 50% in coordination of care (as documented) at patient's floor/unit and/or counseling patient: 25 - 35 minutes
[2017-10-22 05:34] LABS: Basophils % 0.5 %; Eosinophils # 0.2 K/mcL (0.0-0.6); Eosinophils % 3.2 %; Hematocrit 39.6 % (37.5-50.1); Hemoglobin 13.4 g/dL (12.9-16.9); Immature Granulocytes % 0.5 % (0-4); Lymphocytes # 1.4 K/mcL (0.6-4.6); Lymphocytes % 21.6 %; Mean Corpuscular HGB Conc 33.8 g/dL (31.6-35.5); Mean Corpuscular Hemoglobin 26.6 pg (28.0-33.3); Mean Corpuscular Volume 78.7 fL (83.0-100.0); Mean Platelet Volume 9.9 fL (9.4-12.4); Monocytes # 0.6 K/mcL (0.0-1.3); Neutrophils # 4.3 K/mcL (1.6-8.9); Platelet Count 200 K/mcL (140-400); Red Blood Count 5.03 M/mcL (4.19-5.50); Red Cell Distribution Width 18.5 % (11.5-14.5); Segmented Neutrophils % 65.2 %
[2017-10-22 05:36] LABS: INR 1.2; Prothrombin Time 12.8 Seconds (9.4-12.1)
[2017-10-22 05:46] LABS: Alanine Aminotransferase 16 Units/L (7-52); Albumin 4.1 g/dL (3.5-5.7); Albumin/Globulin Ratio 1.6 (1.1-2.2); Alkaline Phosphatase 60 Units/L (34-104); Aspartate Amino Transferase 16 Units/L (13-39); BUN/Creatinine Ratio 17 (6-26); Bilirubin,Total 0.9 mg/dL (0.3-1.0); Blood Urea Nitrogen 21 mg/dL (8-23); Calcium 9.2 mg/dL (8.6-10.3); Carbon Dioxide 22 mEq/L (23-29); Chloride 103 mEq/L (98-107); Globulin 2.6 g/dL (2.4-3.5); Glucose 205 mg/dL (70-105); Magnesium 2.2 mg/dL (1.6-2.6); Osmolality,Calculated 293 (280-300); Potassium 3.8 mEq/L (3.5-5.1); Sodium 137 mEq/L (136-145); Total Protein 6.7 g/dL (6.4-8.9); eGFR For African Americans > 60 (> 60); eGFR For Non-African Americans 59 (> 60)
[2017-10-22 07:02] VITALS: BP 148/88
[2017-10-22] MEDS ORDERED: Sucralfate 1 GM TABLET PO SCH (07:30)
[2017-10-22] MEDS ORDERED: (Canagliflozin [Invokana] 300 MG) PO SCH (09:00)
[2017-10-22] MEDS ORDERED: Isosorbide MONOnitrate (24 HR) 30 MG TAB.ER.24H PO SCH (09:00)
[2017-10-22] MEDS ORDERED: Aspirin 81 MG TAB.CHEW PO SCH (09:00)
[2017-10-22] MEDS ORDERED: Finasteride 5 MG TABLET PO SCH (09:00)
[2017-10-22] MEDS ORDERED: Gabapentin 300 MG CAPSULE PO SCH (09:00)
[2017-10-22] MEDS ORDERED: *HR* SitaGLIPtin 25 MG TABLET PO SCH (09:00)
[2017-10-22] MEDS ORDERED: *HR* Glimepiride 4 MG TABLET PO SCH (09:00)
[2017-10-22] MEDS ORDERED: Apixaban 5 MG TABLET PO SCH (09:00)
[2017-10-22] MEDS ORDERED: Bumetanide 1 MG TABLET PO SCH (09:00)
[2017-10-22] MEDS ORDERED: *HR* Amiodarone 200 MG TABLET PO SCH (09:00)
[2017-10-22] MEDS ORDERED: Fenofibrate 54 MG TABLET PO SCH (09:00)
[2017-10-22] MEDS ORDERED: Diltiazem CD (24hr) 120 MG CAPSULE PO SCH (09:00)
--- NOTE | 2017-10-22 10:03 | Discharge Summary ---
- NOTES TO OUTPATIENT PROVIDER Notes to Outpatient Provider: Patient presented with some mild shortness of breath, was found to be in A. fib RVR. History of A. fib. Patient will have mildly elevated troponin, peaked at 0.05. Positive because by demand ischemia with A. fib RVR. Troponins adynamic throughout stay. No ECG changes concerning for ischemia. Patient taking aspirin, statin, Plavix, eliquis, amiodarone, Cardizem. Last 12 hour review of heart rate shows HR in the 80s. He was dynamically stable. Patient instructed to follow-up with PCP within 1 week of discharge. No workup pending. Date of Encounter: 10/22/17 Time of Encounter: 10:01 - Discharge Diagnosis (1) Chest pain Priority: Primary Status: Acute Assessment and Plan: Patient had left shoulder and back discomfort; reports that he often experiences this with A. fib RVR Found to be in A. fib RVR Has never had any chest pain throughout stay, no shortness of breath. Per my review ECG without changes from baseline Patient normal sinus rhythm, average rate in the 80s Per auscultation S1-S2 and regular Serial troponins obtained, mild troponin elevation, 0.04, 0.05, 0.05; these remain adynamic and are likely elevated due 2/2 demand ischemia in the setting of A. fib with RVR Recent TTE 09/16/17 with the following findings- LVEF 40-45%. Mildly dilated left ventricle. Moderate left ventricular diastolic dysfunction. Atypical septal motion consistent with post-operative status. Normal right ventricular structure and function. Mild mitral regurgitation. No evidence of pulmonary hypertension Uneventful hospital course, remains medically stable, medically stable and ready for discharge. Patient has been instructed to follow-up with PCP within 1 week of discharge. Additionally, has been instructed to return to the ED should tachycardia and/or chest pain return. Patient verbalized understanding, denies any further questions at this time. Patient has a follow-up appointment with cardiology and will keep this appointment. Qualifiers: Chest pain type: unspecified Qualified Code(s): R07.9 - Chest pain, unspecified (2) Troponin level elevated Priority: Secondary Status: Acute Assessment and Plan: Elevated troponin in the setting of A. fib with RVR. Likely to/2 demand ischemia Troponins adynamic throughout stay, 0.04, 0.05, 0.05 Patient does not have any chest pain, per my review of ECG, no ECG changes concerning for ischemia when compared to prior ECG (3) PAF (paroxysmal atrial fibrillation) Priority: Secondary Status: Chronic Assessment and Plan: History of PAF On aspirin, statin, Plavix, eliquis, amiodarone and Cardizem Admitted with Nika ernst RVR, now normal sinus rhythm average rate in the 80s Per auscultation S1, S2 and regular (4) Type 2 diabetes mellitus Priority: Secondary Status: Chronic Assessment and Plan: History of DM 2 Resume diabetic medications at DC Qualifiers: Diabetes mellitus intermodal dispatcher insulin use: without intermodal dispatcher use Diabetes mellitus complication status: with unspecified complications Qualified Code(s) : E11.8 - Type 2 diabetes mellitus with unspecified complications Hospital course: Mr. Tiwari is a 72 year old male Please see assessment and plan for hospital course Discharge discussed with: patient, family, nurse - Time Spent with Patient Total time spent providing and/or coordinating discharge services: Less than 30 minutes - Discharge Medications Home Medications: Atorvastatin [Lipitor] 40 mg PO HS 01/01/15 [History] Canagliflozin [Invokana] 300 mg PO QAM 01/01/15 [History] Isosorbide MONOnitrate (24 HR) [Imdur] 30 mg PO BID 01/01/15 [History] Glimepiride [Amaryl] 4 mg PO DAILY 10/08/15 [History] Clopidogrel [Plavix] 75 mg PO DAILY #30 tablet 01/22/16 [Rx] Gabapentin [Neurontin] 600 mg PO TID 01/18/17 [History] Sitagliptin Phosphate [Januvia] 50 mg PO DAILY 01/18/17 [History] Apixaban [Eliquis] 5 mg PO BID 09/15/17 [History] Bumetanide [Bumex] 1 mg PO DAILY 09/15/17 [History] Finasteride [Proscar] 5 mg PO HS 09/15/17 [History] Potassium Chloride [Klor-Con 10] 10 meq PO BID 09/15/17 [History] Diltiazem CD (24hr) [Cardizem CD] 120 mg PO DAILY #30 cap.er.24h 09/18/17 [Rx] Amiodarone HCl [Pacerone] 200 mg PO DAILY 10/22/17 [History] Aspirin 81 mg PO DAILY #0 tab.chew 10/22/17 [Rx] Esomeprazole Magnesium [Nexium] 40 mg PO DAILY 10/22/17 [History] Fenofibrate 48 mg PO DAILY 10/22/17 [History] Ferrous Fumarate/Ascorbic Acid [April-Sequels 65-25 mg Caplet] 1 each PO DAILY 10/22/17 [History] Sucralfate [Carafate] 1 gm PO 0730,1630 10/22/17 [History] Allergies/Adverse Reactions: 3 Allergy/AdvReac Type Severity Reaction Status Date / Time bacitracin Allergy Intermediate Blister Verified 10/05/17 01:26 [From Neosporin ([id number])] Neomycin Allergy Intermediate Blister Verified 10/05/17 01:26 [From Neosporin ([id number]-fgy-[id number])] polymyxin B Allergy Intermediate Blister Verified 10/05/17 01:26 [From Neosporin ([id number])] azithromycin AdvReac See Verified 10/21/17 19:37 Comments Date of admission: 10/21/17 23:21 Primary care physician: Aureliano Salamanca MD Discharging clinician: Juvenal Zhou Anticipated date of discharge: 10/22/17 - Constitutional Vitals: Temp Pulse Resp BP Pulse Ox 97.7 F 88 18 148/88 94 10/22/17 07:01 10/22/17 07:01 10/22/17 07:01 10/22/17 07:01 10/22/17 07:01 General appearance: Present: A&O X 3, morbidly obese, no acute distress - Head Head exam: Present: atraumatic, normocephalic - Eye Eye exam: Present: PERRL, conjuntiva pink, sclera anicteric Pupils: Present: PERRL - Neck Neck exam general surgery: Present: supple, trachea midline. Absent: lymphadenopathy - Respiratory Respiratory exam: Present: CTAB. Absent: accessory muscle use, rales, rhonchi, wheezes - Cardiovascular Cardiovascular exam: Present: RRR, +S1, +S2. Absent: diastolic murmur, gallop, rubs, systolic murmur - GI/Abdominal GI/Abdominal exam: Present: normal bowel sounds, soft, no peritoneal signs. Absent: distended, tenderness - Extremities Exam Extremities exam: Present: warm, radial pulses palpable and symmetrical. Absent : calf tenderness, cyanotic, pedal edema - Neurological Exam Neurological exam: Present: CN II-XII intact, oriented X3, no focal deficits. Absent: pronater drift, facial droop, speech deficit - Skin Skin exam: Present: dry, intact - Patient Status Disposition: Home, Self-Care Condition: Good Functional capacity at discharge: independent ambulation Overall status at discharge: patient is back to baseline - Discharge Instructions Instructions: Chest Pain (DC), Atrial Fibrillation (DC) Follow Up With: Aureliano Salamanca MD [Primary Care Provider] - - Diet and Activity Activity: resume usual activities as tolerated Diet: advance to your usual diet, diabetic diet, low fat, low cholesterol
--- NOTE | 2017-10-24 09:30 | Electrocardiograph Report ---
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
== END 2017-10-22 11:30 | disposition home or self-care (01) ==
LOC: 3BNU 19:13 → EMEROO 19:13 → 3NENU 19:13 → 3BNU 10-22 00:07
PROVIDERS: ADMIT Internal Medicine; ATTEND Pediatrics

== ENCOUNTER 2017-11-06 07:27 | Observation (INO) ==
[2017-11-06] MEDS ORDERED: GI Cocktail 40 ML EACH PO ONE (07:54)
[2017-11-06 08:04] LABS: Basophils # 0.1 K/mcL (0.0-0.2); Basophils % 0.8 %; Eosinophils # 0.1 K/mcL (0.0-0.6); Hematocrit 40.6 % (37.5-50.1); Hemoglobin 13.9 g/dL (12.9-16.9); Immature Granulocytes % 0.5 % (0-4); Lymphocytes # 1.1 K/mcL (0.6-4.6); Lymphocytes % 17.1 %; Mean Corpuscular HGB Conc 34.2 g/dL (31.6-35.5); Mean Corpuscular Hemoglobin 27.5 pg (28.0-33.3); Mean Corpuscular Volume 80.2 fL (83.0-100.0); Mean Platelet Volume 9.4 fL (9.4-12.4); Monocytes # 0.4 K/mcL (0.0-1.3); Monocytes % 5.6 %; Neutrophils # 4.9 K/mcL (1.6-8.9); Platelet Count 208 K/mcL (140-400); Red Blood Count 5.06 M/mcL (4.19-5.50); Red Cell Distribution Width 18.8 % (11.5-14.5)
--- NOTE | 2017-11-06 08:09 | Emergency Department Note ---
Disposition Clinical Impression: Abdominal pain Qualifiers: Abdominal location: left upper quadrant Qualified Code(s): R10.12 - Left upper quadrant pain Disposition: Still a Patient Referrals: Aureliano Salamanca MD [Primary Care Provider] - General Adult HPI - General Chief complaint: ED Abdominal Pain Stated complaint: "abd bloating, cant sleep" Time Seen by Provider: 11/06/17 07:35 - History of Present Illness Pain Scale: 6 - Related Data Home Medications Medication Instructions Recorded Confirmed Atorvastatin [Lipitor] 40 mg PO HS 01/01/15 10/22/17 Canagliflozin [Invokana] 300 mg PO QAM 01/01/15 10/22/17 Isosorbide MONOnitrate (24 HR) 30 mg PO BID 01/01/15 10/22/17 [Imdur] Glimepiride [Amaryl] 4 mg PO DAILY 10/08/15 10/22/17 Gabapentin [Neurontin] 600 mg PO TID 01/18/17 10/22/17 Sitagliptin Phosphate [Januvia] 50 mg PO DAILY 01/18/17 10/22/17 Apixaban [Eliquis] 5 mg PO BID 09/15/17 10/22/17 Bumetanide [Bumex] 1 mg PO DAILY 09/15/17 10/22/17 Finasteride [Proscar] 5 mg PO HS 09/15/17 10/22/17 Potassium Chloride [Klor-Con 10] 10 meq PO BID 09/15/17 10/22/17 Amiodarone HCl [Pacerone] 200 mg PO DAILY 10/22/17 10/22/17 Esomeprazole Magnesium [Nexium] 40 mg PO DAILY 10/22/17 10/22/17 Fenofibrate 48 mg PO DAILY 10/22/17 10/22/17 Ferrous Fumarate/Ascorbic Acid 1 each PO DAILY 10/22/17 10/22/17 [April-Sequels 65-25 mg Caplet] Sucralfate [Carafate] 1 gm PO 0730,1630 10/22/17 10/22/17 Previous Rx's Medication Instructions Recorded Clopidogrel [Plavix] 75 mg PO DAILY #30 tablet 01/22/16 Diltiazem CD (24hr) [Cardizem CD] 120 mg PO DAILY #30 cap.er.24h 09/18/17 Aspirin 81 mg PO DAILY #0 tab.chew 10/22/17 Allergies Allergy/AdvReac Type Severity Reaction Status Date / Time bacitracin Allergy Intermediate Blister Verified 10/05/17 01:26 [From Neosporin ([id number])] Neomycin Allergy Intermediate Blister Verified 10/05/17 01:26 [From Neosporin ([id number]-bal-[id number])] polymyxin B Allergy Intermediate Blister Verified 10/05/17 01:26 [From Neosporin ([id number]-[id number])] azithromycin AdvReac See Verified 10/21/17 19:37 Comments Past Medical History - Past Medical History Medical history: Reports: arthritis, atrial fibrillation, cancer, coronary artery disease, diabetes, GERD, hypertension, myocardial infarction Surgical history: Reports: angioplasty/stent, cataract, cholecystectomy, coronary bypass (CABG), other Psychiatric history: Reports: no psych history - Social History Smoking Status: Former smoker Smokeless Tobacco Status: No Alcohol use: Reports: none Drug use: Reports: none Physical Exam - General General appearance: alert, in no apparent distress Course - Reevaluation(s) Reevaluation #1: Attestation note I examined this patient and my medical decision-making was reviewed with the emergency medicine resident. I agree with the documented findings, disposition and treatment plan as described except to the extent set forth below. Patient seen with emergency medicine resident Dr. Louie Tafoya, Please see a copy of his note for details of the H&P, ED evaluation, management and disposition. I have independently evaluated the patient and confirmed appropriate portions of the history and physical exam. Briefly: 72-year-old male comes in with left upper quadrant bloating and epigastric burning feeling substernally. Patient was just C by urology [place] and prescribed P note for intestinal gas. Patient is continuing symptoms does have a long cardiac history patient's EKG shows a bundle branch block which is old no acute ischemic changes physical examination is essentially benign abdomen nonsurgical patient will get a chest x-ray troponin screening labs. Patient will schedule cocktail. Disposition pending. Time: 08:08 Vital Signs Pulse Rate 89 11/06/17 07:28 Respiratory Rate 20 11/06/17 07:28 Blood Pressure 159/79 11/06/17 07:28 O2 Sat by Pulse Oximetry 95 11/06/17 07:28 Temperature 98.0 F 11/06/17 07:43 Pulse Rate 75 11/06/17 08:01 Respiratory Rate 15 11/06/17 08:01 Blood Pressure 122/65 11/06/17 08:01 O2 Sat by Pulse Oximetry 94 11/06/17 08:01 Oxygen Delivery Oxygen Delivery Room Air Medical Decision Making - Lab Data Result diagrams: 11/06/17 07:54 Lab Results 11/06/17 Range/Units 07:54 WBC 6.6 (4.3-11.1) K/mcL RBC 5.06 (4.19-5.50) M/mcL Hgb 13.9 (12.9-16.9) g/dL Hct 40.6 (37.5-50.1) % MCV 80.2 L (83.0-100.0) fL MCH 27.5 L (28.0-33.3) pg MCHC 34.2 (31.6-35.5) g/dL RDW 18.8 H (11.5-14.5) % Plt Count 208 (140-400) K/mcL MPV 9.4 (9.4-12.4) fL Immature Gran % 0.5 (0-4) % Seg Neutrophils % 74.0 % Lymphocytes % 17.1 % Monocytes % 5.6 % Eosinophils % 2.0 % Basophils % 0.8 % Neutrophils # 4.9 (1.6-8.9) K/mcL Lymphocytes # 1.1 (0.6-4.6) K/mcL Monocytes # 0.4 (0.0-1.3) K/mcL Eosinophils # 0.1 (0.0-0.6) K/mcL Basophils # 0.1 (0.0-0.2) K/mcL
--- NOTE | 2017-11-06 08:10 | Emergency Department Note ---
Disposition Clinical Impression: Abdominal pain Qualifiers: Abdominal location: left upper quadrant Qualified Code(s): R10.12 - Left upper quadrant pain Pneumonia Qualifiers: Pneumonia type: due to unspecified organism Laterality: right Lung location: lower lobe of lung Qualified Code(s): J18.1 - Lobar pneumonia, unspecified organism Chest pain Qualifiers: Chest pain type: unspecified Qualified Code(s): R07.9 - Chest pain, unspecified Disposition: Admitted As Inpatient Condition: Good Instructions: Abdominal Pain (ED), Pneumonia (ED) Reasons to Return/Additional Instructions: Please follow up with your primary care provider at the next available appointment. I have provided information to the [facility]. Please return to the emergency department if you have any worsening of your symptoms including worsening of your abdominal pain, chest pain, shortness of breath, fever, chills, vomiting, diarrhea, changes in mentation or any other symptoms that may be concerning to you. Please take all medications as prescribed. Referrals: Aureliano Salamanca MD [Primary Care Provider] - [facility] [Outside] Forms: ED Satisfaction Letter, Work/School Release Time of Disposition: 09:30 Abdominal Pain HPI - General Chief Complaint: ED Abdominal Pain Stated Complaint: "abd bloating, cant sleep" Time Seen by Provider: 11/06/17 07:35 Source: patient Mode of arrival: ambulatory Limitations: no limitations Nursing Notes Reviewed: Yes Vital Signs Reviewed: Yes - History of Present Illness HPI Narrative: Patient is a 72-year-old male that presents the emergency department with left upper quadrant abdominal pain and a burning sensation going substernally into the back of his throat. Patient states that he was seen by gastroenterology a couple days ago and was told to use Beano but this is been unsuccessful. Patient states that this pain and discomfort has been present for approximately one month that is been worse over the past week. Patient states that he has not been able to sleep due to the discomfort. Patient states that this does not feel like his previous heart attacks. Patient states that he will occasionally get a bad taste in the back of his mouth. Patient denies any radiation of his pain. Patient states that he has had some mild shortness of breath due to the discomfort. Pain Scale: 6 - Related Data Home Medications Medication Instructions Recorded Confirmed Atorvastatin [Lipitor] 40 mg PO HS 01/01/15 10/22/17 Canagliflozin [Invokana] 300 mg PO QAM 01/01/15 10/22/17 Isosorbide MONOnitrate (24 HR) 30 mg PO BID 01/01/15 10/22/17 [Imdur] Glimepiride [Amaryl] 4 mg PO DAILY 10/08/15 10/22/17 Gabapentin [Neurontin] 600 mg PO TID 01/18/17 10/22/17 Sitagliptin Phosphate [Januvia] 50 mg PO DAILY 01/18/17 10/22/17 Apixaban [Eliquis] 5 mg PO BID 09/15/17 10/22/17 Bumetanide [Bumex] 1 mg PO DAILY 09/15/17 10/22/17 Finasteride [Proscar] 5 mg PO HS 09/15/17 10/22/17 Potassium Chloride [Klor-Con 10] 10 meq PO BID 09/15/17 10/22/17 Amiodarone HCl [Pacerone] 200 mg PO DAILY 10/22/17 10/22/17 Esomeprazole Magnesium [Nexium] 40 mg PO DAILY 10/22/17 10/22/17 Fenofibrate 48 mg PO DAILY 10/22/17 10/22/17 Ferrous Fumarate/Ascorbic Acid 1 each PO DAILY 10/22/17 10/22/17 [April-Sequels 65-25 mg Caplet] Sucralfate [Carafate] 1 gm PO 0730,1630 10/22/17 10/22/17 Previous Rx's Medication Instructions Recorded Clopidogrel [Plavix] 75 mg PO DAILY #30 tablet 01/22/16 Diltiazem CD (24hr) [Cardizem CD] 120 mg PO DAILY #30 cap.er.24h 09/18/17 Aspirin 81 mg PO DAILY #0 tab.chew 10/22/17 Allergies Allergy/AdvReac Type Severity Reaction Status Date / Time bacitracin Allergy Intermediate Blister Verified 10/05/17 01:26 [From Neosporin ([id number])] Neomycin Allergy Intermediate Blister Verified 10/05/17 01:26 [From Neosporin ([id number])] polymyxin B Allergy Intermediate Blister Verified 10/05/17 01:26 [From Neosporin ([id number]-[id number]-[id number])] azithromycin AdvReac See Verified 10/21/17 19:37 Comments All systems ED: reviewed and negative except as stated. Cardiovascular: Reports: chest pain Respiratory: Reports: dyspnea Gastrointestinal: Reports: abdominal pain Abdominal Pain PMH - Past Medical History Medical history: Reports: arthritis, atrial fibrillation, cancer, coronary artery disease, diabetes, GERD, hypertension, myocardial infarction Male Surgical History: Reports: coronary bypass (CABG), other Psychiatric history: Reports: no psych history - Social History Smoking status: Former smoker Alcohol use: Reports: none Drug use: Reports: none Physical Exam - General Limitations: no limitations General appearance: alert, in no apparent distress - Head Head exam: atraumatic, normocephalic - Eye Eye exam: Present: normal appearance, EOMI - Neck Neck exam: Present: normal inspection, full ROM, trachea midline - Respiratory Respiratory exam: Present: normal lung sounds bilaterally. Absent: respiratory distress, wheezes - Cardiovascular Cardiovascular exam: Present: regular rate, normal rhythm, normal heart sounds, +S1, +S2 - Abdominal Exam Abdominal exam: Present: soft, tenderness (LUQ), normal bowel sounds - Neurological Exam Neurological exam: Present: alert, oriented X3 - Psychiatric Psychiatric exam: Present: normal affect, normal mood - Skin Skin exam: Present: warm, dry, intact Course - Reevaluation(s) Reevaluation #1: Patient was found to have right lower lobe airspace disease possibly consistent with pneumonia. We will obtain a lateral view to confirm this diagnosis. Time: 08:36 Reevaluation #2: Patient states that his abdominal pain and burning sensation in the some syringe have completely resolved is having no active pain at this time. Time: 09:19 Reevaluation #3: The patient has a heart score of 4. After discussion with the patient he has decided to be admitted to the hospital. Patient will be admitted for treatment of his pneumonia and ACS rule out. Time: 09:24 - Consultations Consultation #1: Called and spoke with the admitting hospitalist Dr. Young and he has accepted the patient to their service. The patient be admitted to the hospital this time for further evaluation and management. Vital Signs Pulse Rate 89 11/06/17 07:28 Respiratory Rate 20 11/06/17 07:28 Blood Pressure 159/79 11/06/17 07:28 O2 Sat by Pulse Oximetry 95 11/06/17 07:28 Temperature 98.0 F 11/06/17 07:43 Pulse Rate 81 11/06/17 08:41 Respiratory Rate 17 11/06/17 08:41 Blood Pressure 147/65 11/06/17 08:41 O2 Sat by Pulse Oximetry 94 11/06/17 08:41 Oxygen Delivery Oxygen Delivery Room Air Abdominal Pain - MDM Narrative Medical decision making narrative: Due to the patient presenting with upper abdominal pain radiating into his chest with a extensive cardiac history there is concern that there could be potential cardiac involvement. We will obtain a cardiac workup including a CBC , BMP, troponin chest x-ray and EKG. We will also provide the patient with a GI cocktail here in the emergency department. Patient's troponin was negative, EKG did not show any acute ischemic changes. The remainder of the patient's laboratory testing was unremarkable. The patient is afebrile here in the emergency department does not have an elevated white count. Patient was found to have a pneumonia on chest x-ray. Due to the patient having sensitivity to antibiotics and being on amiodarone and having a prolonged QT in the past due to antibiotic therapy. We will hold off on any antibiotics at this time due to the patient being afebrile and not having an elevated white count. Due to the patient having a heart score of 4. I discussed this with the patient and recommended admission due to the patient having extensive cardiac history. The patient will be admitted to the hospital for pneumonia and ACS rule out. I called and spoke with the admitting hospitalist and they have accepted the patient to their service. Patient admitted to the hospital this time for further evaluation and management. - Lab Data Lab results reviewed: Yes I reviewed the patient's lab results. Result diagrams: 11/06/17 07:54 11/06/17 07:54 Lab Results 11/06/17 11/06/17 Range/Units 07:54 07:54 WBC 6.6 (4.3-11.1) K/mcL RBC 5.06 (4.19-5.50) M/mcL Hgb 13.9 (12.9-16.9) g/dL Hct 40.6 (37.5-50.1) % MCV 80.2 L (83.0-100.0) fL MCH 27.5 L (28.0-33.3) pg MCHC 34.2 (31.6-35.5) g/dL RDW 18.8 H (11.5-14.5) % Plt Count 208 (140-400) K/mcL MPV 9.4 (9.4-12.4) fL Immature Gran % 0.5 (0-4) % Seg Neutrophils % 74.0 % Lymphocytes % 17.1 % Monocytes % 5.6 % Eosinophils % 2.0 % Basophils % 0.8 % Neutrophils # 4.9 (1.6-8.9) K/mcL Lymphocytes # 1.1 (0.6-4.6) K/mcL Monocytes # 0.4 (0.0-1.3) K/mcL Eosinophils # 0.1 (0.0-0.6) K/mcL Basophils # 0.1 (0.0-0.2) K/mcL Sodium 136 (136-145) mEq/L Potassium 3.5 (3.5-5.1) mEq/L Chloride 101 (98-107) mEq/L Carbon Dioxide 25 (23-29) mEq/L BUN 19 (8-23) mg/dL Creatinine 1.23 (0.70-1.30) mg/dL Est GFR ( Amer) > 60 (> 60) Est GFR (Non-Af Amer) 58 L (> 60) BUN/Creatinine Ratio 15 (6-26) Glucose 228 H (70-105) mg/dL Calculated Osmolality 291 (280-300) Calcium 9.5 (8.6-10.3) mg/dL Troponin I < 0.03 (< 0.04) ng/mL - Radiology Data Radiology results reviewed: Yes I reviewed the patient's radiology results. Chest X-Ray 11/06/17 08:36 IMPRESSION: Mild right lower lobe airspace disease with associated small right pleural effusion. D/ / 11/06/2017 09:23:44 Vazquez Ellsworth MD / [facility] Interpreting Provider: Vazquez Ellsworth MD - EKG Data EKG attestation: Yes I reviewed and interpreted this EKG. EKG results narrative: EKG shows a sinus rhythm at a rate of 81 bpm, ID interval of 186, QRS duration of 205, QTC of 526. There is evidence of a right bundle branch block present on EKG. This is compared to previous EKG on 10/21/17 which showed a sinus rhythm with a right bundle branch block at a rate of 93 bpm. No STEMI is noted on EKG.
[2017-11-06 08:25] LABS: BUN/Creatinine Ratio 15 (6-26); Blood Urea Nitrogen 19 mg/dL (8-23); Calcium 9.5 mg/dL (8.6-10.3); Carbon Dioxide 25 mEq/L (23-29); Chloride 101 mEq/L (98-107); Glucose 228 mg/dL (70-105); Osmolality,Calculated 291 (280-300); Potassium 3.5 mEq/L (3.5-5.1); Sodium 136 mEq/L (136-145); eGFR For African Americans > 60 (> 60); eGFR For Non-African Americans 58 (> 60)
[2017-11-06 08:26] LABS: Troponin I < 0.03 ng/mL (< 0.04)
[2017-11-06] MEDS ORDERED: Naloxone 0.4 MG/ML INJ IVP PRN (10:27)
[2017-11-06] MEDS ORDERED: Nitroglycerin 0.4 MG TAB.SUBL SL SCH (10:29)
--- NOTE | 2017-11-06 10:34 | Internal Med History&Physical ---
Date of Encounter: 11/06/17 Time of Encounter: 10:00 Internal Medicine - H&P: HPI Chief complaint: Left upper quadrant abdominal pain Admitted From: Home Plans for Post Hospital Care: Home History of present illness: Mr. Tiwari is a 72 year old male came into the emergency department left upper quadrant abdominal pain and burning sensation. 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 Patient denied any chest pain per se. Denies any nausea or vomiting. Patient was given GI cocktail in the emergency department and his pain subsided. Patient had significant past medical history cardiac history He was admitted for observation to rule out any cardiac cause. On my interviewing the patient denied any pain or other complaints. Past Med Surg Social Fam HX - Past Medical History Medical history: arthritis, atrial fibrillation, cancer, coronary artery disease , diabetes, GERD, hypertension, myocardial infarction Additional medical history: skin cancer Psychiatric history: no psych history - Past Surgical History Surgical History: angioplasty/stent, cataract, cholecystectomy, coronary bypass (CABG), other Additional surgical history: 4 cardiac stents - Social History Smoking Status: Former smoker Smokeless Tobacco Status: No Alcohol use: none Drug use: none - Family History Father Adopted: No Family Member Ethnicity: Non- Living Status: Hx Family Cardiac Disorders: Yes (CAD) Hx Family Endocrine Disorder: Yes (Diabetes) Mother Living Status: Hx Family Endocrine Disorder: Yes (Diabetes) Internal Medicine - H&P: Meds Atorvastatin [Lipitor] 40 mg PO HS 01/01/15 [History] Canagliflozin [Invokana] 300 mg PO QAM 01/01/15 [History] Isosorbide MONOnitrate (24 HR) [Imdur] 30 mg PO BID 01/01/15 [History] Glimepiride [Amaryl] 4 mg PO DAILY 10/08/15 [History] Clopidogrel [Plavix] 75 mg PO DAILY #30 tablet 01/22/16 [Rx] Gabapentin [Neurontin] 600 mg PO TID 01/18/17 [History] Sitagliptin Phosphate [Januvia] 50 mg PO DAILY 01/18/17 [History] Apixaban [Eliquis] 5 mg PO BID 09/15/17 [History] Bumetanide [Bumex] 1 mg PO DAILY 09/15/17 [History] Finasteride [Proscar] 5 mg PO HS 09/15/17 [History] Potassium Chloride [Klor-Con 10] 10 meq PO BID 09/15/17 [History] Diltiazem CD (24hr) [Cardizem CD] 120 mg PO DAILY #30 cap.er.24h 09/18/17 [Rx] Amiodarone HCl [Pacerone] 200 mg PO DAILY 10/22/17 [History] Esomeprazole Magnesium [Nexium] 40 mg PO DAILY 10/22/17 [History] Fenofibrate 48 mg PO DAILY 10/22/17 [History] Ferrous Fumarate/Ascorbic Acid [April-Sequels 65-25 mg Caplet] 1 tab PO DAILY [History] Sucralfate [Carafate] 1 gm PO 0730,1630 10/22/17 [History] Nitroglycerin [Nitroglycerin] 1 - 2 spray NS AD PRN 11/06/17 [History] 3 Allergy/AdvReac Type Severity Reaction Status Date / Time bacitracin Allergy Intermediate Blister Verified 11/06/17 09:57 [From Neosporin ([id number])] Neomycin Allergy Intermediate Blister Verified 11/06/17 09:57 [From Neosporin ([id number]-ndv-[id number])] polymyxin B Allergy Intermediate Blister Verified 11/06/17 09:57 [From Neosporin ([id number])] azithromycin AdvReac See Verified 11/06/17 09:57 Comments All Systems PM: A 10-system review of systems was performed and is negative for pertinent findings except as documented above in the HPI. - Constitutional Vitals: Temp Pulse Resp BP Pulse Ox 98.0 F 76 22 140/95 94 11/06/17 07:43 11/06/17 09:57 11/06/17 09:57 11/06/17 09:57 11/06/17 09:57 - Head Head exam: Present: atraumatic, normocephalic - Eye Eye exam: Present: PERRL, conjuntiva pink, sclera anicteric Pupils: Present: PERRL - Neck Neck exam general surgery: Present: supple, trachea midline. Absent: lymphadenopathy - Respiratory Respiratory exam: Present: CTAB. Absent: accessory muscle use, rales, rhonchi, wheezes - Cardiovascular Cardiovascular exam: Present: RRR, +S1, +S2. Absent: diastolic murmur, gallop, rubs, systolic murmur - GI/Abdominal GI/Abdominal exam: Present: normal bowel sounds, soft, no peritoneal signs. Absent: distended, tenderness - Extremities Exam Extremities exam: Present: warm, radial pulses palpable and symmetrical. Absent : calf tenderness, cyanotic, pedal edema - Neurological Exam Neurological exam: Present: CN II-XII intact, oriented X3, no focal deficits. Absent: pronater drift, facial droop, speech deficit - Skin Skin exam: Present: dry, intact Internal Med - H&P Results - Labs CBC & Chem 7: 11/06/17 07:54 11/06/17 07:54 - Assessment and plan (1) Abdominal pain Current Visit: Yes Status: Acute Assessment and plan: resolved Patient probably has peptic ulcer disease and a scheduled for EGD as an outpatient Need to rule out cardiac syndrome Will get serial troponin every 6 hours for 3 sets Fasting lipid profile. Telemetry monitoring Continue with PPI and Carafate To follow up with GI as an outpatient Qualifiers: Qualified Code(s): R10.9 - Unspecified abdominal pain (2) Coronary artery disease Current Visit: No Status: Chronic Assessment and plan: Continue with medications as ordered Qualifiers: Coronary Disease-Associated Artery/Lesion type: [place] artery [place] vs. transplanted heart: [place] heart Associated angina: without angina Qualified Code(s): I25.10 - Atherosclerotic heart disease of [place] coronary artery without angina pectoris (3) PAF (paroxysmal atrial fibrillation) Current Visit: No Status: Chronic (4) Sleep apnea Current Visit: Yes Status: Acute Assessment and plan: Patient most likely has underlying obstructive sleep apnea was not officially diagnosed Recommended to get sleep study/PSG as an outpatient. Patient is agreeable Qualifiers: Qualified Code(s): G47.30 - Sleep apnea, unspecified (5) On esomeprazole prophylaxis Current Visit: Yes Status: Acute (6) DVT prophylaxis Current Visit: Yes Status: Acute Assessment and plan: Already on anticoagulation - Time Spent With Patient Total time spent is greater than 50% in coordination of care (as documented) at patient's floor/unit and/or counseling patient:
[2017-11-06] MEDS: Gabapentin 300 MG CAPSULE PO SCH ×2 (13:42→20:18)
[2017-11-06] MEDS: Pantoprazole 40 MG VIAL IVP SCH (16:35)
[2017-11-06] MEDS: Sucralfate 1 GM TABLET PO SCH (16:35)
[2017-11-06] MEDS: Apixaban 5 MG TABLET PO SCH (20:18)
[2017-11-06] MEDS: Isosorbide MONOnitrate (24 HR) 30 MG TAB.ER.24H PO SCH (20:19)
[2017-11-06] MEDS ORDERED: Finasteride 5 MG TABLET PO SCH (21:00)
[2017-11-07 04:29] LABS: Basophils % 0.5 %; Eosinophils # 0.1 K/mcL (0.0-0.6); Eosinophils % 1.6 %; Hematocrit 40.8 % (37.5-50.1); Hemoglobin 13.6 g/dL (12.9-16.9); Immature Granulocytes % 0.5 % (0-4); Lymphocytes % 11.8 %; Mean Corpuscular HGB Conc 33.3 g/dL (31.6-35.5); Mean Corpuscular Hemoglobin 27.1 pg (28.0-33.3); Mean Corpuscular Volume 81.4 fL (83.0-100.0); Mean Platelet Volume 9.6 fL (9.4-12.4); Monocytes # 0.5 K/mcL (0.0-1.3); Monocytes % 5.9 %; Neutrophils # 6.8 K/mcL (1.6-8.9); Platelet Count 213 K/mcL (140-400); Red Blood Count 5.01 M/mcL (4.19-5.50); Red Cell Distribution Width 18.7 % (11.5-14.5); Segmented Neutrophils % 79.7 %
[2017-11-07] MEDS: Pantoprazole 40 MG VIAL IVP SCH (05:51)
[2017-11-07 06:09] LABS: BUN/Creatinine Ratio 14 (6-26); Blood Urea Nitrogen 18 mg/dL (8-23); Calcium 9.2 mg/dL (8.6-10.3); Carbon Dioxide 25 mEq/L (23-29); Chloride 103 mEq/L (98-107); Chol/HDL Ratio 3.6 (0-4.9); Cholesterol 120 mg/dL (< 200); Glucose 203 mg/dL (70-105); HDL Cholesterol 33 mg/dL (40-59); LDL Cholesterol,Calculated 37 mg/dL (0-99); Magnesium 2.3 mg/dL (1.6-2.6); Osmolality,Calculated 294 (280-300); Potassium 4.2 mEq/L (3.5-5.1); Sodium 138 mEq/L (136-145); Triglycerides 248 mg/dL (< 150); eGFR For African Americans > 60 (> 60); eGFR For Non-African Americans 57 (> 60)
[2017-11-07 07:15] VITALS: BP 121/71
[2017-11-07] MEDS: Sucralfate 1 GM TABLET PO SCH (08:29)
[2017-11-07] MEDS: Apixaban 5 MG TABLET PO SCH (08:30)
[2017-11-07] MEDS: Isosorbide MONOnitrate (24 HR) 30 MG TAB.ER.24H PO SCH (08:30)
[2017-11-07] MEDS: Gabapentin 300 MG CAPSULE PO SCH (08:30)
--- NOTE | 2017-11-07 08:38 | Discharge Summary ---
- NOTES TO OUTPATIENT PROVIDER Notes to Outpatient Provider: Follow up with PCP in 2-3 days after discharge. Refer for sleep study at that time. Keep follow up with GI for EGD as scheduled. Keep follow up with cardiology as directed. Date of Encounter: 11/07/17 Time of Encounter: 08:36 - Discharge Diagnosis (1) Abdominal pain Priority: Primary Status: Resolved Qualifiers: Abdominal location: left upper quadrant Qualified Code(s): R10.12 - Left upper quadrant pain (2) Sleep apnea Priority: Secondary Status: Chronic Qualifiers: Sleep apnea type: unspecified type Qualified Code(s): G47.30 - Sleep apnea , unspecified (3) Afib Priority: Secondary Status: Chronic Qualifiers: Atrial fibrillation type: paroxysmal Qualified Code(s): I48.0 - Paroxysmal atrial fibrillation (4) Coronary artery disease Priority: Secondary Status: Chronic Qualifiers: Coronary Disease-Associated Artery/Lesion type: [place] artery [place] vs. transplanted heart: [place] heart Associated angina: without angina Qualified Code(s): I25.10 - Atherosclerotic heart disease of [place] coronary artery without angina pectoris (5) Hypertension Priority: Secondary Status: Chronic Qualifiers: Hypertension type: essential hypertension Qualified Code(s): I10 - Essential (primary) hypertension (6) Type 2 diabetes mellitus Priority: Secondary Status: Chronic Qualifiers: Diabetes mellitus mcc insulin use: without mcc use Diabetes mellitus complication status: with unspecified complications Qualified Code(s) : E11.8 - Type 2 diabetes mellitus with unspecified complications (7) DVT prophylaxis Priority: Secondary Status: Acute Hospital course: Mr. Tiwari is a 72 year old male admitted for abdominal pain and ACS ruleout. Patient was admitted for observation to general medical floor with telemetry. He was started on IV PPI. Home carafate was continued. GI cocktail was used PRN to good pain relief. He denied any chest pain during admission. Cardiac enzymes trended negative x 3. Home CAD medications were continued. He had some dyspnea when lying flat at night. He will need sleep study as outpatient. He reports no dyspnea at this time. He will follow up with PCP in 2-3 days after discharge. He will keep follow up appointment with GI for EGD as scheduled. He will follow up with cardiology as directed. Discharge discussed with: patient, nurse - Time Spent with Patient Total time spent providing and/or coordinating discharge services: Less than 30 minutes - Discharge Medications Home Medications: Atorvastatin [Lipitor] 40 mg PO HS 01/01/15 [History] Canagliflozin [Invokana] 300 mg PO QAM 01/01/15 [History] Isosorbide MONOnitrate (24 HR) [Imdur] 30 mg PO BID 01/01/15 [History] Glimepiride [Amaryl] 4 mg PO DAILY 10/08/15 [History] Clopidogrel [Plavix] 75 mg PO DAILY #30 tablet 01/22/16 [Rx] Gabapentin [Neurontin] 600 mg PO TID 01/18/17 [History] Sitagliptin Phosphate [Januvia] 50 mg PO DAILY 01/18/17 [History] Apixaban [Eliquis] 5 mg PO BID 09/15/17 [History] Bumetanide [Bumex] 1 mg PO DAILY 09/15/17 [History] Finasteride [Proscar] 5 mg PO HS 09/15/17 [History] Potassium Chloride [Klor-Con 10] 10 meq PO BID 09/15/17 [History] Diltiazem CD (24hr) [Cardizem CD] 120 mg PO DAILY #30 cap.er.24h 09/18/17 [Rx] Amiodarone HCl [Pacerone] 200 mg PO DAILY 10/22/17 [History] Esomeprazole Magnesium [Nexium] 40 mg PO DAILY 10/22/17 [History] Fenofibrate 48 mg PO DAILY 10/22/17 [History] Ferrous Fumarate/Ascorbic Acid [April-Sequels 65-25 mg Caplet] 1 tab PO DAILY [History] Sucralfate [Carafate] 1 gm PO 0730,1630 10/22/17 [History] Nitroglycerin 1 - 2 spray NS AD PRN 11/06/17 [History] Allergies/Adverse Reactions: 3 Allergy/AdvReac Type Severity Reaction Status Date / Time bacitracin Allergy Intermediate Blister Verified 11/06/17 09:57 [From Neosporin ([id number])] Neomycin Allergy Intermediate Blister Verified 11/06/17 09:57 [From Neosporin ([id number])] polymyxin B Allergy Intermediate Blister Verified 11/06/17 09:57 [From Neosporin ([id number]-[id number])] azithromycin AdvReac See Verified 11/06/17 09:57 Comments Date of admission: 11/06/17 09:51 Primary care physician: Aureliano Salamanca MD Discharging clinician: Chauncey Merlos Anticipated date of discharge: 11/07/17 - Constitutional Vitals: Temp Pulse Resp BP Pulse Ox 98.0 F 85 22 121/71 90 11/07/17 07:13 11/07/17 07:13 11/07/17 07:13 11/07/17 07:13 11/07/17 07:13 General appearance: Present: cooperative, A&O X 3, morbidly obese, pleasant, no acute distress, answers questions appropriately - Respiratory Respiratory exam: Present: CTAB. Absent: accessory muscle use, rales, rhonchi, wheezes Additional comments: Normal WOB - Cardiovascular Cardiovascular exam: Present: RRR, +S1, +S2. Absent: diastolic murmur, gallop, rubs, systolic murmur Additional comments: No BLE edema - GI/Abdominal GI/Abdominal exam: Present: normal bowel sounds, soft. Absent: distended, hepatomegaly, mass, splenomegaly, tenderness - Psychiatric Psychiatric exam: Present: normal affect, normal mood. Absent: agitated, anxious, depressed - Skin Skin exam: Present: dry, intact, warm. Absent: cyanosis, rash - Patient Status Disposition: Home, Self-Care Condition: Good Overall status at discharge: patient is progressing back to baseline - Discharge Instructions Follow Up With: Aureliano Salamanca MD [Primary Care Provider] - 11/14/17 3:15 pm Shanika Orozco [Advanced Practice Nurse] - Cherise Gonzalez MD [Partnered Physician] - 11/08/17 9:00 am Additional Instructions: Follow up with PCP in 2-3 days after discharge. Refer for sleep study at that time. Keep follow up with GI for EGD as scheduled. Keep follow up with cardiology as directed. - Diet and Activity Activity: resume usual activities as tolerated Diet: diabetic diet, low fat, low cholesterol, low salt diet, other (Cardiac Diet) - VTE Contraindication No Overlap Therapy: Admin of oral Factor Xa Inhibitor
[2017-11-07] MEDS ORDERED: Diltiazem CD (24hr) 120 MG CAPSULE PO SCH (09:00)
[2017-11-07] MEDS ORDERED: Bumetanide 1 MG TABLET PO SCH (09:00)
[2017-11-07] MEDS ORDERED: *HR* Glimepiride 4 MG TABLET PO SCH (09:00)
[2017-11-07] MEDS ORDERED: *HR* Amiodarone 200 MG TABLET PO SCH (09:00)
[2017-11-07] MEDS ORDERED: *HR* SitaGLIPtin 25 MG TABLET PO SCH (09:00)
--- NOTE | 2017-11-07 18:18 | Electrocardiograph Report ---
[place] [id number] Test Date: 2017-11-06 Pat Name: Jon Tiwari Department: 103 Room: 3B Gender: M Nutrition Internship: [facility] : 1945 Requested By: Devyn Tafoya Order Number: [id number] Reading MD: Darinel Feldman Measurements Intervals [place] Rate: 81 P: -24 MS: 186 QRS: 247 QRSD: 205 T: 47 QT: 489 QTc: 526 Interpretive Statements SINUS RHYTHM MARKED RIGHT AXIS DEVIATION RIGHT BUNDLE BRANCH BLOCK Electronically Signed On 11-07-2017 18:17:23 EDT by Darinel Feldman
== END 2017-11-07 12:30 | disposition home or self-care (01) ==
LOC: EMEROO 07:27 → 3BNU 07:27
PROVIDERS: ADMIT Internal Medicine; ATTEND Internal Medicine

== ENCOUNTER 2019-01-08 18:40 | Observation (INO) ==
--- NOTE | 2019-01-08 18:49 | Emergency Department Note ---
Disposition Clinical Impression: Elevated troponin Chest pain Qualifiers: Chest pain type: unspecified Qualified Code(s): R07.9 - Chest pain, unspecified CKD (chronic kidney disease) Qualifiers: Chronic kidney disease stage: unspecified stage Qualified Code(s): N18.9 - Chronic kidney disease, unspecified Disposition: Admitted As Inpatient Time of Disposition: 20:52 General Adult HPI - General Stated complaint: chest pain Time Seen by Provider: 01/08/19 18:47 Source: patient Mode of arrival: private vehicle Limitations: no limitations Nursing Notes Reviewed: Yes Vital Signs Reviewed: Yes - History of Present Illness HPI Narrative: Patient is a 73-year-old male with a past medical history including hypertension, hyperlipidemia, coronary artery disease status post CABG, on Pl avix, history of atrial fibrillation with AICD pacemaker placement one year ago and on Eliquis, presenting with a chief complaint of chest pain. The patient was sitting down and around 5:45 PM, the patient suddenly developed a sharp chest pressure across his chest associated with shortness of breath. He denies any nausea or vomiting. He states belching helps with his pain. He states the pain has been coming and going. His most recent episode lasted for 20 minutes. He states he is pain-free at this time. He denies any fevers or chills, cough, abdominal pain, vomiting, diarrhea, recent illnesses. He does not know if this pain feels similar to his prior heart attacks. He states he has been helping out his a lot more since she recently had surgery and does not know if he is overexerting himself as the chest pain has been occurring with exertion. - Related Data Home Medications Medication Instructions Recorded Confirmed Atorvastatin [Lipitor] 40 mg PO HS 01/01/15 01/08/19 Canagliflozin [Invokana] 300 mg PO QAM 01/01/15 01/08/19 Glimepiride [Amaryl] 4 mg PO DAILY 10/08/15 01/08/19 Gabapentin [Neurontin] 600 mg PO TID 01/18/17 01/08/19 Apixaban [Eliquis] 5 mg PO BID 09/15/17 01/08/19 Bumetanide [Bumex] 1 mg PO DAILY 09/15/17 01/08/19 Finasteride [Proscar] 5 mg PO HS 09/15/17 01/08/19 Amiodarone HCl [Pacerone] 200 mg PO DAILY 10/22/17 11/19/17 Esomeprazole Magnesium [Nexium] 40 mg PO DAILY 10/22/17 01/08/19 Fenofibrate 48 mg PO DAILY 10/22/17 01/08/19 Nitroglycerin 1 - 2 spray NS AD PRN 11/06/17 01/08/19 Esomeprazole Magnesium [Nexium] 40 mg PO 01/08/19 01/08/19 Melatonin 5 mg PO 01/08/19 Metoprolol Succinate [Toprol Xl] 50 mg PO 01/08/19 Previous Rx's Medication Instructions Recorded Clopidogrel [Plavix] 75 mg PO DAILY #30 tablet 01/22/16 Allergies Allergy/AdvReac Type Severity Reaction Status Date / Time bacitracin Allergy Intermediate Blister Verified 11/06/17 09:57 [From Neosporin ([id number])] Neomycin Allergy Intermediate Blister Verified 11/06/17 09:57 [From Neosporin ([id number]-[id number])] polymyxin B Allergy Intermediate Blister Verified 11/06/17 09:57 [From Neosporin ([id number])] azithromycin AdvReac See Verified 11/06/17 09:57 Comments All systems ED: reviewed and negative except as stated. Review of Systems: As Per HPI Constitutional: Denies: fever, chills Cardiovascular: Reports: chest pain. Denies: palpitations Respiratory: Reports: dyspnea. Denies: cough Gastrointestinal: Denies: abdominal pain, nausea, vomiting Genitourinary: Denies: dysuria, hematuria Musculoskeletal: Denies: back pain Neurological: Denies: headache Past Medical History - Past Medical History Attestation: Yes The following information was validated with the patient. Source: patient Medical history: Reports: arthritis, atrial fibrillation, cancer, cardiomyopathy, coronary artery disease, diabetes, GERD, hypertension, myocardial infarction Surgical history: Reports: angioplasty/stent, cataract, cholecystectomy, coronary bypass (CABG), other Psychiatric history: Reports: no psych history - Social History Smoking Status: Former smoker Smokeless Tobacco Status: No Alcohol use: Reports: none Drug use: Reports: none Physical Exam - General Limitations: no limitations General appearance: alert, in no apparent distress - Head Head exam: atraumatic, normocephalic - Eye Eye exam: Present: normal appearance, EOMI - ENT ENT exam: normal exam, normal oropharynx - Neck Neck exam: Present: normal inspection, trachea midline - Chest Chest inspection: Present: normal inspection, symmetric chest wall rise, other (sternal CABG scar well healed) - Respiratory Respiratory exam: Present: normal lung sounds bilaterally. Absent: respiratory distress, wheezes - Cardiovascular Cardiovascular exam: Present: regular rate, normal rhythm, normal heart sounds - Abdominal Exam Abdominal exam: Present: soft, Non-Tender. Absent: distention - Extremities Exam Extremities exam: Present: full ROM, normal capillary refill. Absent: pedal edema, calf tenderness - Neurological Exam Neurological exam: Present: alert, oriented X3 - Psychiatric Psychiatric exam: Present: normal affect, normal mood - Skin Skin exam: Present: warm, dry. Absent: diaphoresis, pallor Course Vital Signs Temperature 98 F 01/08/19 18:53 Pulse Rate 94 01/08/19 18:53 Respiratory Rate 16 01/08/19 18:53 Blood Pressure 127/73 01/08/19 18:53 O2 Sat by Pulse Oximetry 98 01/08/19 18:53 Temperature 98 F 01/08/19 18:53 Pulse Rate 82 01/08/19 20:42 Respiratory Rate 20 01/08/19 20:42 Blood Pressure 109/60 01/08/19 20:42 O2 Sat by Pulse Oximetry 95 01/08/19 20:42 Oxygen Delivery Oxygen Delivery Room Air Medical Decision Making - [facility] Narrative Medical decision making narrative: Patient is presenting with chest pain over the last several days that worsens with exertion and he also has shortness of breath. He does no know if it feels similar to the prior chest pain he has experienced with his prior heart attack. Given his risk factors and prior CABG, patient will obtain ACS workup and will be admitted for further evaluation and management. He will receive an aspirin. He is chest pain-free at this time. Discussed with the patient if he develops chest pain again that we will try nitroglycerin and obtain a repeat EKG. 20:00 Labs and imaging reviewed. Mild elevation in troponin to 0.04. Patient has had no repeat chest pain. We will admit the patient for ACS workup. Hospitalist was paged for admission. Patient has remained chest pain-free during his stay. 20:[address] Storm, hospitalist who accepts admission. He would like me to call cardiology about the patient's EKG. 20:[address] Dominguez, Cardiology. He will review the EKG. If cocernce about ACS, hold the eliquis and after 12 hours, start heparin per ACS protocol. 21:00 Cardiology, Dr. Dominguez reviewed the ekg and has no further recommendations at this time. - Medical Records Medical records reviewed: Yes I reviewed the patient's medical records. - Lab Data Lab results reviewed: Yes I reviewed the patient's lab results. Result diagrams: 01/08/19 19:00 01/08/19 19:00 Lab Results 01/08/19 01/08/19 01/08/19 Range/Units 19:00 19:00 19:00 WBC 7.1 (4.3-11.1) K/mcL RBC 4.86 (4.19-5.50) M/mcL Hgb 13.2 (12.9-16.9) g/dL Hct 38.9 (37.5-50.1) % MCV 80.0 L (83.0-100.0) fL MCH 27.2 L (28.0-33.3) pg MCHC 33.9 (31.6-35.5) g/dL RDW 15.9 H (11.5-14.5) % Plt Count 188 (140-400) K/mcL MPV 10.4 (9.4-12.4) fL Immature Gran % 0.6 (0-4) % Seg Neutrophils % 66.5 % Lymphocytes % 22.4 % Monocytes % 7.6 % Eosinophils % 2.3 % Basophils % 0.6 % Neutrophils # 4.7 (1.6-8.9) K/mcL Lymphocytes # 1.6 (0.6-4.6) K/mcL Monocytes # 0.5 (0.0-1.3) K/mcL Eosinophils # 0.2 (0.0-0.6) K/mcL Basophils # 0.0 (0.0-0.2) K/mcL PT 13.0 H (9.4-12.1) Seconds INR 1.1 APTT 37.0 H (26.0-36.0) Seconds Sodium 131 L (136-145) mEq/L Potassium 3.9 (3.5-5.1) mEq/L Chloride 95 L (98-107) mEq/L Carbon Dioxide 22 L (23-29) mEq/L BUN 32 H (8-23) mg/dL Creatinine 1.64 H (0.70-1.30) mg/dL Est GFR ( Amer) 50 L (> 60) Est GFR (Non-Af Amer) 42 L (> 60) BUN/Creatinine Ratio 20 (6-26) Glucose 349 H (70-105) mg/dL Calculated Osmolality 293 (280-300) Calcium 9.6 (8.6-10.3) mg/dL Troponin I 0.04 H* (< 0.04) ng/mL - Radiology Data Radiology results reviewed: Yes I reviewed the patient's radiology results. Chest X-Ray 01/08/19 18:48 IMPRESSION: Stable portable study. D/ / Lashanda Yu Cha, MD / Lashanda Yu Cha, MD Interpreting Provider: Lashanda Yu Cha, MD - EKG Data EKG #1 EKG attestation: Yes I reviewed and interpreted this EKG. EKG results narrative: EKG obtained at 1847 shows ventricular paced rhythm with heart rate 108, OR 500, QRS duration 200, QTC 581, ST depression in aVL, V2, this could be rate related changes, old EKG on 11/24/2017 which was before the patient's AICD pacemaker that showed atrial flutter with heart rate 43. Attestation Statement - Attestation Attestation: I, Pavan Ortega, examined this patient and my medical decision-making was reviewed with the PIANO TEACHER/PA/Advanced Practice Nurse/Resident Physician. I agree with the documented findings, disposition and treatment plan as described except to the extent set forth below. 73-year-old male presents emergency Department with concerns of chest pain. Patient states his pain is described as a tightness across the chest that does not radiate. It feels somewhat similar to his previous DC. He has 5 cardiac stents as well as a quadruple bypass in place. He currently takes Eliquis and Plavix at home. Patient denies recent trauma. Denies fever, chills, syncope, nausea, vomiting, abdominal pain, hematochezia, melena. Initial troponin was mildly elevated. EKG shows a ventricularly paced rhythm which is different from his previous EKG. Patient does not have chest pain in the emergency department. Vital signs are stable in emergency department. Patient is resting comfortably in the bed. He was admitted to the hospitalist in stable condition.
[2019-01-08] MEDS ORDERED: Aspirin 81 MG TAB.CHEW PO STA (18:50)
[2019-01-08] MEDS ORDERED: 0.9 % Sodium Chloride 1,000 ML IVC ONE (18:52)
[2019-01-08 19:20] LABS: Basophils % 0.6 %; Eosinophils # 0.2 K/mcL (0.0-0.6); Eosinophils % 2.3 %; Hematocrit 38.9 % (37.5-50.1); Hemoglobin 13.2 g/dL (12.9-16.9); Immature Granulocytes % 0.6 % (0-4); Lymphocytes # 1.6 K/mcL (0.6-4.6); Lymphocytes % 22.4 %; Mean Corpuscular HGB Conc 33.9 g/dL (31.6-35.5); Mean Corpuscular Hemoglobin 27.2 pg (28.0-33.3); Mean Platelet Volume 10.4 fL (9.4-12.4); Monocytes # 0.5 K/mcL (0.0-1.3); Monocytes % 7.6 %; Neutrophils # 4.7 K/mcL (1.6-8.9); Platelet Count 188 K/mcL (140-400); Red Blood Count 4.86 M/mcL (4.19-5.50); Red Cell Distribution Width 15.9 % (11.5-14.5); Segmented Neutrophils % 66.5 %; White Blood Count 7.1 K/mcL (4.3-11.1)
[2019-01-08 19:34] LABS: INR 1.1
[2019-01-08 19:52] LABS: Calcium 9.6 mg/dL (8.6-10.3); Potassium 3.9 mEq/L (3.5-5.1); Troponin I 0.04 ng/mL (< 0.04)
[2019-01-08] MEDS ORDERED: Apixaban 5 MG TABLET PO SCH (21:30)
[2019-01-08] MEDS ORDERED: Nitroglycerin 0.4 MG TAB.SUBL SL PRN (21:34)
[2019-01-08] MEDS ORDERED: *HR* Dextrose 50 % in Water (Syg) 50 ML SYRINGE IVP PRN (22:02)
[2019-01-08] MEDS ORDERED: Dextrose Gel 15 GM/37.5 ML TUBE PO PRN ×2 (22:02)
--- NOTE | 2019-01-08 22:32 | Internal Med History&Physical ---
Date of Encounter: 01/08/19 Time of Encounter: 22:31 Internal Medicine - H&P: HPI Chief complaint: chest pain Admitted From: Home Plans for Post Hospital Care: Home History of present illness: Jon Tiwari is a 73 year old man with hypertension, diabetes, a notable cardiovascular history including atrial fibrillation for which he is on apixaban, s/p PPM for syncope related to bradycardia/sinus pauses, coronary artery disease s/p quadruple cardiac bypass and 5 stents with his last cath done 1 year ago showing severe CAD, chronic systolic heart failure with an EF 20-25%, chronic kidney disease and chronic respiratory failure in the setting of COPD and LUPE. He presents to the ER tonight complaining of chest pressure that started at 6PM while he was at rest. He says it was sudden onset and radiated across his chest associated with dyspnea but denied nausea, vomiting, cough, fever and chills. He was given a loading dose of aspirin and says his chest pain has resolved. EKG shows a paced rhythm. Lab work was remarkable for troponin of 0.04 and on review of old records she has had fluctuating troponin levels from normalcy to elevated. He is admitted for observation. Vitals: Reviewed General: Well-developed man sitting up in bed in NAD Skin: Warm and dry. HEENT: Moist mucous membranes. No conjunctivae pallor. Neck: No lymphadenopathy. No JVD. No carotid bruits. No palpable thyroid. Chest: Normal thoracic expansion. Normal breath sounds. Clear to auscultation. PPM on left upper chest wall. Heart: Normal S1 & S2; rhythmic. Abdomen: Non-distended, soft and non-tender to palpation. No peritoneal reaction. Extremities: No clubbing, cyanosis or edema. No calf tenderness. Normal distal pulses. Neurological: Awake, alert and oriented to person, place and time. No focal deficits. Psych: Affect appropriate. Assessment/Plan 1. Chest pain: There is concern for NSTEMI given the new pain characteristics associated with a slight troponin elevation that will need to continue to be trend to assess for increase or stabilization. He received his night time dose of apixaban therefore anticoagulation will not be started on him until 12 hours from that dose if deemed warranted. Will continue medical therapy, monitor on telemetry and obtain cardiology consultation in the morning. 2. Chronic systolic heart failure: We will get a repeat echo for evaluation to assess for improvement since on medical therapy. Maintain euvolemia. 3. Electrolyte imbalance: As evidenced by mild hyponatremia and hypochloremia. He received 1 L of normal saline already and therefore will not continue any further fluid resuscitation given his low EF. Recheck BMP in the morning. 4. Chronic kidney disease: stable creatinine clearance. Avoid nephrotoxic agent. 5. Diabetes: Poorly controlled glycemic values. Place on insulin sliding scale. 6. Hypertension: BP values are currently within normal limits. Past Med Surg Social Fam HX - Past Medical History Medical history: arthritis, atrial fibrillation, cancer, cardiomyopathy, coronary artery disease, diabetes, GERD, hyperlipidemia, hypertension, myocardial infarction, other Additional medical history: skin cancer Psychiatric history: no psych history - Past Surgical History Surgical History: angioplasty/stent, cataract, cholecystectomy, coronary bypass (CABG), other, AICD Additional surgical history: 5 cardiac stents - Social History Smoking Status: Former smoker Smokeless Tobacco Status: No Alcohol use: none Drug use: none - Family History Father Adopted: No Family Member Ethnicity: Non- Living Status: Hx Family Cardiac Disorders: Yes (CAD) Hx Family Endocrine Disorder: Yes (Diabetes) Mother Living Status: Hx Family Endocrine Disorder: Yes (Diabetes) Internal Medicine - H&P: Meds Atorvastatin [Lipitor] 40 mg PO HS 01/01/15 [History] Canagliflozin [Invokana] 300 mg PO QAM 01/01/15 [History] Glimepiride [Amaryl] 4 mg PO DAILY 10/08/15 [History] Clopidogrel [Plavix] 75 mg PO DAILY #30 tablet 01/22/16 [Rx] Gabapentin [Neurontin] 600 mg PO TID 01/18/17 [History] Apixaban [Eliquis] 5 mg PO BID 09/15/17 [History] Bumetanide [Bumex] 1 mg PO DAILY 09/15/17 [History] Finasteride [Proscar] 5 mg PO HS 09/15/17 [History] Amiodarone HCl [Pacerone] 200 mg PO DAILY 10/22/17 [History] Esomeprazole Magnesium [Nexium] 40 mg PO DAILY 10/22/17 [History] Fenofibrate 48 mg PO DAILY 10/22/17 [History] Nitroglycerin 1 - 2 spray NS AD PRN 07/01/18 [History] Esomeprazole Magnesium [Nexium] 40 mg PO 01/08/19 [History] Melatonin 5 mg PO 01/08/19 [History] Metoprolol Succinate [Toprol Xl] 50 mg PO 01/08/19 [History] Allergy/AdvReac Type Severity Reaction Status Date / Time bacitracin Allergy Intermediate Blister Verified 11/06/17 09:57 [From Neosporin ([id number])] Neomycin Allergy Intermediate Blister Verified 11/06/17 09:57 [From Neosporin ([id number])] polymyxin B Allergy Intermediate Blister Verified 11/06/17 09:57 [From Neosporin ([id number])] azithromycin AdvReac See Verified 11/06/17 09:57 Comments All Systems PM: A 10-system review of systems was performed and is negative for pertinent findings except as documented above in the HPI. - Constitutional Vitals: Temp Pulse Resp BP Pulse Ox 97.9 F 89 16 114/75 95 01/08/19 22:04 01/08/19 22:04 01/08/19 22:04 01/08/19 22:04 01/08/19 22:04 Exam: . Internal Med - H&P Results - Labs CBC & Chem 7: 01/08/19 19:00 01/08/19 19:00 Labs: Short CBC 01/08/19 Range/Units 19:00 WBC 7.1 (4.3-11.1) K/mcL Hgb 13.2 (12.9-16.9) g/dL Hct 38.9 (37.5-50.1) % Plt Count 188 (140-400) K/mcL Neutrophils # 4.7 (1.6-8.9) K/mcL BMP 01/08/19 19:00 Sodium 131 L Potassium 3.9 Chloride 95 L Carbon Dioxide 22 L BUN 32 H Creatinine 1.64 H Glucose 349 H Calcium 9.6 Cardiac Enzymes 01/08/19 Range/Units 19:00 Troponin I 0.04 H* (< 0.04) ng/mL - Impressions ITS Impressions Chest X-Ray 01/08/19 18:48 IMPRESSION: Stable portable study. D/ / Lashanda Yu Cha, MD / Lashanda Yu Cha, MD Interpreting Provider: Lashanda Yu Cha, MD - Time Spent With Patient Total time spent is greater than 50% in coordination of care (as documented) at patient's floor/unit and/or counseling patient:
[2019-01-09] MEDS: Insulin LISPRO 300 UNITS/3 ML VIAL SQ SCH ×3 (00:05→12:50)
[2019-01-09] MEDS: Gabapentin 300 MG CAPSULE PO SCH ×2 (08:34→14:55)
[2019-01-09] MEDS ORDERED: Bumetanide 1 MG TABLET PO SCH (09:00)
[2019-01-09] MEDS ORDERED: Metoprolol XL (24 HR) Succ 50 MG TAB.ER.24H PO SCH (09:00)
[2019-01-09] MEDS ORDERED: Fenofibrate 54 MG TABLET PO SCH (09:00)
--- NOTE | 2019-01-09 09:01 | Cardiology Consult Note ---
<OzarkYenifer loredon - Last Filed: 01/09/19 10:33> Date of Encounter: 01/09/19 Time of Encounter: 08:30 Assessment and Plan (1) Chest pain Current Visit: Yes Status: Acute Troponins borderline of unknown cause (.04, .06) Reports lasted about 20min yesterday, felt like a heavy weight was on his chest. Denies use of Guilherme, states CP went away on it's own. Chest pain free at time of eval. Denies CP over night. EKG reviewed: AV paced. Given symptoms and extensive cardiac history -- will order stress test for today. Qualifiers: Chest pain type: unspecified Qualified Code(s): R07.9 - Chest pain, unspecified (2) Coronary artery disease Current Visit: Yes Status: Chronic Hx CABG x4 in 1999 and 5 stents. 11/22/17: severe 3v CAD, S/P CABG 4 of 4 patent bypass grafts, previously stented L main, SVG to R PDA, SVG to diag 1 patent. Continue Plavix, BB & Statin. See above for plan. Qualifiers: Coronary Disease-Associated Artery/Lesion type: [place] artery [place] vs. transplanted heart: [place] heart Associated angina: without angina Qualified Code(s): I25.10 - Atherosclerotic heart disease of [place] coronary artery without angina pectoris (3) CHF (congestive heart failure) Current Visit: No Status: Chronic History of systolic CHF. Last known EF 20-25%. S/p ICD placement at [place]. Recommend low Na diet, daily weights and strict I&O. Euvolemic on exam. Echo pending, if EF still reduced, will add DENISE/ARB. Qualifiers: Heart failure type: systolic Heart failure chronicity: chronic Qualified Code(s): I50.22 - Chronic systolic (congestive) heart failure Discussion w patient/family: The assessment and plan as outlined above was discussed with the patient and/or family members who expressed understanding and agreement. All questions were answered. Thank you for involving us in the care of your patient. Please call with any questions. The above assessment and plan with be discussed with Dr. Alexander and will make changes as necessary. History of Present Illness Consult date: 01/09/19 Consult reason: CP History of present illness: Mr. Tiwari is a 73 year old male with PMH HTN, DM, afib on on Apixaban, ICD, CAD s/p quadruple cardiac bypass and 5 stents with his last cath done 1 year ago [facility] severe CAD, chronic systolic HF with EF 20-25%, CKD and chronic respiratory failure in the setting of COPD and LUPE. He presents to the ER last night \\w/ CC of chest heaviness that started at 6PM while he was at rest. Reports it was sudden onset, non-radiating, lasted about 20 minutes and felt like "a heavy weight" laying on his chest. Denies nausea, vomiting, cough, fever and chills. Past Med Surg Social Fam HX - Past Medical History Medical history: arthritis, atrial fibrillation, cancer, cardiomyopathy, coronary artery disease, diabetes, GERD, hyperlipidemia, hypertension, myocardial infarction, other Additional medical history: skin cancer Psychiatric history: no psych history - Past Surgical History Surgical History: angioplasty/stent, cataract, cholecystectomy, coronary bypass (CABG), other, AICD Additional surgical history: 5 cardiac stents - Social History Smoking Status: Former smoker Smokeless Tobacco Status: No Alcohol use: none Drug use: none - Family History Father Adopted: No Family Member Ethnicity: Non- Living Status: Hx Family Cardiac Disorders: Yes (CAD) Hx Family Endocrine Disorder: Yes (Diabetes) Mother Living Status: Hx Family Endocrine Disorder: Yes (Diabetes) Medications and Allergies Atorvastatin [Lipitor] 40 mg PO HS 01/01/15 [History] Canagliflozin [Invokana] 300 mg PO QAM 01/01/15 [History] Glimepiride [Amaryl] 4 mg PO DAILY 10/08/15 [History] Clopidogrel [Plavix] 75 mg PO DAILY #30 tablet 01/22/16 [Rx] Gabapentin [Neurontin] 600 mg PO TID 01/18/17 [History] Apixaban [Eliquis] 5 mg PO BID 09/15/17 [History] Bumetanide [Bumex] 1 mg PO DAILY 09/15/17 [History] Finasteride [Proscar] 5 mg PO HS 09/15/17 [History] Esomeprazole Magnesium [Nexium] 40 mg PO DAILY 10/22/17 [History] Fenofibrate 48 mg PO DAILY 10/22/17 [History] Melatonin 5 mg PO HS PRN 01/08/19 [History] Metoprolol Succinate [Toprol Xl] 50 mg PO DAILY 01/08/19 [History] Lisinopril [Zestril] 5 mg PO DAILY 01/09/19 [History] Nitroglycerin [Nitrostat] 0.4 mg SL Q5MIN PRN 01/09/19 [History] Allergy/AdvReac Type Severity Reaction Status Date / Time bacitracin Allergy Intermediate Blister Verified 11/06/17 09:57 [From Neosporin ([id number])] Neomycin Allergy Intermediate Blister Verified 11/06/17 09:57 [From Neosporin ([id number])] polymyxin B Allergy Intermediate Blister Verified 11/06/17 09:57 [From Neosporin ([id number]-[id number])] azithromycin AdvReac See Verified 11/06/17 09:57 Comments All Systems Review: The remainder of the systems were reviewed and are negative - Cardiovascular Cardiovascular: as per HPI Physical Examination Vital Signs, Last 4 Hours Temp Pulse Resp BP Pulse Ox 01/09/19 07:06 97.5 F L 83 16 114/70 94 General: Conversant, No Apparent Distress HEENT: Atraumatic, Normocephaly, Mucus Membranes Moist Neck: No JVD Cardiac: Reg Rate and Rhythm, Normal S1 and S2, No Murmur Lungs: Normal Breath Sounds, No Wheeze, Rales, Rhonchi Neuro: Alert and responsive, No focal deficits noted Abdomen: Soft, Non-Tender Skin: No rashes noted on visualized skin Musculoskeletal: No Chest Wall Tenderness Extremities: No Clubbing, No Cyanosis, No Edema, Normal Pulses Results 01/08/19 19:00 01/09/19 08:59 Lab Results 01/08/19 01/08/19 01/08/19 19:00 19:00 19:00 WBC 7.1 Hgb 13.2 Hct 38.9 Plt Count 188 INR 1.1 APTT 37.0 H Sodium 131 L Potassium 3.9 Chloride 95 L Carbon Dioxide 22 L BUN 32 H Creatinine 1.64 H Glucose 349 H Calcium 9.6 Troponin I 0.04 H* 01/09/19 02:02 WBC Hgb Hct Plt Count INR APTT Sodium Potassium Chloride Carbon Dioxide BUN Creatinine Glucose Calcium Troponin I 0.06 H* - Imaging and Cardiology Chest Xray: report reviewed Other Results: 12hr tele reviewed: average HR 83, NSR/paced, no events noted - EKG Interpretation EKG results cardiology: personally reviewed (AV paced) Consult Discharge Plan - Plan Referrals: Aureliano Salamanca MD [Primary Care Provider] - <Mathew Alexander - Last Filed: 01/09/19 15:10> Date of Encounter: 01/09/19 - Attending Attestation I have personally performed a face to face evaluation on this patient. I have reviewed and agree with the care plan. History and Exam by me shows: 73-year-old male with history of multiple cardiac risk factors status post-ICD for ischemic cardiomyopathy and known severe LV systolic dysfunction, status post-LHC November 2017 with patent CHATMAN to LAD, nonobstructive disease in the SVG to OM and SVG to diagonal. There was also 30% ISR in the SVG to RPDA. Echo November 2017 shows ejection fraction 20-25%. He is euvolemic on exam resting comfortable be however did complain of chest pain which brought him to the emergency department. Troponin 0.04 up 0.06. With above extensive history of coronary artery disease I do believe a chemical stress test reasonable. Assessment and Plan Discussion w patient/family: The assessment and plan as outlined above was discussed with the patient and/or family members who expressed understanding and agreement. All questions were answered. Thank you for involving us in the care of your patient. Please call with any questions. History of Present Illness History of present illness: Mr. Tiwari is a 73 year old male All Systems Review: The remainder of the systems were reviewed and are negative Physical Examination Vital Signs, Last 4 Hours Temp Pulse Resp BP Pulse Ox 01/09/19 12:10 97.7 F 101 16 123/69 94 Results 01/08/19 19:00 01/09/19 08:59 Lab Results 01/08/19 01/08/19 01/08/19 19:00 19:00 19:00 WBC 7.1 Hgb 13.2 Hct 38.9 Plt Count 188 INR 1.1 APTT 37.0 H Sodium 131 L Potassium 3.9 Chloride 95 L Carbon Dioxide 22 L BUN 32 H Creatinine 1.64 H Glucose 349 H Calcium 9.6 Troponin I 0.04 H* 01/09/19 01/09/19 01/09/19 02:02 08:59 08:59 WBC Hgb Hct Plt Count INR APTT Sodium 133 L Potassium 4.3 Chloride 97 L Carbon Dioxide 28 BUN 31 H Creatinine 1.47 H Glucose 239 H Calcium 9.3 Troponin I 0.06 H* 0.05 H*
[2019-01-09] MEDS ORDERED: Regadenoson 0.4 MG/5 ML SYRINGE IVP ONE (09:32)
[2019-01-09 09:49] LABS: Calcium 9.3 mg/dL (8.6-10.3); Potassium 4.3 mEq/L (3.5-5.1)
[2019-01-09] MEDS ORDERED: Perflutren Lipid Microsphere 1.3 ML in 0.9 % Sodium Chloride 8.7 ML IVP ONE (13:56)
--- NOTE | 2019-01-09 14:01 | Electrocardiograph Report ---
[place] [id number] Test Date: 2019-01-08 Pat Name: Jon Tiwari Department: EXAM22 Room: 3B Gender: M Heel Scourer: : 1945 Requested By: Pavan Ortega Order Number: [id number] Reading MD: Aron Shearer Measurements Intervals [place] Rate: 94 P: 92 IN: 72 QRS: 243 QRSD: 205 T: 89 QT: 477 QTc: 597 Interpretive Statements Ventricular-paced rhythm Electronically Signed On 01-09-2019 13:59:27 EDT by Aron Shearer
--- NOTE | 2019-01-09 14:13 | Internal Med Progress Note ---
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 He presents to the ER tonight complaining of chest pressure that started at 6PM while he was at rest. He says it was sudden onset and radiated across his chest associated with dyspnea but denied nausea, vomiting, cough, fever and chills. He was given a loading dose of aspirin and says his chest pain has resolved. EKG shows a paced rhythm. Lab work was remarkable for troponin of 0.04 and on review of old records she has had fluctuating troponin levels from normalcy to elevated. He is admitted for observation. Patient seen and examined in the room. He has no chest pain currently. - Exam Vitals: Temp Pulse Resp BP Pulse Ox 97.7 F 101 16 123/69 94 01/09/19 12:10 01/09/19 12:10 01/09/19 12:10 01/09/19 12:10 01/09/19 12:10 Exam: PHYSICAL EXAMINATION: GENERAL APPEARANCE: The patient is alert, oriented and in no acute distress. HEENT: Head is normocephalic. The sinuses are nontender. Pupils are equal and reactive. The nares are patent. Oropharynx clear without lesions. NECK: Supple without lymphadenopathy. HEART: Regular rate and rhythm. LUNGS: No crackles or wheezes are heard. ABDOMEN: Soft, nontender, nondistended with good bowel sounds heard. Inguinal area is normal. EXTREMITIES: Without cyanosis, clubbing or edema. NEUROLOGICAL: Gross nonfocal. SKIN: Warm and dry without any rash. - Assessment and Plan (1) Chest pain Current Visit: Yes Status: Acute Assessment and Plan: 73-year-old male with extensive cardiac history including chronic atrial fibrillation, CAD status post CABG and stent placement, pacemaker, CHF presented with left-sided chest pain. Initial troponin was borderline. Repeated troponin still borderline at 0.05. EKG showed paced rhythm. Cardiology was consulted. Echocardiogram and stress test are pending currently. Patient on Plavix and Eliquis at home which were continued. (2) Afib Current Visit: No Status: Chronic Assessment and Plan: Pt on Eliquis, paced rhythm. (3) Hypertension Current Visit: No Status: Chronic Assessment and Plan: BP controlled, continue home medications. (4) Type 2 diabetes mellitus Current Visit: No Status: Chronic Assessment and Plan: Hold home oral agent, started patient on insulin sliding scale. (5) CHF (congestive heart failure) Current Visit: No Status: Chronic Assessment and Plan: Euvolemic on physical exam continue home medication including Bumex. (6) Coronary artery disease Current Visit: No Status: Chronic Assessment and Plan: management the same as above. (7) DVT prophylaxis Current Visit: No Status: Acute Assessment and Plan: Patient on Eliquis. - Time Spent with Patient Total time spent is greater than 50% in coordination of care (as documented) at patient's floor/unit and/or counseling patient: Greater than 35 minutes Plan of Care Discussed with: patient Internal Medicine: Result - Labs CBC & Chem 7: 01/08/19 19:00 01/09/19 08:59 Labs: Short CBC 01/08/19 Range/Units 19:00 WBC 7.1 (4.3-11.1) K/mcL Hgb 13.2 (12.9-16.9) g/dL Hct 38.9 (37.5-50.1) % Plt Count 188 (140-400) K/mcL Neutrophils # 4.7 (1.6-8.9) K/mcL BMP 01/08/19 01/09/19 19:00 08:59 Sodium 131 L 133 L Potassium 3.9 4.3 Chloride 95 L 97 L Carbon Dioxide 22 L 28 BUN 32 H 31 H Creatinine 1.64 H 1.47 H Glucose 349 H 239 H Calcium 9.6 9.3 Cardiac Enzymes 01/08/19 01/09/19 01/09/19 Range/Units 19:00 02:02 08:59 Troponin I 0.04 H* 0.06 H* 0.05 H* (< 0.04) ng/mL - ABG Interpretation ABG results: PT/INR, D-dimer PT 13.0 Seconds (9.4-12.1) H 01/08/19 19:00 - Impressions Impressions Chest X-Ray 01/08/19 18:48 IMPRESSION: Stable portable study. D/ / Lashanda Yu Cha, MD / Lashanda Yu Cha, MD Interpreting Provider: Lashanda Yu Cha, MD Consult Discharge Plan - Plan Referrals: Aureliano Salaamnca MD [Primary Care Provider] - (1) Chest pain Qualifiers: Chest pain type: unspecified Qualified Code(s): R07.9 - Chest pain, unspecified (2) Afib Qualifiers: Atrial fibrillation type: paroxysmal Qualified Code(s): I48.0 - Paroxysmal atrial fibrillation (3) Hypertension Qualifiers: Hypertension type: essential hypertension Qualified Code(s): I10 - Essential (primary) hypertension (4) Type 2 diabetes mellitus Qualifiers: Diabetes mellitus fpc insulin use: without exterminator helper use Diabetes mellitus complication status: with unspecified complications (5) CHF (congestive heart failure) Qualifiers: Heart failure type: systolic Heart failure chronicity: chronic Qualified Code(s): I50.22 - Chronic systolic (congestive) heart failure (6) Coronary artery disease Qualifiers: Coronary Disease-Associated Artery/Lesion type: [place] artery [place] vs. transplanted heart: [place] heart Associated angina: without angina Qualified Code(s): I25.10 - Atherosclerotic heart disease of [place] coronary artery without angina pectoris
--- NOTE | 2019-01-09 15:30 | Event Note ---
Date of Encounter: 01/09/19 Time of Encounter: 15:25 - Cardiology Event Note Stress test negative for ischemia. Echo with EF 30-35%. Will add 2.5mg Lisinopril per guidelines, can be up-titrated as outpatient if blood pressure will allow. Discussed plan with pt- he is agreeable. Has scheduled f/u with Dr. Shearer. Cardiology will sign off at this time, please re-consult as needed.
[2019-01-09 15:31] VITALS: BP 99/62
--- NOTE | 2019-01-09 15:52 | Discharge Summary ---
- NOTES TO OUTPATIENT PROVIDER Notes to Outpatient Provider: f/u with cardiology as scheduled. f/u with PCP within a week. Date of Encounter: 01/09/19 Time of Encounter: 15:49 - Discharge Diagnosis (1) Chest pain Priority: Primary Status: Acute Qualifiers: Chest pain type: unspecified Qualified Code(s): R07.9 - Chest pain, unspecified (2) Afib Priority: Secondary Status: Chronic Qualifiers: Atrial fibrillation type: paroxysmal Qualified Code(s): I48.0 - Paroxysmal atrial fibrillation (3) Hypertension Priority: Secondary Status: Chronic Qualifiers: Hypertension type: essential hypertension Qualified Code(s): I10 - Essential (primary) hypertension (4) Type 2 diabetes mellitus Priority: Secondary Status: Chronic Qualifiers: Diabetes mellitus senior living insulin use: without senior living use Diabetes mellitus complication status: with circulatory complication Qualified Code(s): E11.51 - Type 2 diabetes mellitus with diabetic peripheral angiopathy without gangrene (5) CHF (congestive heart failure) Priority: Secondary Status: Chronic Qualifiers: Heart failure type: systolic Heart failure chronicity: chronic Qualified Code(s): I50.22 - Chronic systolic (congestive) heart failure (6) Coronary artery disease Priority: Secondary Status: Chronic Qualifiers: Coronary Disease-Associated Artery/Lesion type: [place] artery [place] vs. 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 He presents to the ER [facility] complaining of chest pressure that started at 6PM while he was at rest. He says it was sudden onset and radiated across his chest associated with dyspnea but denied nausea, vomiting, cough, fever and chills. He was given a loading dose of aspirin and says his chest pain has resolved. EKG shows a paced rhythm. Lab work was remarkable for troponin of 0.04 and on review of old records she has had fluctuating troponin levels from normalcy to elevated. He is admitted for observation. Serial troponin was flat at 0.05. EKG showed paced rhythm. Patient had a stress test which was negative for ischemia, there is a small sized fixed perfusion defect which is mild in intensity in the apical lateral segment which may represent prior infarct, pharmacological ECG was not diagnostic for ischemia, gated EF 33%. Echocardiogram showed LV ejection fraction 30-35%, severe global left ventricular systolic dysfunction, moderate dilated left ventricle, moderate to severe dilated left atrium, mild right ventricular hypokinesis, mild mitral stenosis, mild to moderate mitral regurgitation, mild tricuspid regurgitation, no evidence of pulmonary hypertension. Cardiology was consulted, recommended starting the patient on lisinopril, follow-up as outpatient. He is discharged home today, he will follow-up with PCP and cardiology as scheduled. Discharge discussed with: patient Time spent discussing smoking cessation with patient: more than 10 minutes - Time Spent with Patient Total time spent providing and/or coordinating discharge services: Time spent: Greater than 30 minutes - Discharge Medications Prescriptions: Continued Atorvastatin [Lipitor] 40 mg PO HS Canagliflozin [Invokana] 300 mg PO QAM Glimepiride [Amaryl] 4 mg PO DAILY Clopidogrel [Plavix] 75 mg PO DAILY #30 tablet Gabapentin [Neurontin] 600 mg PO TID Apixaban [Eliquis] 5 mg PO BID Bumetanide [Bumex] 1 mg PO DAILY Finasteride [Proscar] 5 mg PO HS Esomeprazole Magnesium [Nexium] 40 mg PO DAILY Fenofibrate 48 mg PO DAILY Metoprolol Succinate [Toprol Xl] 50 mg PO DAILY Melatonin 5 mg PO HS PRN PRN Reason: Sleep Lisinopril [Zestril] 5 mg PO DAILY Nitroglycerin [Nitrostat] 0.4 mg SL Q5MIN PRN PRN Reason: Chest Pain Home Medications: Atorvastatin [Lipitor] 40 mg PO HS 01/01/15 [History] Canagliflozin [Invokana] 300 mg PO QAM 01/01/15 [History] Glimepiride [Amaryl] 4 mg PO DAILY 10/08/15 [History] Clopidogrel [Plavix] 75 mg PO DAILY #30 tablet 01/22/16 [Rx] Gabapentin [Neurontin] 600 mg PO TID 01/18/17 [History] Apixaban [Eliquis] 5 mg PO BID 09/15/17 [History] Bumetanide [Bumex] 1 mg PO DAILY 09/15/17 [History] Finasteride [Proscar] 5 mg PO HS 09/15/17 [History] Esomeprazole Magnesium [Nexium] 40 mg PO DAILY 10/22/17 [History] Fenofibrate 48 mg PO DAILY 10/22/17 [History] Melatonin 5 mg PO HS PRN 01/08/19 [History] Metoprolol Succinate [Toprol Xl] 50 mg PO DAILY 01/08/19 [History] Lisinopril [Zestril] 5 mg PO DAILY 01/09/19 [History] Nitroglycerin [Nitrostat] 0.4 mg SL Q5MIN PRN 01/09/19 [History] Allergies/Adverse Reactions: Allergy/AdvReac Type Severity Reaction Status Date / Time bacitracin Allergy Intermediate Blister Verified 11/06/17 09:57 [From Neosporin ([id number])] Neomycin Allergy Intermediate Blister Verified 11/06/17 09:57 [From Neosporin ([id number])] polymyxin B Allergy Intermediate Blister Verified 11/06/17 09:57 [From Neosporin ([id number])] azithromycin AdvReac See Verified 11/06/17 09:57 Comments Date of admission: 01/08/19 20:56 Primary care physician: Aureliano Salamanca MD Consults: 01/08/19 20:51 Consult to Cardiology [CONS] Stat Comment: Consulting Provider: Cardiology [place] Reason for Consult: Chest pain, has AICD, h/o CABG, elevated troponin Call Completed: Yes Anticipated date of discharge: 01/09/19 - Constitutional Vitals: Temp Pulse Resp BP Pulse Ox 98.1 F 71 15 99/62 96 01/09/19 15:29 01/09/19 15:29 01/09/19 15:29 01/09/19 15:29 01/09/19 15:29 General appearance: Present: A&O X 3 Exam: PHYSICAL EXAMINATION: GENERAL APPEARANCE: The patient is alert, oriented and in no acute distress. HEENT: Head is normocephalic. The sinuses are nontender. Pupils are equal and reactive. The nares are patent. Oropharynx clear without lesions. NECK: Supple without lymphadenopathy. HEART: Regular rate and rhythm. LUNGS: No crackles or wheezes are heard. ABDOMEN: Soft, nontender, nondistended with good bowel sounds heard. Inguinal area is normal. EXTREMITIES: Without cyanosis, clubbing or edema. NEUROLOGICAL: Gross nonfocal. SKIN: Warm and dry without any rash. - Patient Status Disposition: Home, Self-Care Condition: Fair Functional capacity at discharge: independent ambulation Overall status at discharge: patient is progressing back to baseline - Discharge Instructions Follow Up With: Aureliano Salamanca MD [Primary Care Provider] - Forms: ED Satisfaction Letter - Diet and Activity Activity: increase activity as tolerated Diet: diabetic diet, low fat, low cholesterol, low salt diet
[2019-01-09] MEDS ORDERED: Finasteride 5 MG TABLET PO SCH (21:00)
== END 2019-01-09 17:02 | disposition home or self-care (01) ==
LOC: 3BNU 18:40 → EMEROOARM 18:40 → 3BNU 21:57
PROVIDERS: ADMIT Internal Medicine; ATTEND Internal Medicine

== ENCOUNTER 2021-01-20 05:51 | Observation (INO) ==
[2021-01-20] MEDS ORDERED: Polymyxin B Sulfate 500,000 UNIT, Sodium Chloride IRRigation 1,000 ML IR ONE (06:00)
[2021-01-20] MEDS ORDERED: CeFAZolin Syr 2,000MG/20 ML 2,000 MG/20 ML SYRINGE IVPB ONE (06:36)
[2021-01-20] MEDS ORDERED: Famotidine 20 MG/2 ML VIAL IVP ONE (07:00)
[2021-01-20] MEDS: Ringers Solution, Lactated 1,000 ML IVC SCH ×3 (07:08→18:30)
[2021-01-20] MEDS ORDERED: Heparin 1,000 UNITS/500 mL 500 ML ONE (07:12)
[2021-01-20] MEDS ORDERED: Lidocaine -MPF 2% 2 ML VIAL ONE ×2 (07:15→07:23)
[2021-01-20] MEDS ORDERED: *HR* Propofol 200 MG/20 ML VIAL IVP ONE ×2 (07:15→07:23)
[2021-01-20] MEDS ORDERED: *HR* Rocuronium Bromide 50 MG/5 ML VIAL ONE ×2 (07:15→07:24)
[2021-01-20] MEDS ORDERED: Ondansetron 4 MG/2 ML VIAL ONE ×2 (07:15→07:23)
[2021-01-20] MEDS ORDERED: *HR* Midazolam HCl 2 MG/2 ML VIAL ONE ×2 (07:15→07:23)
[2021-01-20] MEDS ORDERED: *HR* FentaNYL (PF) 100 MCG/2 ML VIAL ONE ×2 (07:15→07:23)
[2021-01-20] MEDS ORDERED: *HR* Succinylcholine 200 MG/10 ML VIAL IVP ONE ×2 (07:15→07:24)
[2021-01-20] MEDS ORDERED: *HR* Phenylephrine 10 MG/ML VIAL ONE ×2 (07:24)
[2021-01-20] MEDS ORDERED: Lidocaine -MPF 4% 5 ML AMPUL ONE (07:24)
[2021-01-20] MEDS ORDERED: *HR* Remifentanil 2 MG VIAL IVP ONE (07:25)
[2021-01-20] MEDS ORDERED: Vancomycin 1,000 MG VIAL ONE ×2 (09:43→09:45)
[2021-01-20] MEDS ORDERED: Ondansetron 4 MG/2 ML VIAL IVP PRN ×2 (11:38→14:51)
[2021-01-20] MEDS ORDERED: *HR* FentaNYL (PF) 100 MCG/2 ML VIAL IVP PRN (11:38)
[2021-01-20] MEDS: *HR* HYDROmorphone PF 0.5 MG/0.5 ML SYRINGE IVP PRN ×6 (11:52→12:57)
[2021-01-20] MEDS ORDERED: Acetaminophen 325 MG TABLET PO PRN (14:51)
[2021-01-20] MEDS: CeFAZolin 2 GM/120 ML BAG IVPB SCH ×2 (16:28→23:18)
[2021-01-20] MEDS: Ondansetron 4 MG/2 ML VIAL IVP PRN (20:51)
[2021-01-20] MEDS: *HR* OxyCODONE Immed Rel 5 MG TABLET PO PRN (23:17)
[2021-01-21] MEDS: *HR* OxyCODONE Immed Rel 5 MG TABLET PO PRN ×4 (05:39→19:54)
[2021-01-21] MEDS: Ondansetron 4 MG/2 ML VIAL IVP PRN (07:30)
[2021-01-21] MEDS: *HR* HYDROcodone/Acet 5/325 mg TABLET PO PRN ×2 (07:30→17:36)
[2021-01-21] MEDS ORDERED: Ketorolac 30 MG/ML VIAL IVP ONE (07:48)
[2021-01-21] MEDS ORDERED: diazePAM 5 MG TABLET PO PRN (07:48)
[2021-01-21] MEDS ORDERED: D5% in Water 1,000 ML IVC PRN (09:16)
[2021-01-21] MEDS ORDERED: Dextrose Gel 15 GM/37.5 ML TUBE PO PRN ×2 (09:16)
[2021-01-21] MEDS ORDERED: *HR* Dextrose 50 % in Water (Syg) 50 ML SYRINGE IVP PRN (09:21)
[2021-01-21] MEDS: Metoprolol XL (24 HR) Succ 50 MG TAB.ER.24H PO SCH (10:01)
[2021-01-21] MEDS: Bumetanide 1 MG TABLET PO SCH ×2 (10:01→19:54)
[2021-01-21] MEDS: Insulin LISPRO 300 UNITS/3 ML VIAL SUBQ SCH ×3 (12:52→22:58)
[2021-01-21] MEDS: Apixaban 5 MG TABLET PO SCH (19:54)
[2021-01-21] MEDS: Sacubitril/Valsartan 24/26 MG 1 TABLET PO SCH (21:06)
[2021-01-21] MEDS: Ringers Solution, Lactated 1,000 ML IVC SCH (21:09)
[2021-01-22] MEDS: *HR* OxyCODONE Immed Rel 5 MG TABLET PO PRN ×2 (03:25→08:12)
[2021-01-22] MEDS: Fenofibrate 54 MG TABLET PO SCH (08:10)
[2021-01-22] MEDS: Bumetanide 1 MG TABLET PO SCH ×2 (08:10→21:50)
[2021-01-22] MEDS: Sacubitril/Valsartan 24/26 MG 1 TABLET PO SCH ×2 (08:10→21:50)
[2021-01-22] MEDS: Apixaban 5 MG TABLET PO SCH ×2 (08:11→21:50)
[2021-01-22] MEDS: Metoprolol XL (24 HR) Succ 50 MG TAB.ER.24H PO SCH (08:11)
[2021-01-22] MEDS: Spironolactone 25 MG TABLET PO SCH (08:11)
[2021-01-22] MEDS: Insulin LISPRO 300 UNITS/3 ML VIAL SUBQ SCH ×4 (08:15→21:52)
[2021-01-22 13:42] LABS: Basophils # 0.1 K/mcL (0.0-0.2); Basophils % 0.5 %; Eosinophils # 0.2 K/mcL (0.0-0.6); Eosinophils % 1.5 %; Hematocrit 29.5 % (37.5-50.1); Hemoglobin 9.8 g/dL (12.9-16.9); Immature Granulocytes % 0.6 % (0-4); Lymphocytes # 1.3 K/mcL (0.6-4.6); Lymphocytes % 13.2 %; Mean Corpuscular HGB Conc 33.2 g/dL (31.6-35.5); Mean Corpuscular Hemoglobin 27.5 pg (28.0-33.3); Mean Corpuscular Volume 82.9 fL (83.0-100.0); Mean Platelet Volume 10.2 fL (9.4-12.4); Monocytes # 0.7 K/mcL (0.0-1.3); Monocytes % 6.8 %; Neutrophils # 7.8 K/mcL (1.6-8.9); Platelet Count 177 K/mcL (140-400); Red Blood Count 3.56 M/mcL (4.19-5.50); Segmented Neutrophils % 77.4 %; White Blood Count 10.1 K/mcL (4.3-11.1)
[2021-01-22 13:55] LABS: Albumin 3.6 g/dL (3.5-5.7); Albumin/Globulin Ratio 1.4 (1.1-2.2); Bilirubin,Total 0.7 mg/dL (0.3-1.0); Calcium 8.7 mg/dL (8.6-10.3); Globulin 2.5 g/dL (2.4-3.5); Potassium 4.3 mEq/L (3.5-5.1); Total Protein 6.1 g/dL (6.4-8.9)
[2021-01-22] MEDS ORDERED: 0.9 % Sodium Chloride 1,000 ML IVC SCH (15:45)
[2021-01-22] MEDS: *HR* HYDROcodone/Acet 5/325 mg TABLET PO PRN ×2 (16:03→21:50)
[2021-01-23] MEDS: *HR* OxyCODONE Immed Rel 5 MG TABLET PO PRN ×2 (01:41→08:23)
[2021-01-23 02:37] VITALS: BP 92/56; PULSE 94; TEMP 98.4; O2SAT 93
[2021-01-23] MEDS: Apixaban 5 MG TABLET PO SCH (08:22)
[2021-01-23] MEDS: Metoprolol XL (24 HR) Succ 50 MG TAB.ER.24H PO SCH (08:22)
[2021-01-23] MEDS: Fenofibrate 54 MG TABLET PO SCH (08:23)
[2021-01-23] MEDS: Bumetanide 1 MG TABLET PO SCH (08:23)
[2021-01-23] MEDS: Spironolactone 25 MG TABLET PO SCH (08:23)
[2021-01-23] MEDS: Sacubitril/Valsartan 24/26 MG 1 TABLET PO SCH (08:23)
[2021-01-23] MEDS: Insulin LISPRO 300 UNITS/3 ML VIAL SUBQ SCH (08:26)
[2021-01-23 10:54] LABS: Basophils % 0.4 %; Eosinophils # 0.1 K/mcL (0.0-0.6); Eosinophils % 1.7 %; Hematocrit 27.8 % (37.5-50.1); Hemoglobin 9.2 g/dL (12.9-16.9); Immature Granulocytes % 0.7 % (0-4); Lymphocytes # 0.9 K/mcL (0.6-4.6); Lymphocytes % 11.5 %; Mean Corpuscular HGB Conc 33.1 g/dL (31.6-35.5); Mean Corpuscular Hemoglobin 27.1 pg (28.0-33.3); Mean Corpuscular Volume 81.8 fL (83.0-100.0); Mean Platelet Volume 10.2 fL (9.4-12.4); Monocytes # 0.5 K/mcL (0.0-1.3); Neutrophils # 5.9 K/mcL (1.6-8.9); Platelet Count 172 K/mcL (140-400); Red Cell Distribution Width 16.6 % (11.5-14.5); Segmented Neutrophils % 78.7 %; White Blood Count 7.5 K/mcL (4.3-11.1)
[2021-01-23 11:10] LABS: Calcium 8.6 mg/dL (8.6-10.3)
== END 2021-01-23 12:20 | disposition home or self-care (01) ==
LOC: SDCAOSI 05:51 → 4WAOSI 13:56 → INTOOBSV 01-21 14:20
PROVIDERS: ADMIT Orthopaedic Surgery Orthopaedic Surgery of the Spine; ATTEND Orthopaedic Surgery Orthopaedic Surgery of the Spine